=== PATIENT | male | born 1980 | race Two or more races ===

== ENCOUNTER 2021-09-15 10:52 | Outpatient (REF) | payer OTHER, SELFPAY ==
--- NOTE | ~2021-09-15 | XR_ITS ---
EXAMINATION: XR LUMBOSACRAL SPINE CLINICAL INFORMATION: Lower back pain COMPARISON: None TECHNIQUE: Three views of the lumbosacral spine. FINDINGS: No acute fracture or subluxation. Vertebral body height and alignment maintained. Disc spaces are maintained. Small endplate osteophytes at L2-L3. The sacroiliac joints are symmetric. The visualized sacrum appears intact. Normal bowel gas pattern. XR/XR lumbar spine 2-3V IMPRESSION: Mild degenerative change noted at L2-L3.
== END 2021-09-15 10:53 | disposition home or self-care (01) ==
LOC: HO.XRAY 10:52
PROVIDERS: Absent Provider Internal Medicine; PCP Internal Medicine; Visit Provider Family Medicine
DX: M54.50 Low back pain, unspecified (principal)
CPT/HCPCS: 72100

== ENCOUNTER 2022-11-22 14:35 | Emergency (ER) | payer BC, SELFPAY ==
[2022-11-22 14:49] VITALS: BP 134/77; PULSE 77; RESP 16; TEMP 36.1; O2SAT 99; BMI 28.8
--- NOTE | 2022-11-22 14:49 | ED.GENADULT ---
HPI - General Adult General Chief complaint: General Medical Stated complaint: Needs testing? Time Seen by Provider: 11/22/22 15:02 Source: patient Mode of arrival: ambulatory Limitations: no limitations History of Present Illness HPI narrative: 42 yo male healthy here with no complaints but wants STD testing and testing for Campbell. Patient reports he had sexual intercourse with a new sexual partner on Monday. They did use a condom for the intercourse but had oral sex which was not protected. Per patient this woman notified him that she woke up yesterday with a sore throat and was going to get tested for STDs as well as mono and strep. The patient has no symptoms but he would like to be tested for the same. Related Data Allergies Allergy/AdvReac Type Severity Reaction Status Date / Time No Known Allergies Allergy Unverified 11/22/22 14:49 [No Known Allergies*] Review of Systems Review of Systems: Yes all other systems are reviewed and are negative Constitutional: Constitutional: Reports no additional constitutional complaints, Denies body ache(s), Denies chills, Denies fever(s), Denies headache(s) and Denies weakness Eyes: Eyes: Reports no additional eye complaints and Denies change in vision ENT: Reports system reviewed and no additional complaints, except as documented, Denies dizziness, Denies headache(s), Denies nasal congestion, Denies nasal discharge and Denies neck pain Cardiovascular: Cardiovascular: Reports no additional cardiovascular complaints, Denies chest pain, Denies leg edema and Denies dyspnea Respiratory: Respiratory: Reports no additional respiratory complaints, Denies cough and Denies dyspnea Gastrointestinal: Gastrointestinal: Reports no additional gastrointestinal complaints, Denies abdominal pain, Denies diarrhea, Denies nausea and Denies vomiting Genitourinary: Genitourinary: Denies urinary incontinence Musculoskeletal: Musculoskeletal: Reports no additional musculoskeletal complaints, Denies back pain, Denies arthralgias, Denies joint swelling, Denies neck pain, Denies numbness and Denies tingling Integumentary/Breasts: Skin/Breast: Reports system reviewed and no additional complaints, except as docu and Denies rash Neurologic: Reports system reviewed and no additional complaints, except as documented, Denies dizziness, Denies headache(s), Denies numbness, Denies tingling and Denies weakness PMF Past Medical History Attestation statement: The following information was validated with the patient. Source: old records reviewed and nursing notes reviewed Social History Social History Advance Directives: No Advance Directives Information Provided: No Physical Exam ED Vital Signs: Vital Signs - 24 hr 11/22/22 14:49 Temperature 97.0 F Pulse Rate 77 Respiratory Rate 16 Blood Pressure 134/77 Pulse Oximetry 99 Oxygen Delivery Method Room Air BMI result Body Mass Index 28.8 Const General: cooperative, healthy appearing, comfortable and no acute distress Orientation/consciousness: patient oriented x3 Limitations: no limitations HENMT Head: Yes normal to inspection Ears: hearing grossly normal bilaterally and TM's normal bilaterally Throat: Yes posterior oropharynx normal, Yes tonsils normal and Yes uvula midline Eyes General: appearance normal, both eyes and all related structures Pupils: Equal, round and reactive pupils present Neck Neck: Yes normal visual inspection, Yes full ROM and Yes no lymphadenopathy Chest Chest palpation & inspection: normal inspection of the chest Resp Effort & Inspection: normal respiratory effort Auscultation: clear to auscultation bilaterally Cardio Rate: regular rate Rhythm: regular rhythm Peripheral pulses: Peripheral pulses 2+ throughout GI Inspection: Yes normal to inspection Palpation (GI): Soft to palpation and nontender General: Yes no CVA tenderness Back/Spine/Pelvis Back: no CVA tenderness Skin General skin exam: no rashes or lesions noted Neuro General: patient oriented x3 and moves all extremities Cranial nerves: Yes Equal, round and reactive pupils present Cognition (Neuro): normal cognition Gait exam (Neuro): Normal gait present Extrem General: Yes normal to inspection, Yes no pedal edema and Yes no calf tenderness Course Course Course Narrative: RME: 42yo M w/no sig PMHx c/o requesting testing for strep and STI testing. States his girlfriend has sore throat and fever and is being tested for strep and ?STI's today and patient would like to be tested for everything as well. Pt is asymptomatic. Is sexually active w/one partner at present. Also requesting mono testing COVID, Strep, CTNG, Campbell ordered Full HPI, ROS and PE to be performed by primary ED provider. Reevaluation(s) Reevaluation #1: testing for strep, COVID and mono are negative. CT NG testing are pending. As patient is asymptomatic we will wait for his results to come back prior to treatment. Reviewed worrisome signs and symptoms of when to return to the emergency room. Comfortable plan for discharge home for Medical Decision Making Medical Decision Making MDM Narrative: 42-year-old male here seeking STD testing and mono testing as he had recent unprotected sexual intercourse with a new sexual partner who has symptoms of sore throat and fever and is being tested for same. Exam is benign will send testing for gonorrhea, chlamydia, mono, strep and COVID Differential Diagnosis Differential Diagnoses: The differential diagnosis associated with the presentation includes exposure Lab Data Labs: Lab Results 11/22/22 11/22/22 11/22/22 Range/Units 15:18 15:18 15:18 COVID-19 (GEORGE) Negative (Negative) COVID-19 Clin Com See Note Monoscreen Negative (Negative) S. pyogenes GrpA CARLO Negative (Negative) Discharge Plan Discharge Clinical Impression: Screen for STD (sexually transmitted disease) Patient Disposition: Home, Self-Care Instructions: Sexually Transmitted Diseases (ED), Safe Sex Practices (ED) Additional Instructions: testing for mono, strep and covid are negative we sent testing for gonorrhea/chlamydia. We will only call you if these are positive Referrals: Juli Mac MD [Primary Care Provider] - 1 week (as needed)
--- NOTE | 2022-11-22 16:24 | PC.NURSE ---
Patient able to give urine sample, sample sent to lab.
[2022-11-22 16:38] VITALS: BP 131/68; PULSE 72; RESP 18; O2SAT 100
== END 2022-11-22 16:40 | disposition home or self-care (01) ==
PROVIDERS: Emergency Provider Emergency Medicine Emergency Medical Services; PCP Internal Medicine
DX: Z11.3 Encounter for screening for infections with a predominantly sexual mode of transmission (principal); Z11.8 Encounter for screening for other infectious and parasitic diseases; Z11.59 Encounter for screening for other viral diseases; Z72.89 Other problems related to lifestyle; Z72.51 High risk heterosexual behavior; Z20.822 Contact with and (suspected) exposure to COVID-19
CPT/HCPCS: 0353U; 86308; 87635; 87651; 99283; 99284

== ENCOUNTER 2023-02-06 14:45 | Outpatient (REF) | payer BC, SELFPAY ==
[2023-02-06 17:38] LABS: MANUAL DIFF FLAG NO
[2023-02-06 17:44] LABS: Basophils Absolute Auto 0.1 X10*3/uL (0.0-0.2); Basophils Percent Auto 0.7 % (0-2); Eosinophils Absolute Auto 0.1 X10*3/uL (0.0-0.4); Eosinophils Percent Auto 0.6 % (0-4); Hematocrit 47.3 % (42.0-52.0); Hemoglobin 15.7 g/dl (14.0-18.0); Imm Gran Abs Auto 0.03 X10*3/uL (0.00-0.03); Imm Gran Pct Auto 0.4 % (0.0-0.4); Lymphocytes Percent Auto 25.3 % (20-40); Mean Corpuscular HGB Conc 33.2 g/dl (31.0-36.0); Mean Corpuscular Hemoglobin 29.6 pg (27.0-33.0); Mean Corpuscular Volume 89.2 fL (80.0-98.0); Monocytes Absolute Auto 0.5 X10*3/uL (0.1-1.2); Monocytes Percent Auto 5.8 % (2-11); Neutrophils Absolute Auto 5.4 x10*3/uL (2.0-8.3); Neutrophils Percent Auto 67.2 % (45-73); Platelet Count 297 X10*3/uL (160-400); Red Cell Distribution Width 14.1 % (11.0-16.0); White Blood Count 8.1 X10*3/uL (4.8-10.8)
[2023-02-06 18:03] LABS: Anion Gap 11 (12-20); Blood Urea Nitrogen 14 mg/dL (9-16); Calcium 9.7 mg/dL (8.4-10.2); Carbon Dioxide 29 mmol/L (22-29); Chloride 105 mmol/L (96-108); Estimated Glomerular Filt Rate > 60; Glucose Random 73 mg/dL (60-115); Potassium 3.8 mmol/L (3.3-5.1); Sodium 141 mmol/L (135-145)
[2023-02-06 18:13] LABS: TSH reflex Free T4 2.05 uIU/mL (0.32-4.0)
== END 2023-02-06 14:46 | disposition home or self-care (01) ==
LOC: HO.CHCLDS 14:45
PROVIDERS: Visit Provider Internal Medicine
DX: E89.0 Postprocedural hypothyroidism (principal)
CPT/HCPCS: 36415; 80048; 84443; 85025

== ENCOUNTER 2023-02-06 15:44 | Outpatient (REF) | payer BC, SELFPAY ==
--- NOTE | ~2023-02-06 | XR_ITS ---
EXAMINATION: XR THORACOLUMBAR SPINE CLINICAL INFORMATION: Chronic midline thoracic back pain COMPARISON: 12/13/2017 TECHNIQUE: 3 views of the thoracic spine FINDINGS: Mild multilevel thoracic spondylosis. No thoracic vertebral body compression fractures are identified, although visualization limited due to overlying bone and soft tissues. XR/XR thoracic spine 2V IMPRESSION: Mild multilevel thoracic spondylosis. Additional imaging with CT scan or MRI should be considered for better visualization as these modalities are much more sensitive for detection of fracture or other underlying pathology.
== END 2023-02-06 15:45 | disposition home or self-care (01) ==
LOC: HO.XRAY 15:44
PROVIDERS: PCP Internal Medicine; Visit Provider Internal Medicine
DX: M54.6 Pain in thoracic spine (principal)
CPT/HCPCS: 72070

== ENCOUNTER 2023-02-16 15:28 | Outpatient (AMB) | payer BC, SELFPAY ==
--- NOTE | 2023-02-16 15:31 | MHC.OFFVIS ---
Intake Vital Signs 02/16/23 15:38 Height 5 ft 9 in Weight 193 lb 6 oz BMI 28.6 BP 124/95 H Blood Pressure Location Rt brachial Position Sitting Pulse 81 Pulse Source Pulse Oximeter Pulse Oximetry (%) 99 Oxygen Delivery Method Room Air Intake Visit Reasons: chronic thoracic back pain Allergies No Known Allergies [No Known Allergies*] Allergy (Verified 02/16/23 15:35) Medication List - Last Reconciled 02/16/23 by ROSALINO Rivera albuterol sulfate 90 mcg/actuation 2 puffs inhalation Q4-6H PRN celecoxib (Celebrex) 200 mg PO BID levothyroxine 137 mcg PO QAM HPI chronic thoracic back pain HPI Details Patient is a pleasant 42 years old male presents today for initial evaluation of mid thoracic back pain and pain between his shoulder blades. This has been chronic pain for him but reoccurred again over one year ago. Denies any trauma, injury or falls. Patient reports pain comes on with any movements and especially during his gym work outs. Pain is constant and rates in highest intensity at 10/10, least 3/10 and average for past month at 8/10. Pain affects his daily activities, functioning, sleep, mood and quality of life. He recently started on Celebrex for elbow tendonitis and has noted partial pain relief along with heat therapy and lidocaine patches. He continues to work out with gym but is not able to complete his daily workouts. Denies previous spine surgery or injections. Patient reports previous PT was directed at mid and low back pain and has aggravated his symptoms. 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 Thoracic spine MRI was reviewed with Dr. Colon and is noted below. Denies any fever, weight loss, chest pain, shortness of breaths, weakness, gait imbalances, bladder or bowel dysfunction or saddle anesthesia. Location Mid back radiates into lower back and flank areas bilat, shoulder blades Duration Chronic pain for >1 year Characteristics of symptom or complaint Aching, sharp, pins and tingling, stabbing Aggravating or associated factors Movements, pulling, lifting, bench pressing, working out Relieving factors Rest, Tylenol, Motrin, Advil, lidocaine patches, heating pads Treatment PT- made pain worse, HEP, gym PFSH Medical History (Updated 02/18/23 @ 23:53 by ROSALINO Rivera) Medial epicondylitis of right elbow Hypothyroidism Social History (Updated 02/16/23 @ 15:51 by Rupal Oh) Alcohol intake: current Alcohol intake frequency: a few times a month Alcohol type: hard liquor Patient Tobacco Use Status: Never used Tobacco Review of Systems Const All systems reviewed & are unremarkable except as noted in HPI and below Physical Exam Vital Signs: Last Vital Signs Pulse 81 02/16/23 15:38 BP 124/95 H 02/16/23 15:38 Pulse Ox 99 02/16/23 15:38 Oxygen Delivery Method Room Air 02/16/23 15:38 BMI result Body Mass Index 28.6 General: Appears afebrile. Alert and oriented. Mood and affect appropriate. Follows and participates in conversation appropriately. Respiratory effort is unlabored. No cough. Able to transition from sit to stand unassisted. Ambulates with bilaterally normal heel strike and toe off. Neck Neck: Yes normal visual inspection, Yes full ROM, Yes no lymphadenopathy, Yes supple, No anterior neck swelling and Yes no JVD Chest Chest palpation & inspection: normal inspection of the chest, no localized rib tenderness, no tenderness, No rash and other (multiple tattoos ) Resp Effort & Inspection: normal respiratory effort, able to speak in complete sentences, no cough and symmetric chest movement Back/Spine/Pelvis Other: Lumbar extension reproduces mild to moderate mid to lower back pain. Lumbar flexion reproduces stiffness in the mid thoracic regions. No tenderness to palpation across the thoracic spine. Unable to reproduce radicular pain with palpation over the mid and low thoracic spine. Moderate TTP throughout bilateral upper and lower trapezius and rhomboids muscles. Cervical Spine: cervical ROM normal and No Cervical spine tenderness Thoracic/Lumbar Spine: thoracic and lumbar spine normal to inspection, No Thoracic/lumbar spine scar(s), Lasegue's sign negative, straight leg raise negative bilaterally, pain with thoraco-lumbar ROM, paraspinal muscle tenderness, thoraco-lumbar spasm, No thoracic spinal tenderness and No lumbar spinal tenderness Results Reviewed Results Reviewed: XR LUMBOSACRAL SPINE 09/15/22 CLINICAL INFORMATION: Lower back pain COMPARISON: None TECHNIQUE: Three views of the lumbosacral spine. FINDINGS: No acute fracture or subluxation. Vertebral body height and alignment maintained. Disc spaces are maintained. Small endplate osteophytes at L2-L3. The sacroiliac joints are symmetric. The visualized sacrum appears intact. Normal bowel gas pattern. IMPRESSION: Mild degenerative change noted at L2-L3. XR THORACOLUMBAR SPINE 02/06/23 CLINICAL INFORMATION: Chronic midline thoracic back pain COMPARISON: 12/13/2017 TECHNIQUE: 3 views of the thoracic spine FINDINGS: Mild multilevel thoracic spondylosis. No thoracic vertebral body compression fractures are identified, although visualization limited due to overlying bone and soft tissues. MR SPINE THORACIC without CONTRAST 02/08/23 INDICATION: Chronic midline thoracic back pain; multilevel spondylosis of the thoracic spine. TECHNIQUE: Unenhanced multiplanar, multisequence MR imaging of the thoracic spine. COMPARISON: None available. FINDINGS: There is normal alignment of the thoracic vertebral bodies. Vertebral bodies are of normal height. There is abnormal T2 prolongation of the RIGHT pedicle, lamina and spinous process of T5 as well as the RIGHT pedicle of T6. No additional marrow signal changes are identified. No findings of vertebral body fracture. No findings of disc protrusion. No cord signal abnormality. No acute paraspinal abnormality identified. IMPRESSION: There is normal alignment of the thoracic vertebral bodies. Vertebral bodies are of normal height. There is abnormal T2 prolongation of the RIGHT pedicle, lamina and spinous process of T5 as well as the RIGHT pedicle of T6. No additional marrow signal changes are identified. No findings of vertebral body fracture. No findings of disc protrusion. No cord signal abnormality. No acute paraspinal abnormality identified. Whole-body bone scan and CT examination may better differentiate and classified this particular finding. Correlate with level of patient''s symptoms. Subhash Hammonds MD Assessment & Plan Assessment & Plan (1) Muscle spasm: Code(s): M62.838 - Other muscle spasm (2) Thoracic radiculitis: Code(s): M54.14 - Radiculopathy, thoracic region (3) Degenerative disc disease, cervical: Code(s): M50.30 - Other cervical disc degeneration, unspecified cervical region (4) Chronic midline thoracic back pain: Code(s): M54.6 - Pain in thoracic spine; G89.29 - Other chronic pain Plan Recommend formal course of Cervical spine physical therapy for potential disc radiculitis, as noted per recent thoracic spine MRI for multilevel cervical disc bulging and degenerative disc disease which can be a cause pain between his shoulder bladdes. For thoracic radicular pain, we will schedule T5-T6 retrolaminar injections with steroid with local and fluoroscopy. Expectations, risks and benefits were reviewed. Patient is aware she will be contacted to schedule this procedure. All questions were answered and the patient is in agreement of plan. Follow-up after injections and sooner as needed. Orders: Orders XR cervical spine min 6V 02/18/23 M50.30 - Other cervical disc degeneration, unspecified cervical region, M54.14 - Radiculopathy, thoracic region PT Evaluation and Treatment 02/17/23 M50.30 - Other cervical disc degeneration, unspecified cervical region, M54.14 - Radiculopathy, thoracic region, M62.838 - Other muscle spasm Medications: New methocarbamol 750 mg PO Q8H 30 tabs 0RF muscle M54.14 - Radiculopathy, thoracic region, M62.838 - Other muscle spasm Coding Level of Care Code New Pt Level 4 (10956) Diagnoses Muscle spasm M62.838 Thoracic radiculitis M54.14 Degenerative disc disease, cervical M50.30 Chronic midline thoracic back pain M54.6; G89.29
[2023-02-16 15:38] VITALS: BP 124/95; PULSE 81; O2SAT 99; BMI 28.6
== END 2023-02-16 16:07 | disposition home or self-care (01) ==
PROVIDERS: PCP Internal Medicine; Visit Provider Nurse Practitioner Family
DX: M62.838 Other muscle spasm (principal); M54.14 Radiculopathy, thoracic region; M50.30 Other cervical disc degeneration, unspecified cervical region; M54.6 Pain in thoracic spine; G89.29 Other chronic pain
CPT/HCPCS: 99204

== ENCOUNTER → 2023-02-16 15:28 | Outpatient (BNVA) | payer BC, SELFPAY | PROVIDERS: PCP Internal Medicine; Visit Provider Nurse Practitioner Family ==

== ENCOUNTER 2023-03-07 15:11 | Outpatient (REF) | payer BC, SELFPAY ==
[2023-03-09 16:09] LABS: Immunoglobulin A 435 mg/dL (47-310)
[2023-03-09 18:18] LABS: Gliadin Deamidated IgA Ab 6.2 U/mL; Gliadin Deamidated IgG Ab <1.0 U/mL; Transglutaminase Ab IgG <1.0 U/mL; Transglutaminase IgA <1.0 U/mL
[2023-03-14 13:18] LABS: Endomysial IgA Antibody Negative (Negative)
== END 2023-03-07 15:12 | disposition home or self-care (01) ==
LOC: HO.CHCLDS 15:11
PROVIDERS: Visit Provider Internal Medicine
DX: R14.0 Abdominal distension (gaseous) (principal)
CPT/HCPCS: 36415; 82784; 86231; 86258; 86364

== ENCOUNTER 2023-03-10 15:37 | Outpatient (REF) | payer BC, SELFPAY | END 2023-03-10 15:38 | disposition home or self-care (01) | LOC: HO.CHCLNP 15:37 | PROVIDERS: Visit Provider Internal Medicine | DX: R14.0 Abdominal distension (gaseous) (principal) | CPT/HCPCS: 87338 ==

== ENCOUNTER 2023-04-12 05:58 | Outpatient (REF) | payer BC, SELFPAY ==
--- NOTE | ~2023-04-12 | FL_ITS ---
EXAMINATION: XR FLUOROSCOPY WITH IMAGES CLINICAL INFORMATION: Radiculopathy, thoracic region. COMPARISON: None available. TECHNIQUE: Fluoroscopy Supervised By: Dr. Reuben Colon. Fluoroscopy Time: 0.2 minutes. Cumulative Dose: 6.61 mGy. DAP: 0.750 Gycm2. Images: 4. FINDINGS: Images demonstrate needle placement and epidural contrast injection of the lower thoracic spine. FL/FL guidance in treatment room IMPRESSION: Fluoroscopy guidance for pain management procedure.
== END 2023-04-12 05:59 | disposition home or self-care (01) ==
LOC: CF 05:58
PROVIDERS: Visit Provider Internal Medicine
DX: M54.14 Radiculopathy, thoracic region (principal); M54.6 Pain in thoracic spine; G89.29 Other chronic pain
CPT/HCPCS: 62321; J1020; J2795; Q9967

== ENCOUNTER 2023-04-12 08:02 | Outpatient (AMB) | payer BC, SELFPAY ==
[2023-04-12 08:06] VITALS: BP 122/82; PULSE 66; RESP 18; O2SAT 97; BMI 28.5
--- NOTE | 2023-04-12 08:06 | MHC.OFFVIS ---
Intake Vital Signs 04/12/23 08:06 04/12/23 09:05 Height 5 ft 9 in 5 ft 9 in Weight 193 lb 193 lb BMI 28.5 28.5 BP 122/82 126/84 Blood Pressure Location Lt brachial Lt brachial Position Sitting Sitting Respiration 18 18 Pulse 66 Pulse Source Pulse Oximeter Pulse Oximeter Pulse Oximetry (%) 97 98 Oxygen Delivery Method Room Air Room Air Comment Pre-Op Post-Op Intake Visit Reasons: Cal theraputic T5-T6 retrolaminar inj Allergies No Known Allergies [No Known Allergies*] Allergy (Verified 02/16/23 15:35) HPI Cal theraputic T5-T6 retrolaminar inj HPI Details Patient presents for scheduled procedure. Denies any recent cough, cold, infection, fever or other significant changes in medical history since last office visit. [facility] Medical History (Updated 02/18/23 @ 23:53 by ROSALINO Rivera) Medial epicondylitis of right elbow Hypothyroidism (Updated 02/16/23 @ 15:51 by Rupal Oh) Alcohol intake: current Alcohol intake frequency: a few times a month Alcohol type: hard liquor Patient Tobacco Use Status: Never used Tobacco Physical Exam Vital Signs: Last Vital Signs Pulse 66 04/12/23 08:06 Resp 18 04/12/23 09:05 BP 126/84 04/12/23 09:05 Pulse Ox 98 04/12/23 09:05 Oxygen Delivery Method Room Air 04/12/23 09:05 BMI result Body Mass Index 28.5 Office Procedures Joint Injection/Drain Joint Injection/Drain Details: Retrolaminar steroid injection, T5 and T6, bilateral After obtaining written consent, pre-procedure blood pressure and heart rate were stable and recorded in the nursing record. The patient was placed in the prone position. The thoracic spine area was widely prepped with chloraprep and draped in sterile fashion. Fluoroscopic guidance was used to identify the desired retrolaminar space and for needle placement. Subcutaneous 0.5% lidocaine was used to anesthetize the skin overlying the target. A 22 gauge spinal needle was advanced until bony contact was achieved with the target laminar surface. 1cc of omnipaque 180 was injected to rule out vascular and intrathecal uptake. Next 1.5 mL solution containing ropivacaine 0.5% and 10 mg Depo-Medrol was injected. The needle tract tubing was then cleared with 1 ml of 0.5% lidocaine. The needle was removed, skin cleansed and a sterile bandage was applied. The same procedure was repeated on both sides at T5 and T6 levels. The patient tolerated the procedure well and no complications were encountered. Following the procedure the patient's vital signs were stable. The patient was discharged home in good condition with post-procedural instructions. Time Out: Immediately prior to the procedure, the following was verbally confirmed that there is a signed consent form and that the correct patient, planned procedure, site and side are consistent with documentation and that necessary equipment and/or blood products are available prior to the start of the case. Complications: none EBL: <5 cc Coding Procedure code (CPT) selection complete Assessment & Plan Assessment & Plan (1) Chronic midline thoracic back pain: Code(s): M54.6 - Pain in thoracic spine; G89.29 - Other chronic pain (2) Thoracic radiculitis: Code(s): M54.14 - Radiculopathy, thoracic region Plan Patient is status post bilateral T5 and T6 retrolaminar injections. Patient tolerated procedure well and was discharged home in stable condition with discharge instructions. All questions were answered. We will follow-up via telephone or in clinic to assess response to therapy. A follow-up appointment was made during today's visit. Orders: Orders FL guidance in treatment room Today M54.14 - Radiculopathy, thoracic region Coding Level of Care Code Procedure Only Diagnoses Chronic midline thoracic back pain M54.6; G89.29 Thoracic radiculitis M54.14
[2023-04-12 09:05] VITALS: BP 126/84; RESP 18; O2SAT 98; BMI 28.5
== END 2023-04-12 08:56 | disposition home or self-care (01) ==
LOC: HO.PMCPRC 08:02
PROVIDERS: PCP Internal Medicine; Visit Provider Internal Medicine
DX: M54.14 Radiculopathy, thoracic region (principal); M54.6 Pain in thoracic spine; G89.29 Other chronic pain
CPT/HCPCS: 62321

== ENCOUNTER → 2023-05-12 08:34 | Outpatient (BNVA) | payer BC, SELFPAY | PROVIDERS: PCP Internal Medicine; Visit Provider Nurse Practitioner Family ==

== ENCOUNTER 2023-05-12 08:35 | Outpatient (AMB) | payer BC, SELFPAY ==
--- NOTE | 2023-05-12 08:36 | A.OFFVIS_ITS ---
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 Colon. Patient reports 70% pain relief since procedures with improved functioning, daily activities and sleep. He continues to endorse mild mid thoracic back pain and muscle spasms. Requests refill for methocarbamol. Patient has also stopped going to the gym and avoids heavy weight lifting and finds this is also partia lly improving his symptoms. He reports occasional axial cervical spine pain with muscle stiffness. He has full range of motion in all cervical planes. Patient was reminded to complete cervical spine xray ordered in on 02/18/23. Denies any recent cough, cold, infection, fever, chest pain, shortness of breaths or other significant changes in medical history since last office visit. Past Procedures: 04/12/23: therapeutic bilateral T5-T6 re trolaminar injection-70% ongoing pain relief PRIOR: Patient is a pleasant 42 years old male presents today for initial evaluation of mid thoracic back pain and pain between his shoulder blades. This has been chronic pain for him but reoccurred again over one year ago. Denies any trauma, injury or falls. Patient reports pain comes on with any movements and especially during his gym work outs. Pain is constant and rates in highest intensity at 10/10, least 3/10 and average for past month at 8/10. Pain affects his daily activities, functioning, sleep, mood and quality of life. He recently started on Celebrex for elbow tendonitis and has noted partial pain relief along with heat therapy and lidocaine patches. He continues to work out with gym but is not able to complete his daily workouts. Denies previous spine surgery or injections. Patient reports previous PT was directed at mid and low back pain and has aggravated his symptoms. 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 Thoracic spine MRI was reviewed with Dr. Colon and is noted below. Denies any fever, weight loss, chest pain, shortness of breaths, weakness, gait imbalances, bladder or bowel dysfunction or saddle anesthesia. Location Mid back radiates into lower back and flank areas bilat, shoulder blades Duration Chronic pain for >1 year Characteristics of symptom or complaint Aching, sharp, pins and tingling, stabbing Aggravating or associated factors Movements, pulling, lifting, bench pressing, working out Relieving factors Rest, Tylenol, Motrin, Advil, lidocaine patches, heating pads Treatment PT- made pain worse, HEP, gym PFSH Medical History Medial epicondylitis of right elbow Hypothyroidism Social History Alcohol intake: current Alcohol intake frequency: a few times a month Alcohol type: hard liquor Patient Tobacco Use Status: Never used Tobacco Review of Systems Const All systems reviewed & are unremarkable except as noted in HPI and below Physical Exam General: Appears afebrile. Alert and oriented. Mood and affect appropriate. Follows and participates in conversation appropriately. Respiratory effort is unlabored. No cough. Able to transition from sit to stand unassisted. Ambulates with bilaterally normal heel strike and toe off. Neck Neck: Yes normal visual inspection, Yes full ROM, Yes no lymphadenopathy, Yes supple, No anterior neck swelling and Yes no JVD Resp Effort & Inspection: normal respiratory effort, no cough and symmetric chest movement Back/Spine/Pelvis Cervical Spine: cervical ROM normal, cervical muscular tenderness, pain with cervical ROM and No Cervical spine tenderness Thoracic/Lumbar Spine: thoracic and lumbar spine normal to inspection, No Thoracic/lumbar spine scar(s), Lasegue's sign negative, straight leg raise negative bilaterally, pain with thoraco-lumbar ROM, paraspinal muscle tenderness, thoraco-lumbar spasm, No thoracic spinal tenderness and No lumbar spinal tenderness Results Reviewed Results Reviewed: XR LUMBOSACRAL SPINE 09/15/22 CLINICAL INFORMATION: Lower back pain COMPARISON: None TECHNIQUE: Three views of the lumbosacral spine. FINDINGS: No acute fracture or subluxation. Vertebral body height and alignment maintained. Disc spaces are maintained. Small endplate osteophytes at L2-L3. The sacroiliac joints are symmetric. The visualized sacrum appears intact. Normal bowel gas pattern. IMPRESSION: Mild degenerative change noted at L2-L3. XR THORACOLUMBAR SPINE 02/06/23 CLINICAL INFORMATION: Chronic midline thoracic back pain COMPARISON: 12/13/2017 TECHNIQUE: 3 views of the thoracic spine FINDINGS: Mild multilevel thoracic spondylosis. No thoracic vertebral body compression fractures are identified, although visualization limited due to overlying bone and soft tissues. MR SPINE THORACIC without CONTRAST 02/08/23 INDICATION: Chronic midline thoracic back pain; multilevel spondylosis of the thoracic spine. TECHNIQUE: Unenhanced multiplanar, multisequence MR imaging of the thoracic spine. COMPARISON: None available. FINDINGS: There is normal alignment of the thoracic vertebral bodies. Vertebral bodies are of normal height. There is abnormal T2 prolongation of the RIGHT pedicle, lamina and spinous process of T5 as well as the RIGHT pedicle of T6. No additional marrow signal changes are identified. No findings of vertebral body fracture. No findings of disc protrusion. No cord signal abnormality. No acute paraspinal abnormality identified. IMPRESSION: There is normal alignment of the thoracic vertebral bodies. Vertebral bodies are of normal height. There is abnormal T2 prolongation of the RIGHT pedicle, lamina and spinous process of T5 as well as the RIGHT pedicle of T6. No additional marrow signal changes are identified. No findings of vertebral body fracture. No findings of disc protrusion. No cord signal abnormality. No acute paraspinal abnormality identified. Whole-body bone scan and CT examination may better differentiate and classified this particular finding. Correlate with level of patient''s symptoms. Subhash Hammonds MD Assessment & Plan Assessment & Plan (1) Muscle spasm: Code(s): M62.838 - Other muscle spasm (2) Thoracic radiculitis: Code(s): M54.14 - Radiculopathy, thoracic region (3) Degenerative disc disease, cervical: Code(s): M50.30 - Other cervical disc degeneration, unspecified cervical region (4) Chronic midline thoracic back pain: Code(s): M54.6 - Pain in thoracic spine; G89.29 - Other chronic pain Plan Patient is status psot bilateral T5-T6 retrolaminar steroid injection on 04/12/23 with ongoing 70% pain relief, improved functioning and sleep. Recommend formal course of Cervical spine physical therapy for potential disc radiculitis, as noted per recent thoracic spine MRI for multilevel cervical disc bulging and degenerative disc disease which can be a cause pain between his shoulder blades. PT order was provided at previous visit. Patient was reminded to complete cervical spine xray. Patient is aware that he can not receive another therapeutic injection in the same area for another three months and will be eligible after 07/13/23. Patient is aware to monitor for side effects. All questions were answered and the patient is in agreement of plan. Follow up as needed. Medications: Refilled methocarbamol 750 mg PO Q8H 30 tabs 0RF muscle M54.14 - Radiculopathy, thoracic region, M62.838 - Other muscle spasm Coding Level of Care Code Est Pt Level 3 (07850) Diagnoses Muscle spasm M62.838 Thoracic radiculitis M54.14 Degenerative disc disease, cervical M50.30 Chronic midline thoracic back pain M54.6; G89.29
[2023-05-12 08:40] VITALS: BP 120/71; PULSE 63; O2SAT 100; BMI 28.2
== END 2023-05-12 08:47 | disposition home or self-care (01) ==
PROVIDERS: PCP Internal Medicine; Visit Provider Nurse Practitioner Family
DX: M62.838 Other muscle spasm (principal); M54.14 Radiculopathy, thoracic region; M50.30 Other cervical disc degeneration, unspecified cervical region; M54.6 Pain in thoracic spine; G89.29 Other chronic pain
CPT/HCPCS: 99213

== ENCOUNTER 2023-05-17 13:40 | Outpatient (REF) | payer BC, SELFPAY | END 2023-05-17 13:41 | disposition home or self-care (01) | LOC: HO.XRAY 13:40 | PROVIDERS: PCP Internal Medicine; Visit Provider Nurse Practitioner Family | DX: M50.30 Other cervical disc degeneration, unspecified cervical region (principal); M54.14 Radiculopathy, thoracic region | CPT/HCPCS: 72052 ==

== ENCOUNTER 2023-09-05 10:10 | Outpatient (REF) | payer BC, SELFPAY ==
[2023-09-05 14:28] LABS: MANUAL DIFF FLAG NO
[2023-09-05 14:42] LABS: Basophils Absolute Auto 0.1 X10*3/uL (0.0-0.2); Basophils Percent Auto 0.9 % (0-2); Eosinophils Absolute Auto 0.3 X10*3/uL (0.0-0.4); Eosinophils Percent Auto 2.7 % (0-4); Hematocrit 45.4 % (42.0-52.0); Imm Gran Abs Auto 0.05 X10*3/uL (0.00-0.03); Imm Gran Pct Auto 0.5 % (0.0-0.4); Lymphocytes Absolute Auto 1.4 X10*3/uL (1.2-4.9); Lymphocytes Percent Auto 14.8 % (20-40); Mean Corpuscular Hemoglobin 29.6 pg (27.0-33.0); Mean Corpuscular Volume 89.5 fL (80.0-98.0); Mean Platelet Volume 11.2 fL (9.4-12.4); Monocytes Absolute Auto 0.4 X10*3/uL (0.1-1.2); Monocytes Percent Auto 4.5 % (2-11); Neutrophils Absolute Auto 7.1 x10*3/uL (2.0-8.3); Neutrophils Percent Auto 76.6 % (45-73); Platelet Count 292 X10*3/uL (160-400); Red Blood Count 5.07 X10*6/uL (4.60-5.80); White Blood Count 9.2 X10*3/uL (4.8-10.8)
[2023-09-05 18:05] LABS: Alanine Aminotransferase 31 U/L (0-40); Albumin Level 4.2 g/dL (3.5-5.0); Alkaline Phosphatase 102 U/L (39-117); Anion Gap 12 (12-20); Aspartate Amino Transferase 23 U/L (5-37); Bilirubin Total 1.2 mg/dL (0.0-1.0); Blood Urea Nitrogen 22 mg/dL (9-16); Calcium 9.5 mg/dL (8.4-10.2); Carbon Dioxide 27 mmol/L (22-29); Chloride 107 mmol/L (96-108); Cholesterol 188 mg/dL (<200); Estimated Glomerular Filt Rate > 60; Glucose Random 79 mg/dL (60-115); HDL Cholesterol 68 mg/dL (>40); LDL Cholesterol Calculated 109 mg/dL (<100); Potassium 3.6 mmol/L (3.3-5.1); Sodium 142 mmol/L (135-145); Total Protein 7.7 g/dL (6.5-8.0); Triglycerides 59 mg/dL (<150)
[2023-09-05 18:08] LABS: TSH reflex Free T4 4.19 uIU/mL (0.32-4.0); Vitamin D 25-OH Total 28.3 ng/mL (>30)
[2023-09-05 18:42] LABS: Free T4 (Free Thyroxine) 1.04 ng/dL (0.71-1.85)
[2023-09-05 19:14] LABS: Folate 8.1 ng/mL (> or = 4.0); Prostate Specific Antigen Scr 1.78 ng/mL (<0.05-4.0); Vitamin B12 420 pg/mL (200-900)
[2023-09-10 14:13] LABS: Testosterone, Free 30.5 pg/mL (35.0-155.0); Testosterone, Total 186 ng/dL (250-1100)
== END 2023-09-05 10:11 | disposition home or self-care (01) ==
LOC: HO.CHCLDS 10:10
PROVIDERS: Visit Provider Internal Medicine
DX: Z00.00 Encounter for general adult medical examination without abnormal findings (principal); Z12.5 Encounter for screening for malignant neoplasm of prostate; N52.8 Other male erectile dysfunction; E89.0 Postprocedural hypothyroidism
CPT/HCPCS: 36415; 80053; 80061; 82306; 82607; 82746; 84153; 84402; 84403; 84439; 84443; 85025

== ENCOUNTER 2023-09-27 14:55 | Outpatient (REF) | payer BC, SELFPAY ==
[2023-10-04 15:43] LABS: Testosterone, Free 43.2 pg/mL (35.0-155.0); Testosterone, Total 272 ng/dL (250-1100)
== END 2023-09-27 14:56 | disposition home or self-care (01) ==
LOC: HO.CHCLDS 14:55
PROVIDERS: Visit Provider Internal Medicine
DX: N52.8 Other male erectile dysfunction (principal); E89.0 Postprocedural hypothyroidism
CPT/HCPCS: 36415; 84402; 84403

== ENCOUNTER 2023-10-13 08:41 | Outpatient (REF) | payer BC, SELFPAY ==
[2023-10-20 13:18] LABS: Testosterone, Free 65.2 pg/mL (35.0-155.0); Testosterone, Total 388 ng/dL (250-1100)
== END 2023-10-13 08:42 | disposition home or self-care (01) ==
LOC: HO.CHCLDS 08:41
PROVIDERS: Visit Provider Internal Medicine
DX: N52.8 Other male erectile dysfunction (principal); E29.1 Testicular hypofunction
CPT/HCPCS: 36415; 84402; 84403

== ENCOUNTER 2024-02-04 02:35 | Emergency (ER) | payer OTHER, BC, SELFPAY ==
[2024-02-04 02:40] VITALS: BP 136/84; PULSE 108; O2SAT 97
[2024-02-04 02:47] VITALS: BP 116/74; PULSE 80; RESP 16; TEMP 36.7; O2SAT 99
[2024-02-04 02:51] VITALS: BMI 27.9
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
[2024-02-04 03:33] VITALS: BP 116/74; PULSE 80; RESP 16; TEMP 36.7; O2SAT 99
== END 2024-02-04 03:33 | disposition home or self-care (01) ==
PROVIDERS: Emergency Provider Internal Medicine; PCP Internal Medicine
DX: S01.01XA Laceration without foreign body of scalp, initial encounter (principal); V43.52XA Car driver injured in collision with other type car in traffic accident, initial encounter; Y93.89 Activity, other specified; Y92.488 Other paved roadways as the place of occurrence of the external cause; Y99.8 Other external cause status; Z79.899 Other long term (current) drug therapy
CPT/HCPCS: 99283

== ENCOUNTER 2024-02-05 21:29 | Emergency (ER) | payer OTHER, BC, SELFPAY ==
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
[2024-02-05 21:38] VITALS: BP 114/81; PULSE 79; RESP 20; TEMP 37.1; O2SAT 97; BMI 34.2
[2024-02-05 23:22] VITALS: BP 133/80; PULSE 62; RESP 16; TEMP 36.7; O2SAT 99
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
[2024-02-06 00:29] VITALS: BP 140/82; PULSE 57; RESP 16; TEMP 36.2; O2SAT 98
== END 2024-02-06 00:30 | disposition home or self-care (01) ==
PROVIDERS: Emergency Provider Emergency Medicine; PCP Internal Medicine
DX: S01.91XA Laceration without foreign body of unspecified part of head, initial encounter (principal); R51.9 Headache, unspecified; R42 Dizziness and giddiness; M54.50 Low back pain, unspecified; V43.52XA Car driver injured in collision with other type car in traffic accident, initial encounter; Y93.89 Activity, other specified; Y92.488 Other paved roadways as the place of occurrence of the external cause; Y99.8 Other external cause status; Z79.899 Other long term (current) drug therapy
CPT/HCPCS: 70450; 99282; 99284

== ENCOUNTER 2024-05-01 15:35 | Outpatient (REF) | payer OTHER, BC, SELFPAY ==
--- NOTE | ~2024-05-01 | XR_ITS ---
EXAMINATION: XR CHEST CLINICAL INFORMATION: cough x 3 months COMPARISON: X-ray dated October 04, 2017 TECHNIQUE: 2 views of the chest were obtained. FINDINGS: Submitted for interpretation on May 02, 2024. No consolidation, pleural effusion or pneumothorax. Pulmonary reticular pattern. Cardiomediastinal silhouette demonstrates normal size with a round apex. Osseous structures are intact. XR/XR chest 2V IMPRESSION: No acute airspace disease. Electronically signed by: Juan Miguel MD 05/02/2024 07:20 AM SHAMIR
== END 2024-05-01 15:36 | disposition home or self-care (01) ==
LOC: HO.XRAY 15:35
PROVIDERS: Visit Provider Nurse Practitioner Family
DX: R05.8 Other specified cough (principal)
CPT/HCPCS: 71046

== ENCOUNTER → 2024-05-01 15:39 | Outpatient (BNV) | payer OTHER, BC, SELFPAY | PROVIDERS: Visit Provider Radiology Diagnostic Radiology | DX: R05.8 Other specified cough (principal) | CPT/HCPCS: 71046 ==

== ENCOUNTER 2024-05-14 09:38 | Outpatient (REF) | payer BC, SELFPAY ==
[2024-05-14 15:03] LABS: C Reactive Protein 0.51 mg/dL (< or = 0.50)
[2024-05-14 15:24] LABS: Erythrocyte Sedimentation Rate 23 MM/HR (0-15)
[2024-05-14 15:31] LABS: TSH reflex Free T4 1.44 uIU/mL (0.32-4.0)
[2024-05-14 18:56] LABS: CT PCR NOT DETECTED (Not Detect.); NG PCR NOT DETECTED (Not Detect.)
[2024-05-16 13:58] LABS: Scleroderma 70 Antibody <1.0 NEG AI (<1.0 NEG)
[2024-05-16 14:05] LABS: Syphilis Screen Nonreactive (Nonreactive)
[2024-05-16 15:11] LABS: HIV AB/AG Nonreactive (Nonreactive); HIV Num 1 0.06 S/CO (0.00-0.99)
[2024-05-17 07:24] LABS: Anti Nuclear Antibody Screen POSITIVE (NEGATIVE)
[2024-05-19 01:04] LABS: Testosterone, Total 399 ng/dL (250-1100)
== END 2024-05-14 09:39 | disposition home or self-care (01) ==
LOC: HO.CHCLDS 09:38
PROVIDERS: Visit Provider Internal Medicine
DX: R05.3 Chronic cough (principal); Z11.3 Encounter for screening for infections with a predominantly sexual mode of transmission; N52.8 Other male erectile dysfunction
CPT/HCPCS: 36415; 84403; 84443; 85652; 86038; 86039; 86140; 86235; 86780; 87389; 87491; 87591

== ENCOUNTER 2024-06-12 10:25 | Outpatient (AMB) | payer BC, SELFPAY ==
--- NOTE | 2024-06-12 10:26 | MHC.OFFVIS ---
Vital Signs 06/12/24 10:29 Height 5 ft 8 in Weight 206 lb BMI 31.3 BP 120/68 Blood Pressure Location Rt brachial Position Sitting Pulse 74 Pulse Source Pulse Oximeter Pulse Oximetry (%) 97 Oxygen Delivery Method Room Air Intake Visit Reasons: chronic cough/ x-ray Barge Engineer Required: No Public Service Administrator: Public Service Administrator offered & declined Accompanied by: Self / Same As Patient Allergies No Known Allergies [No Known Allergies*] Allergy (Verified 06/12/24 10:33) Medication List - Last Reconciled 06/12/24 by Adry West LPN albuterol sulfate 90 mcg/actuation 2 puffs inhalation Q4-6H PRN albuterol sulfate 90 mcg/actuation (ProAir RespiClick) 2 inhalations inhalation Q6H PRN celecoxib (Celebrex) 200 mg PO BID cholecalciferol (vitamin D3) 50 mcg PO DAILY cyclobenzaprine 10 mg PO TID levothyroxine 137 mcg PO QAM methocarbamol 750 mg PO Q8H naproxen (Naprosyn) 500 mg PO BID HPI HPI chronic cough/ x-ray: Details: Kike is a pleasant 43 year old male, former minimal smoker, with underlying asthma and hypothyroidism. He was referred by PCP for pulmonary evaluation for chronic cough. He reports harsh cough is dry in nature, intermittent wheezing and dyspnea that started about 4-5 months ago with no change on prednisone, zyrtec or tessalon perles. PCP sent for CXR which revealed reticular changes of bases and has a chest CT scheduled in two weeks. He reports h/o asthma since childhood never requiring intubation but did report thoracentesis s/p PNA at the age of [age]. Since then no recurrent URI or exacerbations. Previously doing well on albuterol PRN. PCP recently started on Advair however using infrequently. He was also sent for autoimmune workup with +ANNI, elevated ESR and slight elevation in CRP. He reports mother with Lupus otherwise no pertinent family history. He endorses cervical and lumbar pain otherwise denies joint pain, skin rashes, skin changes, dry mouth, dry eyes. 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 He denies seasonal allergies. [facility] Medical History Medial epicondylitis of right elbow Hypothyroidism Social History (Updated 06/12/24 @ 10:37 by Adry West LPN) Alcohol intake: current Alcohol intake frequency: a few times a month Alcohol type: hard liquor Patient Tobacco Use Status: Former Tobacco user Cigarette Packs Per Day: 0.5 Years Smoked: 5 years Review of Systems Const Denies chills, Denies excessive sweating, Denies fever(s), Denies headache(s) and Denies night sweats Eyes Denies dry eyes, Denies irritation and Denies itchy eyes ENT Reports Normal hearing present, Denies headache(s), Denies nasal congestion, Denies nasal discharge, Denies post nasal drip and Denies sore throat Card Denies chest pain, Denies chest pain at rest, Denies chest pain with activity, Denies claudication, Denies leg edema, Denies orthopnea and Denies paroxysmal nocturnal dyspnea Resp Denies chest congestion, Denies excessive phlegm production, Denies pain on inspiration, Denies pain with cough and Denies stridor Musc Denies myalgias Neuro Reports Normal hearing present and Denies headache(s) Endo Denies excessive sweating Raymundo/Lymph Denies lymphadenopathy Aller/Immun Denies itchy eyes and Denies seasonal rhinorrhea Physical Exam Vital Signs: Last Vital Signs Pulse 74 06/12/24 10:29 BP 120/68 06/12/24 10:29 Pulse Ox 97 06/12/24 10:29 Oxygen Delivery Method Room Air 06/12/24 10:29 BMI result Body Mass Index 31.3 Const General: cooperative, healthy appearing, comfortable, no acute distress, well developed and alert Orientation/consciousness: patient oriented x3 Limitations: no limitations HEENT Head: Yes normal to inspection, Yes normocephalic and Yes atraumatic Ears: hearing grossly normal bilaterally and external ears normal Eyes General: appearance normal, both eyes and all related structures Eyelids: Yes eyelids normal Sclerae: sclerae normal EOM: EOMs intact bilaterally Neck Neck: Yes normal visual inspection and Yes no lymphadenopathy Lymphatic: no lymphadenopathy noted Chest Chest palpation & inspection: normal inspection of the chest Resp Other: faint inspiratory bibasilar crackles Effort & Inspection: normal respiratory effort, able to speak in complete sentences, no audible wheezes, no cough, no stridor, not tachypneic, no tripod positioning and no use of accessory muscles Cardio Jugular venous distension: no JVD Rate: regular rate Rhythm: regular rhythm Skin Other: warm, dry General skin exam: no rashes or lesions noted Neuro General: patient oriented x3 Cranial nerves: Yes Normal hearing present Cognition (Neuro): normal cognition Gait exam (Neuro): Normal gait present Extrem General: Yes normal to inspection, Yes capillary refill normal, Yes no clubbing, cyanosis or edema and Yes no pedal edema Psych Appearance: grossly normal and well kempt Speech and movement: Normal speech and movement present and Clear speech present Affect: normal affect Attitude: cooperative Thought process: Normal thought process present Thought content: Normal thought content present Insight: Good insight present (Psych) Judgement: Good judgement present (Psych) Assessment & Plan Assessment & Plan (1) Asthma: Code(s): J45.909 - Unspecified asthma, uncomplicated Category: Medical (2) Cough: Code(s): R05.9 - Cough, unspecified Category: Medical (3) Abnormal chest xray: Code(s): R93.89 - Abnormal findings on diagnostic imaging of other specified body structures Category: Medical (4) ANNI positive: Code(s): R76.8 - Other specified abnormal immunological findings in serum Category: Medical Plan Kike presents for pulmonary evaluation for chronic cough and abnormal CXR. Findings suggestive of underlying ILD possibly related to underlying autoimmune condition. He has chest CT scheduled and will send for PFT. Encouraged patient to consistently use Advair and will send prednisone as patient with significant postexhalation cough on exam. Will also enter referral to rheumatology given labs. All questions were answered and patient is in agreement of plan. Will follow up in 6 weeks or sooner if needed. Orders: Orders PFT pulmonary function test Today J45.909 - Unspecified asthma, uncomplicated Referrals Rheumatology Referral R05.9 - Cough, unspecified, R76.8 - Other specified abnormal immunological findings in serum, R93.89 - Abnormal findings on diagnostic imaging of other specified body structures Medications: New fluticasone propion-salmeterol 230-21 mcg/actuation (Advair HFA) 2 puffs inhalation Q12H 12 grams 3RF prednisone see taper instructions; 40 mg Daily x3 days, 30 mg daily x3 days, 20 mg daily x3 days, 10 mg daily x3 days 10 mg PO DIRECTED 30 tabs 0RF Coding Level of Care Code New Pt Level 4 (18779) Diagnoses Asthma J45.909 Cough R05.9 Abnormal chest xray R93.89 ANNI positive R76.8
[2024-06-12 10:29] VITALS: BP 120/68; PULSE 74; O2SAT 97; BMI 31.3
--- OUTSIDE RECORDS SUMMARY | 2024-06-12 11:30 | XMS_ITS | Encounter Summary ---
Author Organization [employer] Address [address] [place] [address] Care Team Providers Care Sales Planning Coordinator Name Role Phone Juli Mac MD Primary Care Provider [phone] Reason for Referral * Consultation (Routine) - Authorized Specialty Diagnoses / Procedures Referred By Rissa edmonds Referred To Contact Pulmonary Disease Diagnoses Chronic cough Juli Mac MD [address], [place] Phone: tel: fax: Ambrose Ramos [address] [place] [address] [place] [address] Phone: tel: fax: Referral ID Status Reason Start Date Expiration Date Visits Requested Visits Authorized [id number] Authorized Specialty Services Required 05/13/2025 1 1 * Imaging (Routine) - Pending Review Specialty Diagnoses / Procedures Referred By Contac t Referred To Contact Radiology Diagnoses Chronic cough Procedures CT Chest w/o Contrast Juli Mac MD [address] [place] [address] Phone: tel: fax: [address] Phone: tel: fax: Referral ID Status Reason Start Date Expiration Date V isits Requested Visits Authorized [id number] Pending Review 05/13/2024 05/13/2025 1 1 Encounter Details Date Type Department Care Team (Latest Contact Info) Description 05/13/2024 11:15 AM EST Office Visit [facility] CH[facility] MED & PEDS [address] [place] [address] Juli Mac MD [address] [place] [address] Chronic cough (Primary Dx); Other male erectile dysfunction; Screen for STD (sexually transmitted disease); Postablative hypothyroidism Social History Tobacco Use Types Packs/Day Years Used Date Smoking Tobacco: Never Passive Smoke Exposure: Never Smokeless Tobacco: Never Alcohol Use Standard Drinks/Week Comments Defer 0 (1 standard drink = 0.6 oz pur e alcohol) Depression Answer Date Recorded Patient Health Questionnaire-9 Score 6 09/05/2023 Patient Health Questionnaire-9 Score 6 09/05/2023 Last PHQ-9: Questionnaire Data Not on file 0 09/05/2023 Housing Stability Answer Date Recorded What is your housing situation today? I have tamiko pinon 08/28/[address] you li ve. Do you have problems with any of the following? None of the above 08/28/2023 Food Insecurity Answer Date Recorded Within the past 12 months, y ou worried that your food would run out before you got money to buy more: Never True 08/28/2023 Within the past 12 months,th e food you bought just didn't last and you didn't have enough money to get more: Never True 12/2023 Transportation Answer Date Recorded In the past 12 months, has l ack of transportation kept you from medical appts, meetings, work or from getting things needed for daily living? No 08/28/2023 Utilities Answer Date Recorded In the past 12 months, has t he electric, gas, oil or water company threatened to shut off services in your home? No 08/28/2023 Depression Answer Date Recorded Patient Health Questionnaire-2 Score 3 09/05/2023 Sex and Gender Information Value Date Recorded Sex Assigned at Male 03/21/2022 10:31 AM EDT Legal Sex Male 10:31 AM EDT Gender Identity Male 03/21/2022 10:31 AM EDT Sexual Orientation Straight 03/21/2022 10 :31 AM EDT documented as of this encounter Last Filed Vital Signs Vital Sign Reading Time Taken Comments Blood Pressure 124/88 05/13/2024 11:24 AM EST Pulse 63 05/13/2024 11:24 AM EST Temperature 36.7 ??C (98 ??F) 05/13/2024 11:24 AM EST Respiratory Rate 20 05/13/2024 11:24 AM EST Oxygen Saturation 98% 05/13/2024 11:24 AM EST Inhaled Oxygen Concentration - - Weight 89.8 kg (198 lb) 05/13/2024 11:24 AM EST Height 175.3 cm (5' 9 ) 05/13/2024 11:24 AM EST Body Mass Index 29.24 05/13/2024 11:24 AM EST documented in this encounter Progress Notes * Juli Mac MD - 05/13/2024 11:15 AM EST Subjective Patient ID: Kike Gómez is a 43 y.o. male who presents for No chief complaint on file.. HPI Patient with history of bronchial asthma. He feels stable now. Denies shortness of breath at rest or during exercise. He is here for follow-up on a cough that started over 3 months ago. Denies any improvement with a course of prednisone and treatment with cetirizine and benzonatate. An x-ray was ordered and is concerning for A pulmonary reticular pattern. No reported fever or shortness of breath during the evaluation today. Mr Kike Gómez is also concerned about his history of erectile dysfunction. Using Cialis 5 mg before sexual encounter with is partially effective. He would like an increased dose of this medication He also reports history of erectile dysfunction and low testosterone level and multiple family member including his brother. He would like to get the annual testosterone level. Would like to get an STD screen today. Patient is asymptomatic. Patient Active Problem List Diagnosis Chronic back pain Hypothyroidism Moderate persistent asthma without complication Current Outpatient Medications on File Prior to Visit Medication Sig Dispense Refill albuterol (ProAir HFA) 108 (90 Base) MCG/ACT inhaler inhale 2 puff by inhalation route every 4 to 6hours as needed 18 g 3 albuterol 108 (90 Base) MCG/ACT inhaler Inhale 2 puffs every 6 (six) hours if needed for wheezing. 18 g 11 [] benzonatate (Tessalon Perles) 100 MG capsule Take 1 capsule (100 mg) by mouth if needed in the morning, at noon, and at bedtime for cough for up to 7 days. Do not crush or chew. 20 capsule 0 celecoxib (CeleBREX) 200 MG capsule TAKE 1 CAPSULE BY MOUTH TWICE A DAY 60 capsule 0 cetirizine (ZyrTEC) 10 MG tablet Take 1 tablet (10 mg) by mouth Once per day. 30 tablet 11 cholecalciferol (Vitamin D-3) 25 MCG (1000 UT) tablet Take 1 tablet (25 mcg) by mouth in the morning. 60 tablet 11 cholecalciferol (Vitamin D-3) 50 MCG (2000 UT) capsule TAKE 1 CAPSULE BY MOUTH EVERY DAY (Patient not taking: Reported on 02/06/2023) 90 capsule 3 cholecalciferol (Vitamin D-3) 50 MCG (2000 UT) capsule 1 Capsule a day 30 capsule 11 levothyroxine (Synthroid, Levoxyl) 137 MCG tablet TAKE 1 TABLET BY MOUTH EVERY MORNING 90 tablet 1 Nystop 117244 UNIT/GM powder APPLY TO AFFECTED AREA TWICE A DAY 30 g 0 tadalafil (Cialis) 5 MG tablet Take 1 tablet (5 mg) by mouth Once per day. 12 tablet 1 tadalafil (Cialis) 5 MG tablet Take 1 tablet (5 mg) by mouth Once per day. 30 tablet 11 No current facility-administered medications on file prior to visit. Review of Systems Constitutional: Negative for appetite change, chills and diaphoresis. Eyes: Negative for photophobia, pain and redness. Respiratory: Negative for cough, choking and shortness of breath. Musculoskeletal: Negative for gait problem and joint swelling. Objective Physical Exam Constitutional: General: He is not in acute distress. Appearance: Normal appearance. He is not ill-appearing, toxic-appearing or diaphoretic. Cardiovascular: Rate and Rhythm: Normal rate. Pulmonary: Effort: Pulmonary effort is normal. No respiratory distress. Breath sounds: Normal breath sounds. No stridor. No wheezing or rhonchi. Neurological: Mental Status: He is alert. Assessment/Plan Diagnoses and all orders for this visit: Chronic cough Comments: The differential diagnosis was discussed Patient will be contacted with the results of the CT scan Orders: - CT Chest w/o Contrast; Future - Referral to Pulmonology; Future - fluticasone-salmeterol (Advair) 115-21 MCG/ACT inhaler; Inhale 2 puffs in the morning and at bedtime. Rinse mouth with water after use to reduce aftertaste and incidence of candidiasis. Do not swallow. - loratadine (Claritin) 10 MG tablet; Take 1 tablet (10 mg) by mouth Once per day. - ANNI Screen,IFA, with Reflex to Titer and Pattern; Future - C-reactive Protein; Future - Sed Rate by Modified Westergren; Future - SCL-70 Antibody; Future - SS A RO SJOGRENS ANTIBODY; Future Other male erectile dysfunction Comments: Repeat testosterone level Patient will be contacted with results We will consider a new referral to endocrinology if it is low Orders: - Testosterone, Total, males (Adult), IA; Future - tadalafil (Cialis) 10 MG tablet; Take 0.5 tablets (5 mg) by mouth Once per day. To take 30 minutes prior to sexual encounter - TSH W/Reflex to FT4; Future Screen for STD (sexually transmitted disease) - HIV-1/2 Antigen and Antibodies, Fourth Generation, with Reflexes; Future - Chlamydia/N. Gonorrhoeae RNA, TMA, Urogenitial - Syphilis Screen; Future Postablative hypothyroidism No change in the current medication for now documented in this encounter Plan of Treatment Upcoming Encounters Date Type Department Care Team (Late st Contact Info) Description 06/25/2024 1:45 PM EST Office Visit [facility] CH[facility] MED & PEDS [address] [place] [address] Juli Mac MD [address] [place] [address] Scheduled Orders Name Type Priority Associated Diagnoses Orde r Schedule CT Chest w/o Contrast Imaging Routine Chronic cough Expected: 05/13/2024, Expires: 05/13/2025 SS A RO SJOGRENS ANTIBODY Lab Routine Chronic cough Expected: 05/13/2024 (Approximate), Expires: 05/13/2025 Scheduled Referrals Name Type Priority Associated Diagnoses Order Schedule Referral to Pulmonology Outpatient Referral Routine Chronic cough Expected: 05/13/2024 (Approximate), Expires: 05/13/2025 documented as of this encounter Procedures Procedure Name Priority Date/Time Associated Diagnosis Comments CHLAMYDIA/N. GONORRHOEAE RNA, TMA, UROGENITAL Routine 05/14/2024 9:42 AM EST Screen for STD (sexually transmitted disease) SYPHILIS SCREEN Routine 05/14/2024 9:41 AM EST Screen for STD (sexually transmitted disease) TSH W/REFLEX TO FT4 Routine 05/14/2024 9 :41 AM EST Other male erectile dysfunction SCL-70 ANTIBODY Routine 05/14/2024 9:41 AM EST Chronic cough HIV 1/2 ANTIGEN/ANTIBODY, FOURTH GENERATION W/RFL Routine 05/14/2024 9:41 AM EST Screen for STD (sexually transmitted disease) SED RATE BY MODIFIED WESTERGREN Routine 05/14/2024 9:41 AM EST Chronic cough C-REACTIVE PROTEIN Routine 05/14/2024 9: 41 AM EST Chronic cough ANNI SCREEN, IFA, W/REFL TITER AND PATTERN Routine 05/14/2024 9:41 AM EST Chronic cough TESTOSTERONE, TOTAL, MALES (ADULT), IA Routine 05/14/2024 9:41 AM EST Other male erectile dysfunction documented in this encounter Results * Chlamydia/N. Gonorrhoeae RNA, TMA, Urogenitial (05/14/2024 9:42 AM EST) CT PCR NOT DETECTED Not Detect. [facility] Comment:A not detected test result does not exclude the possibilityof infection because test results can be affected byimproper specimen collection, concurrent antibiotic therapy,or the number of organisms in the specimen which may bebelow the sensitivity of the test. As with many diagnostictests, results from the Xpert CT/NG assay should beinterpreted in conjunction with other laboratory andclinical data available to the clinician.Xpert CT/NG performance has not been evaluated in patientsless than 14 years of age. The assay should not be used forthe evaluationof suspected sexual abuse or for other medico-legalindications. Additional testing is recommended in anycircumstance when false positive or false negative resultscould lead to adverse medical, social or psychologicalconsequences. NG PCR NOT DETECTED Not Detect. [facility] Comment:A not detected test result does not exclude the possibilityof infection because test results can be affected byimproper specimen collection, concurrent antibiotic therapy,or the number of organisms in the specimen which may bebelow the sensitivity of the test. As with many diagnostictests, results from the Xpert CT/NG assay should beinterpreted in conjunction with other laboratory andclinical data available to the clinician.Xpert CT/NG performance has not been evaluated in patientsless than 14 years of age. The assay should not be used forthe evaluationof suspected sexual abuse or for other medico-legalindications. Additional testing is recommended in anycircumstance when false positive or false negative resultscould lead to adverse medical, social or psychologicalconsequences. Urine, Random 05/14/2024 9:4 2 AM EST 05/14/2024 2:15 PM EST Narrative [facility] - 05/14/2024 6:56 PM EST Urine Juli Mac MD LAB MICROBIOLOGY - GENERAL ORDERABLES Final Result [facility] [address] [place] [phone] * Syphilis Screen (05/14/2024 9:41 AM EST) Syphilis Screen Nonreactive Nonreactive [facility] Blood 05/14/2024 9:41 AM EST 05/14/2024 2:25 PM EST Juli Mac MD LAB BLOOD ORDERABLES Final Result Performing Organization Address [facility] Co de Phone Number [facility] [address] [place] [phone] * TSH W/Reflex to FT4 (05/14/2024 9:41 AM EST) TSH reflex Free T4 1.44 0.32 - 4.0 uIU/mL [facility] Blood Venous blood specimen / Unknown 05/14/2024 9:41 AM EST 05/14/2024 2:25 PM EST us Juli Mac MD LAB BLOOD ORDERABLES Final Result Performing Organization Address [facility] de Phone Number [facility] [address] [place] [phone] * HIV-1/2 Antigen and Antibodies, Fourth Generation, with Reflexes (05/14/2024 9:41 AM EST) HIV AB/AG Nonreactive Nonreactive [facility] Comment:HIV-1 p24 Ag and/or HIV-1/HIV-2 Ab not detected.A test result that is nonreactive does not exclude thepossibility of exposure to or infection with HIV-1 and/orHIV-2. Nonreactive results in this assay for individualswith prior exposure to HIV-1 and/or HIV-2 may be due toantigen and antibody levels that are below the limit ofdetection of this assay.The [employer] HIV Ag/Ab Combo assay result andsupplemental assay results should be interpreted inconjunction with the patient's clinical presentation,history and other laboratory results. If the results areinconsistent with clinical evidence, additional testing issuggested to confirm the result. Blood Venous blood specimen / Unknown 05/14/2024 9:41 AM EST 05/14/2024 2:25 PM EST us Juli Mac MD LAB BLOOD ORDERABLES Final Result Performing Organization Address [facility]/ZIP Co de Phone Number [facility] [address] [place] [phone] * SCL-70 Antibody (05/14/2024 9:41 AM EST) SCL-70 Antibody <1.0 NEG <1.0 NEG AI [facility] Comment:THIS TEST WAS PERFOR MED AT:[address] [place] [id number] KELLY MD Blood Venous blood specimen / Unknown 05/14/2024 9:41 AM EST 05/14/2024 2:25 PM EST Juli Mac MD LAB BLOOD ORDERABLES Final Result Performing Organization Address [facility] Co de Phone Number [facility] [address] [place] [phone] * (ABNORMAL) Sed Rate by Modified Lisren (05/14/2024 9:41 AM EST) Erythrocyte Sedimentation Rate 23(H) 0 - 15 MM/HR [facility] Comment:Patients with polycy themia and many hemoglobin abnormalitiesmay have depressed sed rates whereas patients with anemiamay have elevated sed rates. Blood Venous blood specimen / Unknown 05/14/2024 9:41 AM EST 05/14/2024 2:25 PM EST us Juli Mac MD LAB BLOOD ORDERABLES Final Result Performing Organization Address [facility] Co de Phone Number [facility] [address] [place] [phone] [phone] * (ABNORMAL) C-reactive Protein (05/14/2024 9:41 AM EST) C Reactive Protein 0.51(H) < or = 0.50 mg/dL [facility] Blood Venous blood specimen / Unknown 05/14/2024 9:41 AM EST 05/14/2024 2:25 PM EST us Juli Mac MD LAB BLOOD ORDERABLES Final Result [facility] [address] [place] [phone] * (ABNORMAL) ANNI Screen,IFA, with Reflex to Titer and Pattern (05/14/2024 9:41 AM EST) Anti Nuclear Antibody Screen POSITIVE (A) NEGATIVE [facility] Comment:ANNI IFA is a first l ine screen for detecting thepresence of up to approximately 150 autoantibodies invarious autoimmune diseases. A positive ANNI IFA resultis suggestive of autoimmune disease and reflexes totiter and pattern. Further laboratory testing may beconsidered if clinically indicated.For additional information, please refer tohttp://education.Boostable/faq/IFV599(This link is being provided for informational/educational purposes only.) ANNI Titer 1:80(A) titer [facility] Comment:A low level ANNI tite r may be present in pre-clinicalautoimmune diseases and normal individuals. Reference Range <1:40 Negative 1:40-1:80 Low Antibody Level >1:80 Elevated Antibody Level ANNI Pattern (A) [facility] Comment:Nuclear, Few Nuclear Dots Abnormal Flag: ANuclear dots (1-6 in number per cell) pattern is seen inSjogren's syndrome, systemic lupus erythematosus (SLE),systemic sclerosis (scleroderma), polymyositis, andasymptomatic individuals.AC-7: Few Nuclear DotsInternational Consensus on ANNI Patterns(https://doi.org/10.1515/gjdi-1278-7847)THIS TEST WAS PERFORMED AT:[address] [place] [phone] KELLY MD ANNI TITER 2 (REF LAB) [facility] ANNI Pattern 2 [facility] ANNI TITER 3 [facility] ANNI PATTERN 3 [facility] Blood Venous blood specimen / Unknown 05/14/2024 9:41 AM EST 05/14/2024 2:25 PM EST us Juli Mac MD LAB BLOOD ORDERABLES Final Result Performing Organization Address [facility] Co de Phone Number [facility] [address] [place] [phone] * Testosterone, Total, males (Adult), IA (05/14/2024 9:41 AM EST) Testosterone, Total 399 250 - 1100 ng/dL [facility] Comment:For additional infor mation, please refer tohttp://education.[employer]orkShare/faq/EodwbZdbfdeiiisbkOCUASJZBI997(This link is being provided for informational/educational purposes only.)This test was developed and its analytical performancecharacteristics have been determined by [employer] [place], [place]. It hasnot been cleared or approved by the U.S. Food and DrugAdministration. This assay has been validated pursuantto the CLIA regulations and is used for clinicalpurposes.THIS TEST WAS PERFORMED AT:[employer] [place] [address]URZMKUOMUNDO ALVARADO MD,PHD Blood Venous blood specimen / Unknown 05/14/2024 9:41 AM EST 05/14/2024 2:25 PM EST us Juli Mac MD LAB BLOOD ORDERABLES Final Result Performing Organization Address [facility] Co de Phone Number [facility] [address] [place] [phone] documented in this encounter Visit Diagnoses Diagnosis Chronic cough- Primary Cough Other male erectile dysfunction Screen for STD (sexually transmitted disease) Screening examination for venereal disease Postablative hypothyroidism Other postablative hypothyroidism documented in this encounter Additional Health Concerns Assessment Noted Time PHQ-9 Depression Total Score: 6 09/05/19 24 10:03 AM EDT documented as of this encounter Care Teams Sales Planning Coordinator Relationship Specialty Start Date End Date Juli Mac MD [address] [place] [phone] PCP - General Internal Medicine 03/07/18 documented as of this encounter
--- OUTSIDE RECORDS SUMMARY | 2024-06-12 11:30 | XMS_ITS | Encounter Summary ---
Author Organization [employer] Address [address] [facility] 7 [place] [address] Care Team Providers Care Post Doctoral Fellow Name Role Phone Juli Mac MD Primary Care Provider [phone] Encounter Details Date Type Department Care Team ([facility] st Contact Info) Description 09/28/2023 Orders Only [facility] CHC MED & PEDS [address] [place] [address] Juli Mac MD [address] [place] [address] Other male erectile dysfunction Social History Tobacco Use Types Packs/Day Years [...] AM EDT documented as of this encounter Plan of Treatment Upcoming Encounters Date Type Department Care Team ([facility] st Contact Info) Description 06/25/2024 1:45 PM EST Office Visit [facility] MED & PEDS [address] [place] [address] Juli Mac MD [address] [place] [address] documented as of this encounter Visit Diagnoses Diagnosis Other male erectile dysfunction documented in this encounter Additional Health Concerns Assessment Noted Time PHQ-9 Depression Total Score: 6 09/05/19 24 10:03 AM EDT documented as of this encounter Care Teams Post Doctoral Fellow Relationship Specialty Start Date End Date Juli Mac MD [address] [place] [address] PCP - General Internal Medicine 03/07/18 documented as of this encounter
--- OUTSIDE RECORDS SUMMARY | 2024-06-12 11:30 | XMS_ITS | Encounter Summary ---
Author Organization [employer] Address [address] [facility] 7 [place] [address] Care Team Providers Care Metal Mold Dresser Name Role Phone Juli Mac MD Primary Care Provider [phone] Encounter Details Date Type Department Care Team ([facility] Contact Info) Description 09/07/2023 Orders Only [facility] CHC MED & PEDS [address] [place] [address] Juli Mac MD [address] [place] [address] Other male erectile dysfunction (Primary Dx); Postprocedural hypothyroidism Social History Tobacco Use Types Packs/Day [...] Description 06/25/2024 1:45 PM EST Office Visit [facility] MED & PEDS [address] [place] [address] Juli aMc MD [address] [place] [address] documented as of this encounter Procedures Procedure Name Priority Date/Time Associated Diagnosis Comments TESTOSTERONE, FREE (DIALYSIS) AND TOTAL,MS Routine 09/27/2023 2:56 PM EDT Postprocedural hypothyroidism Other male erectile dysfunction documented in this encounter Results * Testosterone, Free (Dialysis) And Total, MS (09/27/2023 2:56 PM EDT) Testosterone, Total 272 250 - 1100 ng/dL [facility] Comment:For additional infor mation, please refer tohttp://education.Opzi.com/faq/TddhxAjyhkczpxgbnWAJXPDARY649(This link is being provided for informational/educational purposes only.)This test was developed and its analytical performancecharacteristics have been determined by [employer] [place], [place]. It hasnot been cleared or approved by the U.S. Food and DrugAdministration. This assay has been validated pursuantto the CLIA regulations and is used for clinicalpurposes. Testosterone, Free 43.2 35.0 - 155.0 pg/mL [facility] Comment:This test was develo ped and its analytical performancecharacteristics have been determined by [employer] [place], [place]. It hasnot been cleared or approved by the U.S. Food and DrugAdministration. This assay has been validated pursuantto the CLIA regulations and is used for clinicalpurposes.THIS TEST WAS PERFORMED AT:[employer] [place] [address]XHUBPNTMUNDO ALVARADO MD,PHD Blood Venous blood specimen / Unknown 09/27/2023 2:56 PM EDT 09/27/2023 5:10 PM EDT Juli Mac MD LAB BLOOD ORDERABLES Final Result [facility] [address] [place] [phone] [phone] documented in this encounter Visit Diagnoses Diagnosis Other male erectile dysfunction- Primary Postprocedural hypothyroidism Postsurgical hypothyroidism documented in this encounter Additional Health Concerns Assessment Noted Time PHQ-9 Depression Total Score: 6 09/05/19 24 10:03 AM EDT documented as of this encounter Care Teams Metal Mold Dresser Relationship Specialty Start Date End Date Juli Mac MD [address] [place] [phone] PCP - General Internal Medicine 03/07/18 documented as of this encounter
--- OUTSIDE RECORDS SUMMARY | 2024-06-12 11:30 | XMS_ITS | Encounter Summary ---
Author Organization [employer] Address [address] [place] [address] [address] [place] [address] Care Team Providers Care Criminal Intelligence Analyst Name Role Phone Juli Mac MD Primary Care Provider [phone] Reason for Visit * Reason Comments Med Change Request Encounter Details Date Type Department Care Team ([facility] Contact Info) Description 06/04/2024 Refill [facility] [address] [place] [address] Juli Mac MD [address] [place] [address] Chronic cough Social History Tobacco Use Types Packs/Day Years [...] your housing situation today? I have tamiko sing 08/28/[address] you li [...] 1:45 PM EST Office Visit [facility] [address] [place] [address] Juli Mac MD [address] [place] [address] documented as of this encounter Visit Diagnoses Diagnosis Chronic cough Cough documented in this encounter Additional Health Concerns Assessment Noted Time PHQ-9 Depression Total Score: 6 09/05/19 24 10:03 AM EDT documented as of this encounter Care Teams Criminal Intelligence Analyst Relationship Specialty Start Date End Date Juli Mac MD [address] [place] [address] PCP - General Internal Medicine 03/07/18 documented as of this encounter
--- OUTSIDE RECORDS SUMMARY | 2024-06-12 11:30 | XMS_ITS | Clinical Summary ---
Author Organization [employer] Address [address] [place] [address] 7[address] [place] [address] Care Team Providers Care Record Clerk Salesperson Name Role Phone Juli Mac MD Primary Care Provider [phone] Allergies No known active allergies Medications cholecalciferol (Vitamin D-3) 50 MCG (2000 UT) capsuleIndication s:Low vitamin D level TAKE 1 CAPSULE BY MOUTH EVERY DAY 90 capsule 3 023 Active Additional Information Patient not taking.Reported on 02/06/2023 albuterol (ProAir HFA) 108 (90 Base) MCG/ACT inhaler inhale 2 puff by inhalation route every 4 to 6 hours as needed 18 g 3 023 Active cholecalciferol (Vitamin D-3) 25 MCG (1000 UT) tabletIndications :Chronic midline thoracic back pain Take 1 tablet (25 mcg) by mouth in the morning. 60 tablet 11 023 Active cholecalciferol (Vitamin D-3) 50 MCG (2000 UT) capsule 1 Capsule a day 30 capsule 11 024 Active tadalafil (Cialis) 5 MG tabletIndications :Other male erectile dysfunction Take 1 tablet (5 mg) by mouth Once per day. 12 tablet 1 024 Active Nystop [id number] UNIT/GM powderIndications :Intertrigo APPLY TO AFFECTED AREA TWICE A DAY 30 g 024 Active albuterol 108 (90 Base) MCG/ACT inhaler Inhale 2 puffs every 6 (six) hours if needed for wheezing. 18 g 11 024 2024 Active levothyroxine (Synthroid, Levoxyl) 137 MCG tabletIndications :Postprocedural hypothyroidism TAKE 1 TABLET BY MOUTH EVERY MORNING 90 tablet 1 Active cetirizine (ZyrTEC) 10 MG tablet Take 1 tablet (10 mg) by mouth Once per day. 30 tablet 11 024 2024 Active fluticasone-salme terol (Advair) 115-21 MCG/ACT inhalerIndication s:Chronic cough INHALE 2 PUFFS IN THE MORNING AND AT BEDTIME. RINSE MOUTH WITH WATER AFTER USE. DO NOT SWALLOW. 12 g 11 Active tadalafil (Cialis) 10 MG tabletIndications :Other male erectile dysfunction Take 0.5 tablets (5 mg) by mouth Once per day. To take 30 minutes prior to sexual encounter 10 tablet 11 024 2024 Active celecoxib (CeleBREX) 200 MG capsuleIndication s:Chronic midline thoracic back pain,Medial epicondylitis of right elbow TAKE 1 CAPSULE BY MOUTH TWICE A DAY 60 capsule 025 Active loratadine (Claritin) 10 MG tabletIndications :Chronic cough TAKE 1 TABLET (10 MG) BY MOUTH ONCE PER DAY. 90 tablet 1 025 2024 Active celecoxib (CeleBREX) 200 MG capsuleIndication s:Chronic midline thoracic back pain,Medial epicondylitis of right elbow TAKE 1 CAPSULE BY MOUTH TWICE A DAY 60 capsule 024 2024 Discontinued fluticasone-salme terol (Advair) 115-21 MCG/ACT inhalerIndication s:Chronic cough Inhale 2 puffs in the morning and at bedtime. Rinse mouth with water after use to reduce aftertaste and incidence of candidiasis. Do not swallow. 12 g 11 024 2023 Discontinued loratadine (Claritin) 10 MG tabletIndications :Chronic cough Take 1 tablet (10 mg) by mouth Once per day. 30 tablet 024 2024 Discontinued Active Problems Problem Noted Date Diagnosed Date Chronic back pain 08/23/2022 Hypothyroidism 07/20/2020 Moderate persistent asthma without complication 04/16/2018 Encounters Date Type Department Care Team Description 06/04/2024 Refill [facility] [address] [place] [address] Juli Mac MD Chronic cough 05/28/2024 Refill [facility] [address] [place] [address] Liudmila Hogue MD Chronic midline thoracic back pain; Medial epicondylitis of right elbow 05/13/2024 11:15 AM EST Office Visit [facility] [address] [place] [address] Juli Mac MD Chronic cough (Primary Dx); Other male erectile dysfunction; Screen for STD (sexually transmitted disease); Postablative hypothyroidism 05/13/2024 Refill [facility] [address] [place] [address] Juli Mac MD Chronic cough 05/13/2024 Travel 05/03/2024 Telephone [facility] [address] [place] [address] Juli Mac MD Results 05/03/[address] [facility] [address] [place] [phone] Alba Sánchez RN Results 05/01/2024 2:20 PM EST Office Visit [facility] [address] [place] [address] Meg Bernard FNP Cough present for greater than 3 weeks (Primary Dx); PND (post-nasal drip) 05/01/2024 Travel 05/01/[address] [facility] [address] [place] [address] Juli aMc MD Nurse Triage 04/28/2024 Refill [facility] [address] [place] [address] Juli Mac MD Chronic midline thoracic back pain; Medial epicondylitis of right elbow 04/22/2024 Refill [facility] [address] [place] [address] Juli Mac MD Postprocedural hypothyroidism 04/18/[address] [facility] [address] [place] [address] Juli Mac MD Postprocedural hypothyroidism 04/01/2024 3:30 PM EST Office Visit [facility] [address] [place] [address] Lionel Gonzalez MD Acute cough (Primary Dx) 04/01/2024 Travel 04/01/[address] [facility] [address] [place] [address] Juli Mac MD Walk-In 03/19/2024 Refill [facility] [address] [place], [place] [phone] uJli Mac MD 03/19/2024 Refill [facility] [address] [place], [place] [phone] Juli Mac MD Chronic midline thoracic back pain; Medial epicondylitis of right elbow from Last 3 Months Immunizations Name Administration Dates Next Due Hep A, Adult 04/12/2015,10/08/2014 Hep B, adult 02/25/2016 Influenza, IIV3, injectable 04/15/2024 MMR 07/22/2013 Tdap 04/15/2024,09/21/2013 Family History Medical History Relation Name Comments No Known Problems Father Asthma Mother Fibromyalgia Mother Hypertension Mother Lupus Mother Relation Name Status Comments Father Mother Social History Tobacco Use Types Packs/Day Years Used Date Smoking Tobacco: Never Passive Smoke Exposure: Never Smokeless Tobacco: Never Tobacco Cessation:Counseling Given: Not Answered Alcohol Use Standard Drinks/Week Comments Defer 0 [...] Orientation Straight 03/21/2022 10 :31 AM EDT Last Filed Vital Signs Vital Sign Reading [...] Mass Index 29.24 05/13/2024 11:24 AM EST Plan of Treatment Upcoming Encounters Date Type Department Care Team (Late st Contact Info) Description 06/25/2024 1:45 PM EST Office Visit [facility] [address] [place], [place] [phone] Juli Mac MD [address] [place], [place] [phone] Health Maintenance Due Date Last Done Comments Dental Prophylaxis 1980 Dental X-Ray: Bitewings 1980 Dental X-Ray: Full Mouth 1980 Pneumococcal Vaccine: Pediatrics (0 to 5 Years) and At-Risk Patients (6 to 64 Years) (1 of 2 - PCV) 1986 Alcohol/Substance Use Screening 1992 Family Planning (PISQ) 11/20/1995 Hepatitis B Vaccines (2 of 3 - 19+ 3-dose series) 03/24/2016 02/25/2016 Dental Oral Exam 08/15/2023 02/13/2023 COVID-19 Vaccine (3 - 2023- season) 2024 03/22/2021, 03/01/2021 SDOH Screening 08/27/2024 08/28/2023 Depression Screening 09/04/2024 09/05/2023, 09/05/19 24 Tobacco Screening 05/13/2025 05/13/2024 Lipid Panel 09/04/2028 09/05/2023, 06/21/2021 Zoster Vaccines (1 of 2) 2030 DTaP/Tdap/Td Vaccines (3 - Td or Tdap) 04/15/2034 04/15/2024, 09/21/2013 RSV Patients and Patients Aged 60 years or older (1 - 1-dose 75+ series) 11/20/2055 Hepatitis A Vaccines Aged Out 04/12/2015, 10/09/19 15 No longer eligible based on patient's age to complete this topic Hepatitis C Screening Completed 08/23/2022 , 06/21/2021, 03/20/2020, Additional history exists Influenza Vaccine Completed 04/15/2024, 04/15/2024 HIV Screening Completed 05/14/2024, 04/0 08/2022, 06/21/2021, Additional history exists HIB Vaccines Aged Out No longer eligi ble based on patient's age to complete this topic HPV Vaccines Aged Out No longer eligi ble based on patient's age to complete this topic IPV Vaccines Aged Out No longer eligi ble based on patient's age to complete this topic Meningococcal Vaccine Aged Out No tommy herve eligible based on patient's age to complete this topic RSV under 20 months Aged Out No longe r eligible based on patient's age to complete this topic Rotavirus Vaccines Aged Out No longer eligible based on patient's age to complete this topic Procedures Procedure Name Priority Date/Time Associated Diagnosis Comments CHLAMYDIA/N. GONORRHOEAE RNA, TMA, UROGENITAL Routine 05/14/2024 9:42 AM EST Screen for STD (sexually transmitted disease) SYPHILIS SCREEN Routine 05/14/2024 9:41 AM EST Screen for STD (sexually transmitted disease) TSH W/REFLEX TO FT4 Routine 05/14/2024 9 :41 AM EST Other male erectile dysfunction HIV 1/2 ANTIGEN/ANTIBODY, FOURTH GENERATION W/RFL Routine 05/14/2024 9:41 AM EST Screen for STD (sexually transmitted disease) SCL-70 ANTIBODY Routine 05/14/2024 9:41 AM EST Chronic cough SED RATE BY MODIFIED WESTERGREN Routine 05/14/2024 9:41 AM EST Chronic cough C-REACTIVE PROTEIN Routine 05/14/2024 9: 41 AM EST Chronic cough ANNI SCREEN, IFA, W/REFL TITER AND PATTERN Routine 05/14/2024 9:41 AM EST Chronic cough TESTOSTERONE, TOTAL, MALES (ADULT), IA Routine 05/14/2024 9:41 AM EST Other male erectile dysfunction XR CHEST 2 VIEWS Routine 05/01/2024 3:39 PM EST Cough present for greater than 3 weeks POCT RAPID STREP A Routine 04/01/2024 4: 26 PM EST Acute cough POCT RAPID COVID ANTIGEN Routine 04/01/2024 4:25 PM EST Acute cough LIPID PANEL, STANDARD Routine 09/05/2023 10:12 AM EDT Postablative hypothyroidism Annual physical exam PERIODIC ORAL EVALUATION - ESTABLISHED PATIENT Routine 02/13/2023 1:00 PM EDT HEPATITIS C AB W/REFL TO HCV RNA, QN, PCR Routine 08/23/2022 10:25 AM EDT Annual physical exam from Last 3 Months or Most Recently Relevant to Health Maintenance Results * Chlamydia/N. Gonorrhoeae RNA, TMA, Urogenitial (05/14/2024 9:42 AM EST) CT PCR NOT DETECTED Not Detect. [facility] Comment:A not detected test result [...] psychologicalconsequences. NG PCR NOT DETECTED Not Detect. [facility] Comment:A not detected test result [...] AM EST 05/14/2024 2:15 PM EST Narrative [facility] - 05/14/2024 6:56 PM EST Urine us Juli Mac MD LAB MICROBIOLOGY - GENERAL ORDERABLES Final Result Performing Organization Address [facility] Co de Phone Number [facility] [address] [place] [phone] * Syphilis Screen (05/14/2024 9:41 AM EST) Syphilis Screen Nonreactive Nonreactive [facility] Blood 05/14/2024 9:41 AM EST 05/14/2024 2:25 PM EST Juli Mac MD LAB BLOOD ORDERABLES Final Result Performing Organization Address [facility] Co de Phone Number [facility] [address] [place] [phone] * TSH W/Reflex to FT4 (05/14/2024 9:41 AM EST) TSH reflex Free T4 1.44 0.32 - 4.0 uIU/mL [facility] Blood Venous blood specimen / Unknown 05/14/2024 9:41 AM EST 05/14/2024 2:25 PM EST Juli Mac MD LAB BLOOD ORDERABLES Final Result Performing Organization Address [facility] Co de Phone Number [facility] [address] [place] [phone] * SCL-70 Antibody (05/14/2024 9:41 AM EST) SCL-70 Antibody <1.0 NEG <1.0 NEG AI [facility] Comment:THIS TEST WAS PERFOR MED AT:[employer] [place] [phone] KELLY MD Blood Venous blood specimen / Unknown 05/14/2024 9:41 AM EST 05/14/2024 2:25 PM EST us Juli Mac MD LAB BLOOD ORDERABLES Final Result Performing Organization Address [facility] Co de Phone Number [facility] [address] [place] [phone] * HIV-1/2 Antigen and Antibodies, Fourth Generation, with Reflexes (05/14/2024 9:41 AM EST) HIV AB/AG Nonreactive Nonreactive [facility] Comment:HIV-1 p24 Ag and/or HIV-1/HIV-2 Ab not detected.A test result that is nonreactive does not exclude thepossibility of exposure to or infection with HIV-1 and/orHIV-2. Nonreactive results in this assay for individualswith prior exposure to HIV-1 and/or HIV-2 may be due toantigen and antibody levels that are below the limit ofdetection of this assay.The [employer]pi HIV Ag/Ab Combo assay result andsupplemental assay results should be interpreted inconjunction with the patient's clinical presentation,history and other laboratory results. If the results areinconsistent with clinical evidence, additional testing issuggested to confirm the result. Blood Venous blood specimen / Unknown 05/14/2024 9:41 AM EST 05/14/2024 2:25 PM EST us Juli Mac MD LAB BLOOD ORDERABLES Final Result Performing Organization Address [facility]/ZIP Co de Phone Number [facility] [address] [place] [phone] * (ABNORMAL) Sed Rate by Modified Westergren (05/14/2024 9:41 AM EST) Erythrocyte Sedimentation Rate 23(H) 0 - 15 MM/HR [facility] Comment:Patients with polycy themia and many hemoglobin abnormalitiesmay have depressed sed rates whereas patients with anemiamay have elevated sed rates. Blood Venous blood specimen / Unknown 05/14/2024 9:41 AM EST 05/14/2024 2:25 PM EST us Juli Mac MD LAB BLOOD ORDERABLES Final Result Performing Organization Address City/[facility]/ZIP Co de Phone Number [facility] [address] [place] [phone] * (ABNORMAL) C-reactive Protein (05/14/2024 9:41 AM EST) Pathologist [facility] C Reactive Protein 0.51(H) < or = 0.50 mg/dL [facility] Blood Venous blood specimen / Unknown 05/14/2024 9:41 AM EST 05/14/2024 2:25 PM EST Juli Mac MD LAB BLOOD ORDERABLES Final Result Performing Organization Address [facility] Co de Phone Number [facility] [address] [place] [phone] * (ABNORMAL) ANNI Screen,IFA, with Reflex to Titer and Pattern (05/14/2024 9:41 AM EST) Anti Nuclear Antibody Screen POSITIVE (A) NEGATIVE [facility] Comment:ANNI IFA is a first l ine screen for detecting thepresence of up to approximately 150 autoantibodies invarious autoimmune diseases. A positive ANNI IFA resultis suggestive of autoimmune disease and reflexes totiter and pattern. Further laboratory testing may beconsidered if clinically indicated.For additional information, please refer tohttp://education.[employer]/faq/KTH208(This link is being provided for informational/educational purposes only.) ANNI Titer 1:80(A) titer [facility] Comment:A low level ANNI tite r may be present in pre-clinicalautoimmune diseases and normal individuals. Reference Range <1:40 Negative 1:40-1:80 Low Antibody Level >1:80 Elevated Antibody Level ANNI Pattern (A) [facility] Comment:Nuclear, Few Nuclear Dots Abnormal Flag: ANuclear dots (1-6 in number per cell) pattern is seen inSjogren's syndrome, systemic lupus erythematosus (SLE),systemic sclerosis (scleroderma), polymyositis, andasymptomatic individuals.AC-7: Few Nuclear DotsInternational Consensus on ANNI Patterns(https://doi.org/10.1515/rzja-2729-9912)THIS TEST WAS PERFORMED AT:[facility] [address] [phone] KELLY MD ANNI TITER 2 (REF LAB) [facility] ANNI Pattern 2 [facility] ANNI TITER 3 [facility] ANNI PATTERN 3 [facility] Blood Venous blood specimen / Unknown 05/14/2024 9:41 AM EST 05/14/2024 2:25 PM EST Juli Mac MD LAB BLOOD ORDERABLES Final Result [facility] [address] [place] [phone] * Testosterone, Total, males (Adult), IA (05/14/2024 9:41 AM EST) Testosterone, Total 399 250 - 1100 ng/dL [facility] Comment:For additional infor matrona, please refer tohttp://education.[employer]/faq/PprsfCjpmfgnbtavyUGQXVRJIX662(This link is being provided for informational/educational purposes only.)This test was developed and its analytical performancecharacteristics have been determined by [facility] [place], [place]. It hasnot been cleared or approved by the U.S. Food and DrugAdministration. This assay has been validated pursuantto the CLIA regulations and is used for clinicalpurposes.THIS TEST WAS PERFORMED AT:[facility]/F2G [id number] [place] [address]FXUKIPUMUNDO ALVARADO MD,PHD Blood Venous blood specimen / Unknown 05/14/2024 9:41 AM EST 05/14/2024 2:25 PM EST us Juli Mac MD LAB BLOOD ORDERABLES Final Result [facility] [address] [place] [phone] * XR Chest 2 Views (05/01/2024 3:39 PM EST) Anatomical Region Laterality Modality Chest Radiographic Mary ging 05/01/2024 3:39 PM EST Narrative 05/02/2024 7:23 AM EST ? [facility] ?[address] ?[place] [address] ?XRay Report ? Signed ? Patient: Rico,Kike ?MR#: [id number] ?? [id number] ? : 1980 ?Acct:[id number] ? Age/Sex: 43 / M ?ADM Date: 05/01/24 ? Loc: HO.XRAY ? Attending Dr: Meg Bernard [employer] COMM[employer]ICATION[employer] SERGEANT ? Ordering Physician: Meg Bernard NP ?? Date of Service: 05/01/24 ?? Procedure(s): XR chest 2V ?? Accession Number(s): [id number] ? cc: Meg Bernard [employer]GEANT ? EXAMINATION: ?? XR CHEST ? CLINICAL INFORMATION: ?? cough x 3 months ? COMPARISON: ?? X-ray dated October 04, 2017 ? TECHNIQUE: ?? 2 views of the chest were obtained. ? FINDINGS: ?? Submitted for interpretation on May 02, 2024. ? No consolidation, pleural effusion or pneumothorax. ?? Pulmonary reticular pattern. ?? Cardiomediastinal silhouette demonstrates normal size with a round ?? apex. Osseous structures are intact. ? XR/XR chest 2V ?? IMPRESSION: ?? No acute airspace disease. ? Electronically signed by: ??Juan Miguel MD ??05/02/2024 07:20 AM ?? EST RP ? Dictated By: ?Juan Mathews MD ? Signed By: ?<Electronically signed by Juan Spain MD in OV> ? 05/02/24 0720 ? DD/ 1539 ? TD/TT: 05/01/24 1548 ? Alloy Weigher: ? Procedure Note Melvin, Image - 12/12/[address] [address] XRay Report Signed Patient: Kike GómezMR#: [id number] : 1980Acct:[id number] Age/Sex: 43 / MADM Date: 05/01/24 Loc: HO.NATALIE Attending Dr: Meg Bernard [employer]GE[employer] Ordering Physician: Meg Bernard NP Date of Service: 05/01/24 Procedure(s): XR chest 2V Accession Number(s): [id number] cc: Meg Bernard [employer]GEANT EXAMINATION: XR CHEST CLINICAL INFORMATION: cough x 3 months COMPARISON: X-ray dated October 04, 2017 TECHNIQUE: 2 views of the chest were obtained. FINDINGS: Submitted for interpretation on May 02, 2024. No consolidation, pleural effusion or pneumothorax. Pulmonary reticular pattern. Cardiomediastinal silhouette demonstrates normal size with a round apex. Osseous structures are intact. XR/XR chest 2V IMPRESSION: No acute airspace disease. Electronically signed by: Juan Miguel MD 05/02/2024 07:20 AM EST Dictated By: Juan Mathews MD Signed By: <Electronically signed by Juan Spain MDin OV> 05/02/24 0720 DD/ 1539 TD/TT: 05/01/24 1548 Alloy Weigher: Meg Bernard STAFF RADIOLOGIST IMG XR PROCEDURES Edited Result - Final * POCT Rapid Strep A OSOM (04/01/2024 4:26 PM EST) Pathologist [facility] Rapid Strep A Screen Negative Negative, None Detected QC Media Lot # [id number] Lot# Expiration Date [id number] Swab 04/01/2024 4:26 PM EST Lionel Ceballos MD POINT OF CARE TEST ENTER/EDIT ORDERABLES Final Result * POCT Rapid Covid-19 BinaxNOW (04/01/2024 4:25 PM EST) Rapid COVID Ag Negative QC Media Lot # [id number] Lot# Expiration Date [id number] Swab 04/01/2024 4:25 PM EST Lionel Ceballos MD POINT OF CARE TEST ENTER/EDIT ORDERABLES Final Result * (ABNORMAL) Lipid Panel, Standard (09/05/2023 10:12 AM EDT) Triglycerides 59 <150 mg/dL [facility] Comment:Desirable Triglyceri de: less than 150 mg/dLBorderline High Triglyceride 150-199 mg/dLHigh Triglyceride: 200-499 mg/dLVery High Triglyceride: greater than or equal to 5OO mg/dL Cholesterol 188 <200 mg/dL [facility] Comment:Desirable Cholestero l: less than 200 mg/dLBorderline High Cholesterol: 200-239 mg/dLHigh Cholesterol: greater than 239 mg/dL LDL Cholesterol Calculated 109(H) <100 mg/dL [facility] Comment:Desirable LDL: less than 100 mg/dLNear Optimal/Above Optimal LDL: 110- 129 mg/dLBorderline High LDL: 130-159 mg/dLHigh LDL: 160-189 mg/dLVery High LDL: greater than or equal to 190 mg/dL HDL Cholesterol 68 >40 mg/dL [facility] Comment:Desirable HDL: great er than 40 mg/dL Note: This HDL assay may give artificially low results in patients with liver disease. Blood Venous blood specimen / Unknown 09/05/2023 10:12 AM EDT 09/05/2023 2:22 PM EDT us Juli Mac MD LAB BLOOD ORDERABLES Final Result [facility] [address] [place] [phone] * Hepatitis C Antibody with Reflex to HCV, RNA, Quantitative, Real-Time PCR (08/23/2022 10:25 AM EDT) Hepatitis C Antibody NON-REACT LAUAR NON-REACT LAURA [employer] [facility] Index <0.02 <1.00 [facility] Comment: HCV antibody was non-reactive. There is no laboratory evidence of HCV infection. In most cases, no further action is required. However, if recent HCV exposure is suspected, a test for HCV RNA (test code 83111) is suggested. For additional information please refer to http://education.[employer]/faq/UHE34r0 (This link is being provided for informational/ educational purposes only.) Blood Venous blood specimen / Unknown 08/23/2022 10:25 AM EDT 08/23/2022 10:27 AM EDT Juli Mac MD LAB BLOOD ORDERABLES Final Result [facility] [address], [place] [phone] [employer] [place] [employer] [address] [place] [phone] from Last 3 Months or Most Recently Relevant to Health Maintenance Insurance [facility] Care Teams Record Clerk Salesperson Relationship Specialty Start Date End Date Juli Mac MD [address] [place] [phone] PCP - General Internal Medicine 03/07/18
--- OUTSIDE RECORDS SUMMARY | 2024-06-12 11:30 | XMS_ITS | Encounter Summary ---
Author Organization [employer] Address [address] [place] [address] Care Team Providers Care Cocoa Room Operator Name Role Phone Juli Mac MD Primary Care Provider +1- [phone] Reason for Visit * Reason Onset Date Comments Med Refill 04/22/2024 Encounter Details Date Type Department Care Team ([facility] st Contact Info) Description 04/22/2024 Refill [facility] MED & PEDS [address] [place] [address] Juli Mac MD 505 [place] [address] Postprocedural hypothyroidism Social History Tobacco Use Types [...] Description 06/25/2024 1:45 PM EST Office Visit [facility] CHC MED & PEDS [address] [place] [address] Juli Mac MD 505 [place] [address] documented as of this encounter Visit Diagnoses Diagnosis Postprocedural hypothyroidism Postsurgical hypothyroidism documented in this encounter Additional Health Concerns Assessment Noted Time PHQ-9 Depression Total Score: 6 09/05/19 24 10:03 AM EDT documented as of this encounter Care Teams Cocoa Room Operator Relationship Specialty Start Date End Date Juli Mac MD [address] [place] [address] PCP - General Internal Medicine 03/07/18 documented as of this encounter
--- OUTSIDE RECORDS SUMMARY | 2024-06-12 11:30 | XMS_ITS | Encounter Summary ---
Author Organization [employer] Address [address] [facility] 7t [place] [address] Care Team Providers Care Home Health Manager Name Role Phone Juli Mac MD Primary Care Provider +1 [phone] Encounter Details Date Type Department Care Team (Latest Contact Info) Description 05/13/2024 Travel Social History Tobacco Use Types Packs/Day Years [...] Description 06/25/2024 1:45 PM EST Office Visit [facility] MED & PEDS 505 [place] [address] Juli Mac MD 505 [place] [address] documented as of this encounter Visit Diagnoses Not on filedocumented in this encounter Additional Health Concerns Assessment Noted Time PHQ-9 Depression Total Score: 6 09/05/19 24 10:03 AM EDT documented as of this encounter Care Teams Home Health Manager Relationship Specialty Start Date End Date Juli Mac MD [address] [place] [address] PCP - General Internal Medicine 03/07/18 documented as of this encounter
--- OUTSIDE RECORDS SUMMARY | 2024-06-12 11:30 | XMS_ITS | Encounter Summary ---
Author Organization [employer] Address [address] [place] [address] Care Team Providers Care Furniture Repair Technician Name Role Phone Juli Mac MD Primary Care Provider [phone]- [phone] Reason for Visit * Reason Onset Date Comments Med Refill 01/08/2024 Encounter Details Date Type Department Care Team ([facility] st Contact Info) Description 01/08/2024 Refill [facility] MED & PEDS [address] [place] [address] Juli Mac MD 505 [place] [address] Social History Tobacco Use Types Packs/Day Years [...] 06/25/2024 1:45 PM EST Office Visit [facility] MED & PEDS [address] [place] [address] Juli Mac MD [address] [place] [address] documented as of this encounter Visit Diagnoses Not on filedocumented in this encounter Additional Health Concerns Assessment Noted Time PHQ-9 Depression Total Score: 6 09/05/19 24 10:03 AM EDT documented as of this encounter Care Teams Furniture Repair Technician Relationship Specialty Start Date End Date Juli Mac MD [address] [place] [address] PCP - General Internal Medicine 03/07/18 documented as of this encounter
--- OUTSIDE RECORDS SUMMARY | 2024-06-12 11:30 | XMS_ITS | Encounter Summary ---
Author Organization [employer] Address [address] [facility] [address], [place] [address] Care Team Providers Care Biblical Studies Professor Name Role Phone Juli Mac MD Primary Care Provider +1- [phone] Reason for Visit * Reason Onset Date Comments Results 09/12/2023 Encounter Details Date Type Department Care Team ([facility] st Contact Info) Description 09/12/2023 Telephone [facility] MEDICINE [address] [place] [address] Juli Mac MD [address] [place] [address] Results Social History Tobacco Use Types Packs/Day Years [...] AM EDT documented as of this encounter Miscellaneous Notes * Telephone Encounter - Yumiko Dickerson RN - 09/26/2023 4:11 PM EDT Placed call to [facility] lab regarding results. Lab did not have results yet and lab states only a coupleof techs in lab are able to test. Pt did have test done on 10/15/23, but unable to determine timeframe for results. * Telephone Encounter - Anca Recio - 09/25/2023 1:33 PM EDT Tc from pt requesting results on semen analysis done at [facility]. Pt is also having difficulty getting tadalafil (Cialis) 5 MG tablet from pharmacy. Pt is due for refill due to pharmacy only giving 12 tablets but was advised by pharmacy insurance will not cover until the . Please contact pt at [phone] * Telephone Encounter - Wing Jennifer RN - 09/14/2023 3:40 PM EDT Tc to pt regarding semen lab cup. Said I would [facility] at [phone]. Noni at [facility] said the semen analysis can be collected in a urine cup based on their instructions and they should be able to provide the cups at pt's appt tomorrow. Relayed information to pt as well as active testosterone lab that pt needs to repeat due to low levels of testosterone at last lab draw. Pt verbalized understanding and agreement with plan. * Telephone Encounter - Zora Burleson - 09/14/2023 3:00 PM EDT Tc from pt returning call and requesting a call back. * Telephone Encounter - Wing Jennifer RN - 09/13/2023 12:17 PM EDT Tc to pt regarding message below, unable to reach pt. Left message for pt to call back. * Telephone Encounter - Samuel Ryder - 09/12/2023 10:49 AM EDT Tc from patient request a call back with the lab results and what are the next steps also the patient is requesting a cup for the semen analysis documented in this encounter Plan of Treatment Upcoming Encounters Date Type Department Care Team (Late st Contact Info) Description 06/25/2024 1:45 PM EST Office Visit [facility] MED & PEDS [address] [place] [address] Juli Mac MD [address] [place] [address] documented as of this encounter Visit Diagnoses Not on filedocumented in this encounter Additional Health Concerns Assessment Noted Time PHQ-9 Depression Total Score: 6 09/05/19 24 10:03 AM EDT documented as of this encounter Care Teams Biblical Studies Professor Relationship Specialty Start Date End Date Juli Mac MD [address] [place] [address] PCP - General Internal Medicine 03/07/18 documented as of this encounter
--- OUTSIDE RECORDS SUMMARY | 2024-06-12 11:30 | XMS_ITS | Encounter Summary ---
Author Organization [employer] Address [address] [place] [address] 7t [place] [address] Care Team Providers Care Sewing Trimmer Name Role Phone Juli Mac MD Primary Care Provider [phone] [phone] Reason for Visit * Reason Comments Med Refill Encounter Details Date Type Department Care Team (Late st Contact Info) Description 05/28/2024 Refill [facility] CHC MED & PEDS [address] [place] [address] Liudmila Hogue MD [address] [place] [address] Chronic midline thoracic back pain; Medial epicondylitis of right elbow Social History Tobacco Use Types Packs/Day Years [...] your housing situation today? I have tamiko kathrin 08/28/[address] you li [...] Description 06/25/2024 1:45 PM EST Office Visit [facility] CHC MED & PEDS [address] [place] [address] Juli Mac MD [address] [place] [address] documented as of this encounter Visit Diagnoses Diagnosis Chronic midline thoracic back pain Medial epicondylitis of right elbow documented in this encounter Additional Health Concerns Assessment Noted Time PHQ-9 Depression Total Score: 6 09/05/19 24 10:03 AM EDT documented as of this encounter Care Teams Sewing Trimmer Relationship Specialty Start Date End Date Juli Mac MD [address] [place] [address] PCP - General Internal Medicine 03/07/18 documented as of this encounter
--- OUTSIDE RECORDS SUMMARY | 2024-06-12 11:30 | XMS_ITS | Clinical Summary ---
Author Organization [facility] ity Address [address] [place] [address] Care Team Providers Care Snow Groomer Name Role Phone Unavailable Primary Care Provider Unavailabl e Social History Tobacco Use Types Packs/Day Years Used Date Smoking Tobacco: Never Assessed Sex and Gender Information Value Date Recorded Sex Assigned at Not on file Gender Identity Not on file Sexual Orientation Not on file Plan of Treatment Health Maintenance Due Date Last Done Comments DTaP,Tdap,and Td Vaccines (1 - Tdap) 11/20/1999 Hepatitis B Vaccines (1 of 3 - 19+ 3-dose series) 11/20/1999 COVID-19 Vaccine (2023-2 5 season) 2024 Influenza Vaccine (#1) 2024 HIB Vaccines Aged Out No longer eligi ble based on patient's age to complete this topic HPV Vaccines Aged Out No longer eligi ble based on patient's age to complete this topic Hepatitis A Vaccines Aged Out No long er eligible based on patient's age to complete this topic IPV Vaccines Aged Out No longer eligi ble based on patient's age to complete this topic MMR Vaccines Aged Out No longer eligi ble based on patient's age to complete this topic Meningococcal ACWY Vaccine Aged Out N o longer eligible based on patient's age to complete this topic Pneumococcal Vaccine: Pediat rics (0 to 5 Years) and At-Risk Patients (6 to 64 Years) Aged Out No longer eligible b ased on patient's age to complete this topic RSV Immunization Patients Un michelle 20 months Aged Out No longer eligible b ased on patient's age to complete this topic Varicella Vaccines Aged Out No longer eligible based on patient's age to complete this topic
--- OUTSIDE RECORDS SUMMARY | 2024-06-12 11:30 | XMS_ITS | Encounter Summary ---
Author Organization [employer] Address [address] [place] [address] [facility] [place] [address] Care Team Providers Care Dairy Associate Name Role Phone Juli Mac MD Primary Care Provider [phone]- [phone] Reason for Visit * Reason Comments Med Change Request Encounter Details Date Type Department Care Team ([facility] Contact Info) Description 05/13/2024 Refill C [facility] MED & PEDS [address] [place] [address] Juli Mac MD [address] [place] [address] Chronic cough Social History Tobacco Use Types [...] Description 06/25/2024 1:45 PM EST Office Visit [facility] MED & PEDS [address] [place] [address] Juli Mac MD [address] [place] [address] documented as of this encounter Visit Diagnoses Diagnosis Chronic cough Cough documented in this encounter Additional Health Concerns Assessment Noted Time PHQ-9 Depression Total Score: 6 09/05/19 24 10:03 AM EDT documented as of this encounter Care Teams Dairy Associate Relationship Specialty Start Date End Date Juli Mac MD [address] [place] [address] PCP - General Internal Medicine 03/07/18 documented as of this encounter
--- OUTSIDE RECORDS SUMMARY | 2024-06-12 11:30 | XMS_ITS | Encounter Summary ---
Author Organization [facility] Address [address] [place] [address] Care Team Providers Care Crib Pad Maker Name Role Phone Juli Mac MD Primary Care Provider +1- [phone] Encounter Details Date Type Department Care Team (Late Contact Info) Description 02/10/2023 Orders Only [facility] MED & PEDS [address] [place] [address] Juli Mca MD 505 [place] [address] Chronic midline thoracic back pain (Primary Dx) Social History Tobacco Use Types Packs/Day Years Used Date Smoking Tobacco: Never Smokeless Tobacco: Never Depression Answer Date Recorded Patient Health Questionnaire-9 Score 0 08/23/2022 Depression Answer Date Recorded Patient Health Questionnaire-2 Score 0 08/23/2022 Sex and Gender Information Value Date Recorded Sex Assigned at Male 03/21/2022 10:31 AM EDT Legal Sex Male 10:31 AM EDT Gender Identity Male 03/21/2022 10:31 AM EDT Sexual Orientation Straight 03/21/2022 10 :31 AM EDT documented as of this encounter Plan of Treatment Upcoming Encounters Date Type Department Care Team (Late Contact Info) Description 06/25/2024 1:45 PM EST Office Visit [facility] MED & PEDS [address] [place] [address] Juli Mac MD [address] [place], [place] [address] documented as of this encounter Visit Diagnoses Diagnosis Chronic midline thoracic back pain- Primary documented in this encounter Additional Health Concerns Assessment Noted Time PHQ-9 Depression Total Score: 0 08/24/19 23 9:52 AM EDT documented as of this encounter Care Teams Crib Pad Maker Relationship Specialty Start Date End Date Juli Mac MD [address] [place] [address] PCP - General Internal Medicine 03/07/18 documented as of this encounter
== END 2024-06-12 11:06 | disposition home or self-care (01) ==
PROVIDERS: PCP Internal Medicine; Visit Provider Nurse Practitioner Family
DX: J45.909 Unspecified asthma, uncomplicated (principal); R05.9 Cough, unspecified; R93.89 Abnormal findings on diagnostic imaging of other specified body structures; R76.8 Other specified abnormal immunological findings in serum
CPT/HCPCS: 99204

== ENCOUNTER → 2024-06-26 09:43 | Outpatient (BNV) | payer BC, SELFPAY | PROVIDERS: PCP Internal Medicine; Visit Provider Radiology Diagnostic Radiology | DX: R05.3 Chronic cough (principal) | CPT/HCPCS: 71250 ==

== ENCOUNTER 2024-07-18 15:29 | Outpatient (REF) | payer BC, SELFPAY ==
--- OUTSIDE RECORDS SUMMARY | 2024-06-26 10:00 | XMS_ITS | Encounter Summary ---
Author Organization [facility] Address [address] [place] [address] Care Team Providers Care Wirer Passenger Car Name Role Phone Juli Mac MD Primary Care Provider +1- [phone] Encounter Details Date Type Department Care Team (Late Contact Info) Description 02/10/2023 Orders Only [facility] MED & PEDS [address] [place] [address] Juli Mac MD [address] [place] [address] Chronic midline thoracic back pain (Primary Dx) [...] Department Care Team (Late Contact Info) Description 09/05/2024 2:00 PM EDT Office Visit [facility] MED & PEDS [address] [place] [address] Juli Mac MD [address] [place] [address] documented as of this encounter Visit Diagnoses Diagnosis Chronic midline thoracic back pain- Primary documented in this encounter Additional Health Concerns Assessment Noted Time PHQ-9 Depression Total Score: 0 08/24/19 23 9:52 AM EDT documented as of this encounter Care Teams Wirer Passenger Car Relationship Specialty Start Date End Date Juli Mac MD [address] [place] [address] PCP - General Internal Medicine 03/07/18 documented as of this encounter
--- OUTSIDE RECORDS SUMMARY | 2024-06-26 10:00 | XMS_ITS | Encounter Summary ---
Author Organization [employer] Address [address] [place] [address] [facility] [place] [address] Care Team Providers Care Pediatric Psychologist Name Role Phone Juli Mac MD Primary Care Provider +1 [phone] Reason for Visit * Reason Comments Med Change Request Encounter Details Date Type Department Care Team ([facility] Contact Info) Description 06/04/2024 Refill [facility] MED & PEDS [address] [place] [address] Juli Mac MD [address] [place] [address] Chronic cough Social History Tobacco Use Types [...] Care Team (Late st Contact Info) Description 09/05/2024 2:00 PM EDT Office Visit [facility] MED & PEDS [address] [place] [address] Juli Mac MD [address] [place] [address] documented as of this encounter Visit Diagnoses Diagnosis Chronic cough Cough documented in this encounter Additional Health Concerns Assessment Noted Time PHQ-9 Depression Total Score: 6 09/05/19 24 10:03 AM EDT documented as of this encounter Care Teams Pediatric Psychologist Relationship Specialty Start Date End Date Juli Mac MD [address] [place] [address] PCP - General Internal Medicine 03/07/18 documented as of this encounter
--- OUTSIDE RECORDS SUMMARY | 2024-06-26 10:00 | XMS_ITS | Encounter Summary ---
Author Organization [employer] Address [address] [place] [address] 7 [place] [address] Care Team Providers Care Furniture Delivery Driver Name Role Phone Juli Mac MD Primary Care Provider +1 [phone] Reason for Visit * Reason Comments Med Refill Encounter Details Date Type Department Care Team (Late st Contact Info) Description 05/28/2024 Refill [facility] CHC MED & PEDS [address] [place] [address] Liudmila Hogue MD [address] [place] [address] Chronic midline thoracic back pain; Medial epicondylitis [...] Description 09/05/2024 2:00 PM EDT Office Visit [facility] MED & PEDS [address] [place] [address] Juli Mac MD [address] [place] [address] documented as of this encounter Visit Diagnoses Diagnosis Chronic midline thoracic back pain Medial epicondylitis of right elbow documented in this encounter Additional Health Concerns Assessment Noted Time PHQ-9 Depression Total Score: 6 09/05/19 24 10:03 AM EDT documented as of this encounter Care Teams Furniture Delivery Driver Relationship Specialty Start Date End Date Juli Mac MD [address] [place] [address] PCP - General Internal Medicine 03/07/18 documented as of this encounter
--- OUTSIDE RECORDS SUMMARY | 2024-06-26 10:00 | XMS_ITS | Clinical Summary ---
Author Organization [facility]y Address [address] [place] [address] Care Team Providers Care Silo Operator Name Role Phone Unavailable Primary Care Provider [...]
--- OUTSIDE RECORDS SUMMARY | 2024-06-26 10:00 | XMS_ITS | Encounter Summary ---
Author Organization [employer] Address [address] [place] [address] Care Team Providers Care K 12 Principal Name Role Phone Juli Mac MD Primary Care Provider +1- [phone] Reason for Visit * Reason Comments Follow-up Chronic cough Encounter Details Date Type Department Care Team ([facility] Contact Info) Description 06/25/2024 1:45 PM EST Office Visit [facility] CHC MED & PEDS [address] [place] [address] Juli Mac MD [address] [place] [address] Chronic cough (Primary Dx); Elevated BP without diagnosis of hypertension Social History Tobacco Use Types Packs/Day Years [...] Sign Reading Time Taken Comments Blood Pressure 139/89 06/25/2024 2:16 PM EST Pulse 69 06/25/2024 2:16 PM EST Temperature 36.3 ??C (97.3 ??F) 06/25/2024 1:52 PM ES T Respiratory Rate 16 06/25/2024 1:52 PM EST Oxygen Saturation 98% 06/25/2024 1:52 PM EST Inhaled Oxygen Concentration - - Weight 95.3 kg (210 lb) 06/25/2024 1:52 PM EST Height 175.3 cm (5' 9 ) 06/25/2024 1:52 PM EST Body Mass Index 31.01 06/25/2024 1:52 PM EST documented in this encounter Progress Notes * Juli Mac MD - 06/25/2024 1:45 PM EST Subjective Patient ID: Kike Gómez is a 43 y.o. male who presents for Follow-up (Chronic cough ). HPI Here for follow-up. Was evaluated by pulmonology on June 12, 2024. Chest x- ray suggestive of ILD. Scheduled to get a CT scan and also a PFT. Advised to use Advair and the treatment with prednisonewas sent to his pharmacy. Patient was also referred to rheumatology. Doing better on the prednisone taper. No fever or other constitutional symptoms. Patient reports that he is able to run about 20 minutes on the current treatment. Patient Active Problem List Diagnosis Chronic back [...] if needed for wheezing. 18 g 11 celecoxib (CeleBREX) 200 MG capsule TAKE 1 [...] 1 Capsule a day 30 capsule 11 fluticasone-salmeterol (Advair) 115-21 MCG/ACT inhaler INHALE 2 PUFFS IN THE MORNING AND AT BEDTIME. RINSE MOUTH WITH WATER AFTER USE. DO NOT SWALLOW. 12 g 11 levothyroxine (Synthroid, Levoxyl) 137 MCG tablet TAKE 1 TABLET BY MOUTH EVERY MORNING 90 tablet 1 loratadine (Claritin) 10 MG tablet TAKE 1 TABLET (10 MG) BY MOUTH ONCE PER DAY. 90 tablet 1 Nystop 543392 UNIT/GM powder APPLY TO AFFECTED AREA TWICE A DAY 30 g 0 tadalafil (Cialis) 10 MG tablet Take 0.5 tablets (5 mg) by mouth Once per day. To take 30 minutes prior to sexual encounter 10 tablet 11 tadalafil (Cialis) 5 MG tablet Take 1 tablet (5 mg) by mouth Once per day. 12 tablet 1 No current facility-administered medications on file prior to visit. No Known Allergies Review of Systems Constitutional: Negative for appetite change, chills and diaphoresis. Eyes: Negative for pain, redness and itching. Respiratory: Negative for cough, choking and shortness of breath. Cardiovascular: Negative for leg swelling. Gastrointestinal: Negative for anal bleeding, blood in stool and constipation. Musculoskeletal: Negative for back pain, gait problem and joint swelling. Skin: Negative for rash. Objective BP (!) 149/84 (BP Location: Right arm, Patient Position: Sitting, BP Cuff Size: Large adult) Pulse 68 Temp 97.3 ??F (36.3 ??C) (Oral) Resp 16 Ht 5' 9 (1.753 m) Wt 210 lb (95.3 kg) SpO2 98% BMI 31.01 kg/m?? Physical Exam Constitutional: General: He is not in acute distress. Appearance: Normal appearance. He is not ill-appearing, toxic-appearing or diaphoretic. Cardiovascular: Rate and Rhythm: Normal rate. Pulmonary: Effort: Pulmonary effort is normal. Breath sounds: No wheezing or rhonchi. Neurological: Mental Status: He is alert. Assessment/Plan Diagnoses and all orders for this visit: Chronic cough Comments: Possible ILD Workup as recommended Keep the follow-up with me in August for the annual physical Elevated BP without diagnosis of hypertension - Blood Pressure kit; Check the blood pressure 3 times a week Repeat BP was 139/89. Patient was advised to check his blood pressure 3 times a week and to keep the log for the next visit. He is to follow-up for his annual physical in August as scheduled. documented in this encounter Plan of Treatment Upcoming Encounters Date Type Department Care Team ([facility] st Contact Info) Description 09/05/2024 2:00 PM EDT Office Visit [facility] CHC MED & PEDS [address] [place] [address] Juli Mac MD [address] [place] [address] documented as of this encounter Visit Diagnoses Diagnosis Chronic cough- Primary Cough Elevated BP without diagnosis of hypertension documented in this encounter Additional Health Concerns Assessment Noted Time PHQ-9 Depression Total Score: 6 09/05/19 24 10:03 AM EDT documented as of this encounter Care Teams K 12 Principal Relationship Specialty Start Date End Date Juli Mac MD [address] [place] [address] PCP - General Internal Medicine 03/07/18 documented as of this encounter
--- OUTSIDE RECORDS SUMMARY | 2024-06-26 10:01 | XMS_ITS | Encounter Summary ---
Author Organization [employer] Address [address] [facility] 7 [place] [address] Care Team Providers Care Seal Extrusion Operator Name Role Phone Juli Mac MD Primary Care Provider +1 [phone] Encounter Details Date Type Department Care Team ([facility] st Contact Info) Description 09/28/2023 Orders Only [facility] CHC MED & PEDS [address] [place] [address] Juli Mac MD [address] [place] [address] Other male erectile dysfunction Social History Tobacco [...] Upcoming Encounters Date Type Department Care Team ([facility] st Contact Info) Description 09/05/2024 2:00 PM EDT Office Visit [facility] MED & PEDS [address] [place] [address] Juli Mac MD [address] [place] [address] documented as of this encounter Visit Diagnoses Diagnosis Other male erectile dysfunction documented in this encounter Additional Health Concerns Assessment Noted Time PHQ-9 Depression Total Score: 6 09/05/19 24 10:03 AM EDT documented as of this encounter Care Teams Seal Extrusion Operator Relationship Specialty Start Date End Date Juli Mac MD [address] [place] [address] PCP - General Internal Medicine 03/07/18 documented as of this encounter
--- OUTSIDE RECORDS SUMMARY | 2024-06-26 10:01 | XMS_ITS | Clinical Summary ---
Author Organization [employer] Address [address] [place] [address] 7[address] [place] [address] Care Team Providers Care Fios Line Installer Name Role Phone Juil Mac MD Primary Care Provider [phone]- [phone] Allergies No known active allergies Medications cholecalciferol [...] day. 12 tablet 1 024 Active Nystop 620610 UNIT/GM powderIndications :Intertrigo APPLY TO AFFECTED AREA TWICE A DAY 30 g 024 Active albuterol 108 (90 Base) MCG/ACT inhaler Inhale 2 puffs every 6 (six) hours if needed for wheezing. 18 g 11 024 2024 Active levothyroxine (Synthroid, Levoxyl) 137 MCG tabletIndications :Postprocedural hypothyroidism TAKE 1 TABLET BY MOUTH EVERY MORNING 90 tablet 1 024 Active cetirizine (ZyrTEC) 10 MG tablet Take 1 tablet (10 mg) by mouth Once per day. 30 tablet 11 024 2024 Active fluticasone-salme terol (Advair) 115-21 MCG/ACT inhalerIndication s:Chronic cough INHALE 2 PUFFS IN THE MORNING AND AT BEDTIME. RINSE MOUTH WITH WATER AFTER USE. DO NOT SWALLOW. 12 g 11 024 Active tadalafil (Cialis) 10 MG tabletIndications :Other [...] DAY. 90 tablet 1 025 2024 Active Blood Pressure kitIndications:El evated BP without diagnosis of hypertension Check the blood pressure 3 times a week 1 kit 025 Active celecoxib (CeleBREX) 200 MG capsuleIndication s:Chronic midline thoracic back pain,Medial epicondylitis of right elbow TAKE 1 CAPSULE BY MOUTH TWICE A DAY 60 capsule 024 2024 Discontinued loratadine (Claritin) 10 MG tabletIndications :Chronic cough Take 1 tablet (10 mg) by mouth Once per day. 30 tablet 024 2024 Discontinued Active Problems Problem Noted Date Diagnosed Date Chronic back pain 08/23/2022 Hypothyroidism 07/20/2020 Moderate persistent asthma without complication 04/16/2018 Encounters Date Type Department Care Team Description 06/25/2024 1:45 PM EST Office Visit [facility] [address] [place] [address] Juli Mac MD Chronic cough (Primary Dx); Elevated BP without diagnosis of hypertension 06/25/2024 Travel 06/04/2024 Refill [facility] [address] [place] [address] Juli Mac MD Chronic cough 05/28/2024 Refill [facility] [address] [place] [address] Liudmila Hogue MD Chronic midline thoracic back pain; Medial epicondylitis of right elbow 05/13/2024 11:15 AM EST Office Visit [facility] [address] [place] [address] Juli Mac MD Chronic cough (Primary Dx); Other male erectile dysfunction; Screen for STD (sexually transmitted disease); Postablative hypothyroidism 05/13/2024 Refill [facility] [address] [place] [address] Juli Mac MD Chronic cough 05/13/2024 Travel 05/03/2024 Telephone [facility] [address] [place] [address] Juli Mac MD Results 05/03/2024 Telephone [facility] [address] [place] [phone] Alba Sánchez, SILAS Results 05/01/2024 2:20 PM EST Office Visit [facility] [address] [place] [address] Meg Bernard FNP Cough present for greater than 3 weeks (Primary Dx); PND (post-nasal drip) 05/01/2024 Travel 05/01/2024 Telephone [facility] [address] [place] [address] Juli Mac MD Nurse Triage 04/28/2024 Refill [facility] [address] [place] [address] Juli Mac MD Chronic midline thoracic back pain; Medial epicondylitis of right elbow 04/22/2024 Refill [facility] [address] [place] [address] Juli Mac MD Postprocedural hypothyroidism 04/18/2024 Refill [facility] [address] [facility], [place] [phone] Juli Mac MD Postprocedural hypothyroidism 04/01/2024 3:30 PM EST Office Visit [facility] [address] [place] [address] Lionel Gonzalez MD Acute cough (Primary Dx) 04/01/2024 Travel 04/01/2024 Telephone [facility] [address] [place] [address] Juli Mac MD Walk-In from Last 3 Months Immunizations Name Administration [...] Mass Index 31.01 06/25/2024 1:52 PM EST Plan of Treatment Upcoming Encounters Date Type Department Care Team (Late st Contact Info) Description 09/05/2024 2:00 PM EDT Office Visit [facility] [address] [place] [address] Juli Mca MD [address] [place] [address] Health Maintenance Due Date Last Done Comments Dental Prophylaxis 1980 Dental X-Ray: Bitewings 1980 Dental X-Ray: Full Mouth 1980 Alcohol/Substance Use Screening 1992 Family Planning (PISQ) 11/20/1995 Pneumococcal Vaccine: Pediatrics (0 to 5 Years) and At-Risk Patients (6 to 49) Years) (1 of 2 - PCV) 11/20/1999 Hepatitis B Vaccines (2 of 3 - 19+ 3-dose series) 03/24/2016 02/25/2016 Dental Oral Exam 08/15/2023 02/13/2023 COVID-19 Vaccine ( - season) 2024 03/22/2021, 03/01/2021 SDOH Screening 08/27/2024 [...] Completed 04/15/2024, 04/15/2024 HIV Screening Completed 05/14/2024, 08/2022, 06/21/2021, Additional history exists HIB Vaccines [...] EST) CT PCR NOT DETECTED Not Detect. [facility] Comment:A not detected test result does [...] psychologicalconsequences. NG PCR NOT DETECTED Not Detect. [facility] Comment:A not detected test result does [...] AM EST 05/14/2024 2:15 PM EST Narrative [facility] - 05/14/2024 6:56 PM EST Urine us Juli Mac MD LAB MICROBIOLOGY - GENERAL ORDERABLES Final Result [facility] [address] [place] [address] [phone] * Syphilis Screen (05/14/2024 9:41 AM EST) Syphilis Screen Nonreactive Nonreactive [facility] Blood 05/14/2024 9:41 AM EST 05/14/2024 2:25 PM EST Juli Mac MD LAB BLOOD ORDERABLES Final Result Performing Organization Address [facility] Co de Phone Number [facility] [address] [place] [phone] * TSH W/Reflex to FT4 (05/14/2024 9:41 AM EST) TSH reflex Free T4 1.44 0.32 - 4.0 uIU/mL [facility] Blood Venous blood specimen / Unknown 05/14/2024 9:41 AM EST 05/14/2024 2:25 PM EST us Juli Mac MD LAB BLOOD ORDERABLES Final Result Performing Organization Address [facility] de Phone Number [facility] [address] [place] [phone] * SCL-70 Antibody (05/14/2024 9:41 AM EST) Pathologist [facility] SCL-70 Antibody <1.0 NEG <1.0 NEG AI [facility] Comment:THIS TEST WAS PERFOR MED AT:[employer] [address] [id number] KELLY MD Blood Venous blood specimen / Unknown 05/14/2024 9:41 AM EST 05/14/2024 2:25 PM EST us Juli Mac MD LAB BLOOD ORDERABLES Final Result Performing Organization Address [facility] Co de Phone Number [facility] [address] [place] [phone] * HIV-1/2 Antigen and Antibodies, Fourth Generation, with Reflexes (05/14/2024 9:41 AM EST) HIV AB/AG Nonreactive Nonreactive [facility] Comment:HIV-1 p24 Ag and/or HIV-1/HIV-2 Ab not detected.A test result that is nonreactive does not exclude thepossibility of exposure to or infection with HIV-1 and/orHIV-2. Nonreactive results in this assay for individualswith prior exposure to HIV-1 and/or HIV-2 may be due toantigen and antibody levels that are below the limit ofdetection of this assay.The [employer] HIV Ag/Ab Combo assay result andsupplemental assay results should be interpreted inconjunction with the patient's clinical presentation,history and other laboratory results. If the results areinconsistent with clinical evidence, additional testing issuggested to confirm the result. Blood Venous blood specimen / Unknown 05/14/2024 9:41 AM EST 05/14/2024 2:25 PM EST us Juli Mac MD LAB BLOOD ORDERABLES Final Result Performing Organization Address [facility] Co de Phone Number [facility] [address] [place] [phone] * (ABNORMAL) Sed Rate by Modified Westergren (05/14/2024 9:41 AM EST) Erythrocyte Sedimentation Rate 23(H) 0 - 15 MM/HR [facility] Comment:Patients with polycy themia and many hemoglobin abnormalitiesmay have depressed sed rates whereas patients with anemiamay have elevated sed rates. Blood Venous blood specimen / Unknown 05/14/2024 9:41 AM EST 05/14/2024 2:25 PM EST us Juli Mac MD LAB BLOOD ORDERABLES Final Result Performing Organization Address [facility] Co de Phone Number [facility] [address] [place] [phone] * (ABNORMAL) C-reactive Protein (05/14/2024 9:41 AM EST) C Reactive Protein 0.51(H) < or = 0.50 mg/dL [facility] Blood Venous blood specimen / Unknown 05/14/2024 9:41 AM EST 05/14/2024 2:25 PM EST Juli Mac MD LAB BLOOD ORDERABLES Final Result [facility] [address] [place] [phone] [phone] * (ABNORMAL) ANNI Screen,IFA, with Reflex to Titer and Pattern (05/14/2024 9:41 AM EST) Anti Nuclear Antibody Screen POSITIVE (A) NEGATIVE [facility] Comment:ANNI IFA is a first l ine screen for detecting thepresence of up to approximately 150 autoantibodies invarious autoimmune diseases. A positive ANNI IFA resultis suggestive of autoimmune disease and reflexes totiter and pattern. Further laboratory testing may beconsidered if clinically indicated.For additional information, please refer tohttp://education.Re-vinyl/faq/UBS180(This link is being provided for informational/educational purposes only.) ANNI Titer 1:80(A) titer [facility] Comment:A low level NANI tite r may be present in pre-clinicalautoimmune diseases and normal individuals. Reference Range <1:40 Negative 1:40-1:80 Low Antibody Level >1:80 Elevated Antibody Level ANNI Pattern (A) [facility] Comment:Nuclear, Few Nuclear Dots Abnormal Flag: ANuclear dots (1-6 in number per cell) pattern is seen inSjogren's syndrome, systemic lupus erythematosus (SLE),systemic sclerosis (scleroderma), polymyositis, andasymptomatic individuals.AC-7: Few Nuclear DotsInternational Consensus on ANNI Patterns(https://doi.org/10.1515/bftt-4393-4941)THIS TEST WAS PERFORMED AT:[employer] [place] [id number] KELLY MD ANNI TITER 2 (REF LAB) [facility] ANNI Pattern 2 [facility] ANNI TITER 3 [facility] ANNI PATTERN 3 [facility] Blood Venous blood specimen / Unknown 05/14/2024 9:41 AM EST 05/14/2024 2:25 PM EST us Juli Mac MD LAB BLOOD ORDERABLES Final Result Performing Organization Address [facility] Co de Phone Number [facility] [address] [place] [address] [phone] * Testosterone, Total, males (Adult), IA (05/14/2024 9:41 AM EST) Testosterone, Total 399 250 - 1100 ng/dL [facility] Comment:For additional infor zhane, please refer tohttp://education.Constant Therapy/faq/RlrrpPlfquyseuhskQCLEIVHQM590(This link is being provided for informational/educational purposes only.)This test was developed and its analytical performancecharacteristics have been determined by [employer] [place], [place]. It hasnot been cleared or approved by the U.S. Food and DrugAdministration. This assay has been validated pursuantto the CLIA regulations and is used for clinicalpurposes.THIS TEST WAS PERFORMED AT:[employer]/[facility] [place] [address]ZCZPZTVMUNDO ALVARADO MD,PHD Blood Venous blood specimen / Unknown 05/14/2024 9:41 AM EST 05/14/2024 2:25 PM EST us Juli Mac MD LAB BLOOD ORDERABLES Final Result Performing Organization Address [facility]/ZIP Co de Phone Number [facility] [address] [place] [phone] [phone] * XR Chest 2 Views (05/01/2024 3:39 PM EST) Anatomical Region Laterality Modality Chest Radiographic Mary ging 05/01/2024 3:39 PM EST Narrative 05/02/2024 7:23 AM EST ? [facility] ?[address] ?[place], [place] [address] ?XRay Report ? Signed ? Patient: Rico,Kike ?MR#: [id number] ?? [id number] ? : 1980 ?Acct:[id number] ? Age/Sex: 43 / M ?ADM Date: 05/01/24 ? Loc: HO.XRAY ? Attending Dr: Meg Bernard SPLITTING MACHINE OPERATOR ? Ordering Physician: Meg Bernard SPLITTING MACHINE OPERATOR ?? Date of Service: 05/01/24 ?? Procedure(s): XR chest 2V ?? Accession Number(s): [id number] ? cc: Meg Bernard NP ? EXAMINATION: ?? XR CHEST ? CLINICAL [...] DD/ 1539 ? TD/TT: 05/01/24 1548 ? Chiropractic Neurologist: ? Procedure Note Kiara Charles - 05/02/2024 [facility] [address] [place] [address] XRay Report Signed Patient: Kike Gómez#: [id number] : 1980Acct:[id number] Age/Sex: 43 / MADM Date: 05/01/24 Loc: HO.XRAY Attending Dr: Meg Bernard SPLITTING MACHINE OPERATOR Ordering Physician: Meg Bernard NP Date of Service: 05/01/24 Procedure(s): XR chest 2V Accession Number(s): [id number] cc: Meg Bernard SPLITTING MACHINE OPERATOR EXAMINATION: XR CHEST CLINICAL INFORMATION: cough x [...] Juan Miguel MD 05/02/2024 07:20 AM EST RP Dictated By: Juan Mathews MD Signed By: <Electronically signed by Juan Spain MDin OV> 05/02/24 0720 DD/ 1539 TD/TT: 05/01/24 1548 Chiropractic Neurologist: Meg Bernard CIGARETTE MACHINE FILLER IMG XR PROCEDURES Edited Result - Final * POCT Rapid Strep A OSOM (04/01/2024 4:26 PM EST) [facility] Rapid Strep A Screen Negative Negative, None Detected QC Media Lot # [id number] Lot# Expiration Date [id number] Swab 04/01/2024 4:26 PM EST Lionel Ceballos MD POINT OF CARE TEST ENTER/EDIT ORDERABLES Final Result * POCT Rapid Covid-19 BinaxNOW (04/01/2024 4:25 PM EST) Pathologist [facility] Rapid COVID Ag Negative QC Media Lot # [id number] Lot# Expiration Date [id number] Swab 04/01/2024 4:25 PM EST us Lionel Ceballos MD POINT OF CARE TEST ENTER/EDIT ORDERABLES Final Result * (ABNORMAL) Lipid Panel, Standard (09/05/2023 10:12 AM EDT) Triglycerides 59 <150 mg/dL [facility] Comment:Desirable Triglyceri de: less than 150 mg/dLBorderline High Triglyceride 150-199 mg/dLHigh Triglyceride: 200-499 mg/dLVery High Triglyceride: greater than or equal to 5OO mg/dL Cholesterol 188 <200 mg/dL [facility] Comment:Desirable Cholestero l: less than 200 mg/dLBorderline High Cholesterol: 200-239 mg/dLHigh Cholesterol: greater than 239 mg/dL LDL Cholesterol Calculated 109(H) <100 mg/dL [facility] Comment:Desirable LDL: less than 100 mg/dLNear Optimal/Above Optimal LDL: 110- 129 mg/dLBorderline High LDL: 130-159 mg/dLHigh LDL: 160-189 mg/dLVery High LDL: greater than or equal to 190 mg/dL HDL Cholesterol 68 >40 mg/dL [facility] Comment:Desirable HDL: great er than 40 mg/dL Note: This HDL assay may give artificially low results in patients with liver disease. Blood Venous blood specimen / Unknown 09/05/2023 10:12 AM EDT 09/05/2023 2:22 PM EDT us Juli Mac MD LAB BLOOD ORDERABLES Final Result [facility] [address] [place] [phone] * Hepatitis C Antibody with Reflex to HCV, RNA, Quantitative, Real-Time PCR (08/23/2022 10:25 AM EDT) Hepatitis C Antibody NON-REACT LAURA NON-REACT LAUAR [facility] [place] [facility] Index <0.02 <1.00 [facility] Comment: HCV antibody was non-reactive. There is no laboratory evidence of HCV infection. In most cases, no further action is required. However, if recent HCV exposure is suspected, a test for HCV RNA (test code 67274) is suggested. For additional information please refer to http://education.Constant Therapy/faq/OOT52m0 (This link is being provided for informational/ educational purposes only.) Blood Venous blood specimen / Unknown 08/23/2022 10:25 AM EDT 08/23/2022 10:27 AM EDT us Juli Mac MD LAB BLOOD ORDERABLES Final Result [facility] [address], [place] [phone] [facility] [address] [place] [phone] from Last 3 Months or Most Recently Relevant to Health Maintenance Insurance [facility] Care Teams Fios Line Installer Relationship Specialty Start Date End Date Juli Mac MD [address] [place] [phone] PCP - General Internal Medicine 03/07/18
--- OUTSIDE RECORDS SUMMARY | 2024-06-26 10:01 | XMS_ITS | Encounter Summary ---
Author Organization [employer] Address [address] [facility] [address], [place] [address] Care Team Providers Care Assembly Member Name Role Phone Juli Mac MD Primary Care Provider [phone] Reason for Visit * Reason Onset Date Comments Results 09/12/2023 Encounter Details Date Type Department Care Team ([facility] st Contact Info) Description 09/12/2023 Telephone [facility] [address] [place] [address] Juli Mac MD [address] [place] [address] Results Social History Tobacco Use Types Packs/Day [...] 09/26/2023 4:11 PM EDT Placed call to [facility] lab regarding results. Lab did not have results yet and lab states only a coupleof techs in lab are able to test. Pt did have test done on 10/15/23, but unable to determine timeframe for results. * Telephone Encounter - Anca Recio - 09/25/2023 1:33 PM EDT Tc from pt requesting results on semen analysis done at [facility]. Pt is also having difficulty getting tadalafil (Cialis) 5 MG tablet from pharmacy. Pt is due for refill due to pharmacy only giving 12 tablets but was advised by pharmacy insurance will not cover until the . Please contact pt at [phone] * Telephone Encounter - Wing Jennifer RN - 09/14/2023 3:40 PM EDT Tc to pt regarding semen lab cup. Said I would greg [facility] at [phone]. Noni at [facility] said the semen analysis can be collected [...] Description 09/05/2024 2:00 PM EDT Office Visit [facility] [address] [place] [address] Juli Mac MD [address] [place] [address] documented as of this encounter Visit Diagnoses Not on filedocumented in this encounter Additional Health Concerns Assessment Noted Time PHQ-9 Depression Total Score: 6 09/05/19 24 10:03 AM EDT documented as of this encounter Care Teams Assembly Member Relationship Specialty Start Date End Date Juli Mac MD [address] [place] [address] PCP - General Internal Medicine 03/07/18 documented as of this encounter
--- OUTSIDE RECORDS SUMMARY | 2024-06-26 10:01 | XMS_ITS | Encounter Summary ---
Author Organization [employer] Address [address] [facility] [address]t [place] [address] Care Team Providers Care Manager Ems Name Role Phone Juli Mac MD Primary Care Provider [phone] Encounter Details Date Type Department Care Team (Latest Contact Info) Description 06/25/2024 Travel Social History Tobacco Use Types Packs/Day [...] Description 09/05/2024 2:00 PM EDT Office Visit [facility] [address] [place] [address] Juli Mac MD [address] [place] [address] documented as of this encounter Visit Diagnoses Not on filedocumented in this encounter Additional Health Concerns Assessment Noted Time PHQ-9 Depression Total Score: 6 09/05/19 24 10:03 AM EDT documented as of this encounter Care Teams Manager Ems Relationship Specialty Start Date End Date Juli Mac MD [address] [place] [address] PCP - General Internal Medicine 03/07/18 documented as of this encounter
--- OUTSIDE RECORDS SUMMARY | 2024-06-26 10:01 | XMS_ITS | Encounter Summary ---
Author Organization [employer] Address [address] [facility] 7 [place] [address] Care Team Providers Care Treatment Coordinator Name Role Phone Juli Mac MD Primary Care Provider [phone] Encounter Details Date Type Department Care Team ([facility] Contact Info) Description 09/07/2023 Orders Only [facility] [address] [place] [address] Juli Mac MD [address] [place] [address] Other male erectile dysfunction (Primary Dx); Postprocedural [...] Description 09/05/2024 2:00 PM EDT Office Visit [facility] [address] [place] [address] Juli Mac MD [address] [place] [address] documented as of this encounter Procedures Procedure Name Priority Date/Time Associated Diagnosis Comments TESTOSTERONE, FREE (DIALYSIS) AND TOTAL,MS Routine 09/27/2023 2:56 PM EDT Postprocedural hypothyroidism Other male erectile dysfunction documented in this encounter Results * Testosterone, Free (Dialysis) And Total, MS (09/27/2023 2:56 PM EDT) Testosterone, Total 272 250 - 1100 ng/dL [facility] Comment:For additional infor mation, please refer tohttp://education.Piictu.O&P Pro/faq/IxxgyYzlcurqfxgctSYXIJSDPC802(This link is being provided for informational/educational purposes only.)This test was developed and its analytical performancecharacteristics have been determined by [employer] [place], [place]. It hasnot been cleared or approved by the U.S. Food and DrugAdministration. This assay has been validated pursuantto the CLIA regulations and is used for clinicalpurposes. Testosterone, Free 43.2 35.0 - 155.0 pg/mL [facility] Comment:This test was develo ped and its analytical performancecharacteristics have been determined by [employer] [place], [place]. It hasnot been cleared or approved by the U.S. Food and DrugAdministration. This assay has been validated pursuantto the CLIA regulations and is used for clinicalpurposes.THIS TEST WAS PERFORMED AT:[employer] [place] [address]ESQDTCFMUNDO ALVARADO MD,PHD Blood Venous blood specimen / Unknown 09/27/2023 2:56 PM EDT 09/27/2023 5:10 PM EDT Juli Mac MD LAB BLOOD ORDERABLES Final Result [facility] [address] [place] [address] [phone] documented in this encounter Visit Diagnoses Diagnosis Other male erectile dysfunction- Primary Postprocedural hypothyroidism Postsurgical hypothyroidism documented in this encounter Additional Health Concerns Assessment Noted Time PHQ-9 Depression Total Score: 6 09/05/19 24 10:03 AM EDT documented as of this encounter Care Teams Treatment Coordinator Relationship Specialty Start Date End Date Juli Mac MD [address] [place] [phone] PCP - General Internal Medicine 03/07/18 documented as of this encounter
--- OUTSIDE RECORDS SUMMARY | 2024-06-26 10:01 | XMS_ITS | Encounter Summary ---
Author Organization [employer] Address [address] [place] [address] Care Team Providers Care Senior Android Software Engineer Name Role Phone Juli Mac MD Primary Care Provider [phone] Reason for Visit * Reason Onset Date Comments Med Refill 01/08/2024 Encounter Details Date Type Department Care Team ([facility] st Contact Info) Description 01/08/2024 Refill [facility] [address] [place] [address] Juli Mac MD [address] [place] [address] Social History Tobacco Use Types Packs/Day Years [...] Description 09/05/2024 2:00 PM EDT Office Visit [facility] [address] [place] [address] Juli Mac MD [address] [place] [address] documented as of this encounter Visit Diagnoses Not on filedocumented in this encounter Additional Health Concerns Assessment Noted Time PHQ-9 Depression Total Score: 6 09/05/19 24 10:03 AM EDT documented as of this encounter Care Teams Senior Android Software Engineer Relationship Specialty Start Date End Date Juli Mac MD [address] [place] [address] PCP - General Internal Medicine 03/07/18 documented as of this encounter
--- OUTSIDE RECORDS SUMMARY | 2024-06-26 10:01 | XMS_ITS | Encounter Summary ---
Author Organization [employer] Address [address] [place] [address] Care Team Providers Care Automation Developer Name Role Phone Juli Mac MD Primary Care Provider +1- [phone] Reason for Visit * Reason Onset Date Comments Med Refill 04/22/2024 Encounter Details Date Type Department Care Team ([facility] st Contact Info) Description 04/22/2024 Refill [facility] [address] [place] [address] Juli Mac MD [address] [place] [address] Postprocedural hypothyroidism Social History Tobacco Use Types [...] 2:00 PM EDT Office Visit [facility] [address] [place] [address] Juli Mac MD [address] [place] [address] documented as of this encounter Visit Diagnoses Diagnosis Postprocedural hypothyroidism Postsurgical hypothyroidism documented in this encounter Additional Health Concerns Assessment Noted Time PHQ-9 Depression Total Score: 6 09/05/19 24 10:03 AM EDT documented as of this encounter Care Teams Automation Developer Relationship Specialty Start Date End Date Juli Mac MD [address] [place] [address] PCP - General Internal Medicine 03/07/18 documented as of this encounter
--- NOTE | 2024-07-18 15:35 | PFT_ITS ---
Flows: FEV1: 97 % of predicted at 3.73 L FVC: 99 % of predicted at 4.78 L FEV1/FVC: 78 % Bronchodilator response: Present in small to medium airways only Volumes: Total lung capacity: 91 % of predicted at 6.13 L Residual volume: 84 % of predicted at 1.33 L Slow vital capacity: 93 % of predicted at 4.81 L Expiratory reserve volume: 91 % of predicted at 1.26 L Diffusion capacity: Normal Impression: No obstructive or restrictive ventilatory defects. Bronchodilator response is present in small to medium airways only. MTDD
[2024-07-18 16:30] VITALS: PULSE 68
--- OUTSIDE RECORDS SUMMARY | 2024-07-18 18:48 | XMS_ITS | Encounter Summary ---
Author Organization [employer] Address [address] [facility] [address] [place] [address] Care Team Providers Care Program Coordinator Name Role Phone Juli Mac MD Primary Care Provider [phone] [phone] Encounter Details Date Type Department Care Team [...] 2:00 PM EDT Office Visit [facility] [address] [place] [address] Juli Mac MD [address] [place] [address] documented as of this encounter Visit Diagnoses Not on filedocumented in this encounter Additional Health Concerns Assessment Noted Time PHQ-9 Depression Total Score: 6 09/05/19 24 10:03 AM EDT documented as of this encounter Care Teams Program Coordinator Relationship Specialty Start Date End Date Juli Mac MD [address] [place] [address] PCP - General Internal Medicine 03/07/18 documented as of this encounter
--- OUTSIDE RECORDS SUMMARY | 2024-07-18 18:48 | XMS_ITS | Encounter Summary ---
Author Organization [employer] Address [address] [place] [address] [facility] [place] [address] Care Team Providers Care Library Media Assistant Name Role Phone Juli Mac MD Primary Care Provider [phone]- [phone] Reason for Visit * Reason Comments Med Refill Encounter Details Date Type Department Care Team ([facility] st Contact Info) Description 07/09/2024 Refill [facility] [address] [place] [address] Juli Mac MD [address] [place] [address] Chronic midline thoracic back pain; Medial epicondylitis [...] Description 09/05/2024 2:00 PM EDT Office Visit [facility] [address] [place] [address] Juli Mac MD [address] [place] [address] documented as of this encounter Visit Diagnoses Diagnosis Chronic midline thoracic back pain Medial epicondylitis of right elbow documented in this encounter Additional Health Concerns Assessment Noted Time PHQ-9 Depression Total Score: 6 09/05/19 24 10:03 AM EDT documented as of this encounter Care Teams Library Media Assistant Relationship Specialty Start Date End Date Juli Mac MD [address] [place] [address] PCP - General Internal Medicine 03/07/18 documented as of this encounter
--- OUTSIDE RECORDS SUMMARY | 2024-07-18 18:48 | XMS_ITS | Encounter Summary ---
Author Organization [facility] Address [address] [place] [address] Care Team Providers Care Police Dispatcher Name Role Phone Juli Mac MD Primary Care Provider +1- [phone] Encounter Details Date Type Department Care Team (Late Contact Info) Description 02/10/2023 Orders Only [facility] [address] [place] [address] Juli Mac MD [address] [place] [address] Chronic midline thoracic back pain (Primary Dx) [...] 09/05/2024 2:00 PM EDT Office Visit [facility] [address] [place] [address] Juli Mac MD [address] [place] [address] documented as of this encounter Visit Diagnoses Diagnosis Chronic midline thoracic back pain- Primary documented in this encounter Additional Health Concerns Assessment Noted Time PHQ-9 Depression Total Score: 0 08/24/19 23 9:52 AM EDT documented as of this encounter Care Teams Police Dispatcher Relationship Specialty Start Date End Date Juli Mac MD [address] [place] [address] PCP - General Internal Medicine 03/07/18 documented as of this encounter
--- OUTSIDE RECORDS SUMMARY | 2024-07-18 18:48 | XMS_ITS | Encounter Summary ---
Author Organization [employer] Address [address] [facility] 7 [place] [address] Care Team Providers Care Back Panel Padder Name Role Phone Juli Mac MD Primary Care Provider +1 [phone] Encounter Details Date Type Department Care Team ([facility] Contact Info) Description 09/07/[address] [facility]EDS [address] [place] [address] Juli Mac MD [address] [place] [address] Other male erectile dysfunction (Primary Dx); Postprocedural [...] 09/05/2024 2:00 PM EDT Office Visit [facility] [address] [place] [address] Juli Mac MD [address] [place] [address] documented as of this encounter Procedures Procedure Name Priority Date/Time Associated Diagnosis Comments TESTOSTERONE, FREE (DIALYSIS) AND TOTAL,MS Routine 09/27/2023 2:56 PM EDT Postprocedural hypothyroidism Other male erectile dysfunction documented in this encounter Results * Testosterone, Free (Dialysis) And Total, MS (09/27/2023 2:56 PM EDT) Testosterone, Total 272 250 - 1100 ng/dL [facility] Comment:For additional infor mation, please refer tohttp://[email or web address].Talkspace/faq/[email or web address](This link is being provided for informational/educational purposes only.)This test was developed and its analytical performancecharacteristics have been determined by [employer] [place], [place]. It hasnot been cleared or approved by the U.S. Food and DrugAdministration. This assay has been validated pursuantto the CLIA regulations and is used for clinicalpurposes. Testosterone, Free 43.2 35.0 - 155.0 pg/mL [facility] Comment:This test was develo ped and its analytical performancecharacteristics have been determined by [employer] [place], [place]. It hasnot been cleared or approved by the U.S. Food and DrugAdministration. This assay has been validated pursuantto the CLIA regulations and is used for clinicalpurposes.THIS TEST WAS PERFORMED AT:[employer] [place] [address]VVBNORVMUNDO ALVARADO MD,PHD Blood Venous blood specimen / Unknown 09/27/2023 2:56 PM EDT 09/27/2023 5:10 PM EDT Juli Mac MD LAB BLOOD ORDERABLES Final Result [facility] [address] [place] [address] [phone] documented in this encounter Visit Diagnoses Diagnosis Other male erectile dysfunction- Primary Postprocedural hypothyroidism Postsurgical hypothyroidism documented in this encounter Additional Health Concerns Assessment Noted Time PHQ-9 Depression Total Score: 6 09/05/19 24 10:03 AM EDT documented as of this encounter Care Teams Back Panel Padder Relationship Specialty Start Date End Date Juli Mac MD [address] [place] [address] PCP - General Internal Medicine 03/07/18 documented as of this encounter
--- OUTSIDE RECORDS SUMMARY | 2024-07-18 18:48 | XMS_ITS | Encounter Summary ---
Author Organization [employer] Address [address] [facility] [address] [address] Care Team Providers Care Order Clerk Name Role Phone Juli Mac MD Primary Care Provider +1- [phone] Reason for Visit * Reason Onset Date Comments Results 09/12/2023 Encounter Details Date Type Department Care Team ([facility] st Contact Info) Description 09/12/2023 Telephone [facility] [address] [place] [address] Juli Mac MD [address] [place] [address] Results Social History Tobacco Use Types Packs/Day [...] 09/26/2023 4:11 PM EDT Placed call to [facility] lab regarding results. Lab did not have results yet and lab states only a coupleof techs in lab are able to test. Pt did have test done on 10/15/23, but unable to determine timeframe for results. * Telephone Encounter - Anca Recio - 09/25/2023 1:33 PM EDT Tc from pt requesting results on semen analysis done at [facility]. Pt is also having difficulty getting tadalafil (Cialis) 5 MG tablet from pharmacy. Pt is due for refill due to pharmacy only giving 12 tablets but was advised by pharmacy insurance will not cover until the . Please contact pt at [phone] * Telephone Encounter - Wing Jennifer RN - 09/14/2023 3:40 PM EDT Tc to pt regarding semen lab cup. Said I would greg [facility] at [phone]. Noni at [facility] said the semen analysis can be collected [...] Description 09/05/2024 2:00 PM EDT Office Visit [facility] [address] [place] [address] Juli Mac MD [address] [place] [address] documented as of this encounter Visit Diagnoses Not on filedocumented in this encounter Additional Health Concerns Assessment Noted Time PHQ-9 Depression Total Score: 6 09/05/19 24 10:03 AM EDT documented as of this encounter Care Teams Order Clerk Relationship Specialty Start Date End Date Juli Mac MD [address] [place] [address] PCP - General Internal Medicine 03/07/18 documented as of this encounter
--- OUTSIDE RECORDS SUMMARY | 2024-07-18 18:48 | XMS_ITS | Encounter Summary ---
Author Organization [employer] Address [address] [place] [address] Care Team Providers Care Yard Crane Operator Name Role Phone Juli Mac MD Primary Care Provider +1- [phone] Reason for Visit * Reason Onset Date Comments Med Refill 01/08/2024 Encounter Details Date Type Department Care Team ([facility] st Contact Info) Description 01/08/2024 Refill [facility] [address] [place] [address] Juli Mac MD [address] [place] [address] Social History Tobacco Use Types Packs/Day Years [...] Description 09/05/2024 2:00 PM EDT Office Visit [facility] [address] [place] [address] Juli Mac MD [address] [place] [address] documented as of this encounter Visit Diagnoses Not on filedocumented in this encounter Additional Health Concerns Assessment Noted Time PHQ-9 Depression Total Score: 6 09/05/19 24 10:03 AM EDT documented as of this encounter Care Teams Yard Crane Operator Relationship Specialty Start Date End Date Juli Mac MD [address] [place] [address] PCP - General Internal Medicine 03/07/18 documented as of this encounter
--- OUTSIDE RECORDS SUMMARY | 2024-07-18 18:48 | XMS_ITS | Clinical Summary ---
Author Organization [employer] Address [address] [place] [address] [place] [address] Care Team Providers Care Plate And Frame Filter Operator Name Role Phone Juli Mac MD Primary Care Provider [phone]- [phone] Allergies No known active allergies Medications cholecalciferol [...] day. 12 tablet 1 024 Active Nystop 522389 UNIT/GM powderIndications :Intertrigo APPLY TO AFFECTED AREA [...] encounter 10 tablet 11 024 2024 Active loratadine (Claritin) 10 MG tabletIndications :Chronic [...] TWICE A DAY 60 capsule 025 Active celecoxib (CeleBREX) 200 MG capsuleIndication s:Chronic midline thoracic back pain,Medial epicondylitis of right elbow TAKE 1 CAPSULE BY MOUTH TWICE A DAY 60 capsule 025 2024 Discontinued Active Problems Problem Noted Date Diagnosed Date Chronic back pain 08/23/2022 Hypothyroidism 07/20/2020 Moderate persistent asthma without complication 04/16/2018 Encounters Date Type Department Care Team Description 07/09/2024 Refill [facility] [address] [place] [address] Juli Mac MD Chronic midline thoracic back pain; Medial epicondylitis of right elbow 06/25/2024 1:45 PM EST Office Visit [facility] [address] [place] [address] Juli Mac MD Chronic cough (Primary Dx); Elevated BP without diagnosis of hypertension 06/25/2024 Travel 06/04/2024 Refill [facility] [address] [place] [address] Juli Mac MD Chronic cough 05/28/2024 Refill [facility] [address] [place] [address] Liudmila Hogue MD Chronic midline thoracic back pain; Medial epicondylitis of right elbow 05/13/2024 11:15 AM EST Office Visit [facility] [address] [place] [address] Juli Mac MD Chronic cough (Primary Dx); Other male erectile dysfunction; Screen for STD (sexually transmitted disease); Postablative hypothyroidism 05/13/2024 Refill [facility] [address] [place] [address] Juli Mac MD Chronic cough 05/13/2024 Travel 05/03/2024 Telephone [facility] [address] [place] [address] Juli Mac MD Results 05/03/2024 Telephone [facility] [address] [place] [address] Alba Sánchez, RN Results 05/01/2024 2:20 PM EST Office Visit [facility] [address] [place] [address] Meg Bernard FNP Cough present for greater than 3 weeks (Primary Dx); PND (post-nasal drip) 05/01/2024 Travel 05/01/2024 Telephone [facility] [address] [place] [address] Juli Mac MD Nurse Triage 04/28/2024 Refill [facility] [address] [place] [address] Juli Mac MD Chronic midline thoracic back pain; Medial epicondylitis of right elbow 04/22/2024 Refill [facility] [address] [place] [address] Juli Mac MD Postprocedural hypothyroidism 04/18/2024 Refill [facility] [address] [place] [address] Juli Mac MD Postprocedural hypothyroidism from Last 3 Months Immunizations Name Administration [...] [facility] [address] [place] [address] Juli Mac MD [address] [place] [address] Health Maintenance Due Date Last Done Comments [...] Procedure Name Priority Date/Time Associated Diagnosis Comments CT CHEST WO CONTRAST Routine 06/26/2024 10:01 AM EST Chronic cough CHLAMYDIA/N. GONORRHOEAE RNA, TMA, UROGENITAL Routine 05/14/2024 [...] Cough present for greater than 3 weeks LIPID PANEL, STANDARD Routine 09/05/2023 10:12 AM EDT Postablative hypothyroidism Annual physical exam PERIODIC ORAL EVALUATION - ESTABLISHED PATIENT Routine 02/13/2023 1:00 PM EDT HEPATITIS C AB W/REFL TO HCV RNA, QN, PCR Routine 08/23/2022 10:25 AM EDT Annual physical exam from Last 3 Months or Most Recently Relevant to Health Maintenance Results * CT Chest w/o Contrast (06/26/2024 10:01 AM EST) Anatomical Region Laterality Modality Body, Chest Computed Tomogra phy 06/26/2024 10:0 1 AM EST Narrative 06/26/2024 11:18 AM EST ? [facility] ?[address] ?[place] [address] ? CT Scan Report ? Signed ? Patient: Rico,Kike ?MR#: [id number] ?? [id number] ? : 1980 ?Acct:[id number] ? Age/Sex: 43 / M ?ADM Date: 02/05/25 ? Loc: HO.CT ? Attending Dr: Juli Mac MD ? Ordering Physician: Juli Mac MD ?? Date of Service: 06/26/24 ?? Procedure(s): CT chest wo IV con ?? Accession Number(s): [id number] ? cc: Juli Mac MD ? Report Number: ?? [id number]: Total DLP = ??197.00 mGy-cm ?? EXAMINATION: ?? CT CHEST WITHOUT CONTRAST ? CLINICAL INFORMATION: ?? Chronic cough. ? COMPARISON: ?? None available. ? TECHNIQUE: ?? Multidetector volumetric CT imaging of the chest was done. Axial MIP ?? volume rendering provided. Sagittal and coronal reformatted images were ?? obtained. ? This CT examination was performed using dose optimization techniques as ?? appropriate, variously including the following: ?? *Automated exposure control ?? *Adjustment of mA and/or kV according to patient size (this includes ?? techniques or standardized protocols for targeted exams where dose is ?? matched to indication/reason for exam; i.e. extremities or head) ?? *Use of iterative reconstruction technique ? FINDINGS: ? No consolidation, pleural effusion or pneumothorax. ?? No bronchiectasis. No honeycombing. ?? Subsegmental atelectasis versus scarring in the lung bases. ?? No gross pulmonary nodules. ?? Respiratory airways is grossly patent. ?? Subpleural/pleural based 2 mm nodule right upper lung, nonspecific. ?? No aneurysm in the thoracic aorta. ?? No gross lymphadenopathy, mediastinum or axillary. ?? No pericardial effusion. ?? I do not see the thyroid gland. ?? Multilevel thoracic spondylosis without acute fracture or listhesis. No ?? lytic or blastic lesions. ? CT/CT chest wo IV con ?? IMPRESSION: ?? No acute airspace disease. ? Fleischner guidelines were followed. ? Electronically signed by: ??Juan Miguel MD ??06/26/2024 11:14 AM ?? EST RP ? Dictated By: ?Juan Mathews MD ? Signed By: ?<Electronically signed by Juan Spain MD in OV> ? 06/26/24 1114 ? DD/ 1001 ? TD/TT: 06/26/24 1049 ? Accreditation Manager: ? Procedure Note Donotuseinterpreter, Image - 06/26/[address] [address] [address] Scan Report Signed Patient: Kike GómezMR#: [id number] : 1980Acct:[id number] Age/Sex: 43 / MADM Date: 06/26/24 Loc: HO.CT Attending Dr: Juli Mac MD Ordering Physician: Juli Mac MD Date of Service: 06/26/24 Procedure(s): CT chest wo IV con Accession Number(s): [id number] cc: Juli Mac MD Report Number: [id number]: Total DLP = 197.00 mGy-cm EXAMINATION: CT CHEST WITHOUT CONTRAST CLINICAL INFORMATION: Chronic cough. COMPARISON: None available. TECHNIQUE: Multidetector volumetric CT imaging of the chest was done. Axial MIP volume rendering provided. Sagittal and coronal reformatted images were obtained. This CT examination was performed using dose optimization techniques as appropriate, variously including the following: *Automated exposure control *Adjustment of mA and/or kV according to patient size (this includes techniques or standardized protocols for targeted exams where dose is matched to indication/reason for exam; i.e. extremities or head) *Use of iterative reconstruction technique FINDINGS: No consolidation, pleural effusion or pneumothorax. No bronchiectasis. No honeycombing. Subsegmental atelectasis versus scarring in the lung bases. No gross pulmonary nodules. Respiratory airways is grossly patent. Subpleural/pleural based 2 mm nodule right upper lung, nonspecific. No aneurysm in the thoracic aorta. No gross lymphadenopathy, mediastinum or axillary. No pericardial effusion. I do not see the thyroid gland. Multilevel thoracic spondylosis without acute fracture or listhesis. No lytic or blastic lesions. CT/CT chest wo IV con IMPRESSION: No acute airspace disease. Fleischner guidelines were followed. Electronically signed by: Juan Miguel MD 06/26/2024 11:14 AM EST RP Dictated By: Juan Mathews MD Signed By: <Electronically signed by Juan Spain MDin OV> 06/26/24 1114 DD/ 1001 TD/TT: 06/26/24 1049 Accreditation Manager: us Juli Mac MD IMG CT PROCEDURES Edited Re sult - Final * Chlamydia/N. Gonorrhoeae RNA, TMA, Urogenitial (05/14/2024 9:42 AM EST) CT PCR NOT DETECTED Not Detect. [facility] Comment:A not detected test result [...] psychologicalconsequences. NG PCR NOT DETECTED Not Detect. [facility] Comment:A not detected test result [...] AM EST 05/14/2024 2:15 PM EST Narrative [facility] - 05/14/2024 6:56 PM EST Urine us Juli Mac MD LAB MICROBIOLOGY - GENERAL ORDERABLES Final Result Performing Organization Address [facility] Co de Phone Number [facility] [address] [place] [address] [phone] * Syphilis Screen (05/14/2024 9:41 AM EST) Syphilis Screen Nonreactive Nonreactive [facility] Blood 05/14/2024 9:41 AM EST 05/14/2024 2:25 PM EST us Juli Mac MD LAB BLOOD ORDERABLES Final Result Performing Organization Address [facility] de Phone Number [facility] [address] [place] [phone] * TSH W/Reflex to FT4 (05/14/2024 9:41 AM EST) TSH reflex Free T4 1.44 0.32 - 4.0 uIU/mL [facility] Blood Venous blood specimen / Unknown 05/14/2024 9:41 AM EST 05/14/2024 2:25 PM EST us Juli Mac MD LAB BLOOD ORDERABLES Final Result Performing Organization Address [facility] Co de Phone Number [facility] [address] [place] [address] [phone] * SCL-70 Antibody (05/14/2024 9:41 AM EST) SCL-70 Antibody <1.0 NEG <1.0 NEG AI [facility] Comment:THIS TEST WAS PERFOR MED AT:[employer] [address] [address]IZOWAFAISAL KELLY MD Blood Venous blood specimen / Unknown 05/14/2024 9:41 AM EST 05/14/2024 2:25 PM EST us Juli Mac MD LAB BLOOD ORDERABLES Final Result Performing Organization Address [facility]/ZIP Co de Phone Number [facility] [address] [place] [address] [phone] * HIV-1/2 Antigen and Antibodies, Fourth Generation, with Reflexes (05/14/2024 9:41 AM EST) HIV AB/AG Nonreactive Nonreactive [facility] Comment:HIV-1 p24 Ag and/or HIV-1/HIV-2 Ab not detected.A test result that is nonreactive does not exclude thepossibility of exposure to or infection with HIV-1 and/orHIV-2. Nonreactive results in this assay for individualswith prior exposure to HIV-1 and/or HIV-2 may be due toantigen and antibody levels that are below the limit ofdetection of this assay.[employer] HIV Ag/Ab Combo assay result andsupplemental assay results should be interpreted inconjunction with the patient's clinical presentation,history and other laboratory results. If the results areinconsistent with clinical evidence, additional testing issuggested to confirm the result. Blood Venous blood specimen / Unknown 05/14/2024 9:41 AM EST 05/14/2024 2:25 PM EST us Juli Mac MD LAB BLOOD ORDERABLES Final Result Performing Organization Address City/[facility]/ZIP Co de Phone Number [facility] [address] [place] [address] [phone] * (ABNORMAL) Sed Rate by Modified Panteraergren (05/14/2024 9:41 AM EST) Erythrocyte Sedimentation Rate 23(H) 0 - 15 MM/HR [facility] Comment:Patients with polycy themia and many hemoglobin abnormalitiesmay have depressed sed rates whereas patients with anemiamay have elevated sed rates. Blood Venous blood specimen / Unknown 05/14/2024 9:41 AM EST 05/14/2024 2:25 PM EST Juli Mac MD LAB BLOOD ORDERABLES Final Result Performing Organization Address [facility] Co de Phone Number [facility] [address] [place] [phone] * (ABNORMAL) C-reactive Protein (05/14/2024 9:41 AM EST) C Reactive Protein 0.51(H) < or = 0.50 mg/dL [facility] Blood Venous blood specimen / Unknown 05/14/2024 9:41 AM EST 05/14/2024 2:25 PM EST Juli Mac MD LAB BLOOD ORDERABLES Final Result Performing Organization Address [facility] de Phone Number [facility] [address] [place] [phone] * (ABNORMAL) ANNI Screen,IFA, with Reflex to Titer and Pattern (05/14/2024 9:41 AM EST) Anti Nuclear Antibody Screen POSITIVE (A) NEGATIVE [facility] Comment:ANNI IFA is a first l ine screen for detecting thepresence of up to approximately 150 autoantibodies invarious autoimmune diseases. A positive ANNI IFA resultis suggestive of autoimmune disease and reflexes totiter and pattern. Further laboratory testing may beconsidered if clinically indicated.For additional information, please refer tohttp://education.[employer].Petflow/faq/PWP662(This link is being provided for informational/educational purposes only.) ANNI Titer 1:80(A) titer [facility] Comment:A low level ANNI tite r may be present in pre-clinicalautoimmune diseases and normal individuals. Reference Range <1:40 Negative 1:40-1:80 Low Antibody Level >1:80 Elevated Antibody Level ANNI Pattern (A) [facility] Comment:Nuclear, Few Nuclear Dots Abnormal Flag: ANuclear dots (1-6 in number per cell) pattern is seen inSjogren's syndrome, systemic lupus erythematosus (SLE),systemic sclerosis (scleroderma), polymyositis, andasymptomatic individuals.AC-7: Few Nuclear DotsInternational Consensus on ANNI Patterns(https://doi.org/10.1515/fbfk-8783-4649)THIS TEST WAS PERFORMED AT:[employer] [address] [address]RRDOBFAISAL KELLY MD ANNI TITER 2 (REF LAB) [facility] ANNI Pattern [address] [facility] ANNI TITER 3 [facility] ANNI PATTERN 3 [facility] Blood Venous blood specimen / Unknown 05/14/2024 9:41 AM EST 05/14/2024 2:25 PM EST Juli Mac MD LAB BLOOD ORDERABLES Final Result [facility] [address] [place] [address] [phone] * Testosterone, Total, males (Adult), IA (05/14/2024 9:41 AM EST) Testosterone, Total 399 250 - 1100 ng/dL [facility] Comment:For additional infor zhane, please refer tohttp://education.[employer].Petflow/faq/QkvhpUveypolkzhuhWPQRDAREP441(This link is being provided for informational/educational purposes only.)This test was developed and its analytical performancecharacteristics have been determined by [employer] [place], [place]. It hasnot been cleared or approved by the U.S. Food and DrugAdministration. This assay has been validated pursuantto the CLIA regulations and is used for clinicalpurposes.THIS TEST WAS PERFORMED AT:[employer] [id number] [place] [address]GLFIDBJMUNDO ALVARADO MD,PHD Blood Venous blood specimen / Unknown 05/14/2024 9:41 AM EST 05/14/2024 2:25 PM EST us Juli Mac MD LAB BLOOD ORDERABLES Final Result [facility] [address] [place] [address] [phone] * XR Chest 2 Views (05/01/2024 3:39 PM EST) Anatomical Region Laterality Modality Chest Radiographic Mary ging 05/01/2024 3:39 PM EST Narrative 05/02/2024 7:23 AM EST ? [facility] ?[address] ?[place] [address] ?XRay Report ? Signed ? Patient: Rico,Kike ?MR#: [id number] ?? [id number] ? : 1980 ?Acct:[id number] ? Age/Sex: 43 / M ?ADM Date: 05/01/24 ? Loc: HO.XRAY ? Attending Dr: Meg Bernard SOFTWARE SECURITY CONSULTANT ? Ordering Physician: Meg Bernard SOFTWARE SECURITY CONSULTANT ?? Date of Service: 05/01/24 ?? Procedure(s): XR chest 2V ?? Accession Number(s): [id number] ? cc: Meg Bernard SOFTWARE SECURITY CONSULTANT ? EXAMINATION: ?? XR CHEST ? CLINICAL [...] DD/ 1539 ? TD/TT: 05/01/24 1548 ? Accreditation Manager: ? Procedure Note Donotuseinterpreter, Image - 05/02/[address] [address] XRay Report Signed Patient: Kike GómezMR#: [id number] : 1980Acct:[id number] Age/Sex: 43 / MADM Date: 05/01/24 Loc: HO.XRAY Attending Dr: Meg Bernard SOFTWARE SECURITY CONSULTANT Ordering Physician: Meg Bernard NP Date of Service: 05/01/24 Procedure(s): XR chest 2V Accession Number(s): [id number] cc: Meg Bernard SOFTWARE SECURITY CONSULTANT EXAMINATION: XR CHEST CLINICAL INFORMATION: cough x [...] 05/02/24 0720 DD/ 1539 TD/TT: 05/01/24 1548 Accreditation Manager: us Meg Bernard FAN MAIL CLERK IMG XR PROCEDURES Edited Result - Final * (ABNORMAL) Lipid Panel, Standard (09/05/2023 10:12 AM EDT) Triglycerides 59 <150 mg/dL [facility] Comment:Desirable Triglyceri de: less than 150 mg/dLBorderline High Triglyceride 150-199 mg/dLHigh Triglyceride: 200-499 mg/dLVery High Triglyceride: greater than or equal to 5OO mg/dL Cholesterol 188 <200 mg/dL [facility] Comment:Desirable Cholestero l: less than 200 mg/dLBorderline High Cholesterol: 200-239 mg/dLHigh Cholesterol: greater than 239 mg/dL LDL Cholesterol Calculated 109(H) <100 mg/dL [facility] Comment:Desirable LDL: less than 100 mg/dLNear Optimal/Above Optimal LDL: 110- 129 mg/dLBorderline High LDL: 130-159 mg/dLHigh LDL: 160-189 mg/dLVery High LDL: greater than or equal to 190 mg/dL HDL Cholesterol 68 >40 mg/dL [facility] Comment:Desirable HDL: great er than 40 mg/dL Note: This HDL assay may give artificially low results in patients with liver disease. Blood Venous blood specimen / Unknown 09/05/2023 10:12 AM EDT 09/05/2023 2:22 PM EDT Juli Mac MD LAB BLOOD ORDERABLES Final Result [facility] [address] [place] [phone] * Hepatitis C Antibody with Reflex to HCV, RNA, Quantitative, Real-Time PCR (08/23/2022 10:25 AM EDT) Hepatitis C Antibody NON-REACT LAURA NON-REACT LAURA [facility] [place] [employer] Index <0.02 <1.00 [facility] Comment: HCV antibody was non-reactive. There is no laboratory evidence of HCV infection. In most cases, no further action is required. However, if recent HCV exposure is suspected, a test for HCV RNA (test code 15597) is suggested. For additional information please refer to http://education.Daixe/faq/HDH58x1 (This link is being provided for informational/ educational purposes only.) Blood Venous blood specimen / Unknown 08/23/2022 10:25 AM EDT 08/23/2022 10:27 AM EDT Juli Mac MD LAB BLOOD ORDERABLES Final Result [facility] [address] [facility], [facility], [place] [address] [facility] [place] [facility] [address] [place] [address] from Last 3 Months or Most Recently Relevant to Health Maintenance Insurance BCBS Care Teams Plate And Frame Filter Operator Relationship Specialty Start Date End Date Juli Mac MD [address] [place] [address] PCP - General Internal Medicine 03/07/18
--- OUTSIDE RECORDS SUMMARY | 2024-07-18 18:48 | XMS_ITS | Encounter Summary ---
Author Organization [employer] Address [address] [place] [address] Care Team Providers Care Asset Card Clerk Name Role Phone Juli Mac MD Primary Care Provider [phone]- [phone] Reason for Visit * Reason Onset Date Comments Med Refill 04/22/2024 Encounter Details Date Type Department Care Team ([facility] st Contact Info) Description 04/22/2024 Refill [facility] [address] [place] [address] Juli Mac MD [address] [place] [address] Postprocedural hypothyroidism Social History Tobacco Use Types [...] 2:00 PM EDT Office Visit [facility] [address] [place] [address] Juli Mac MD [address] [place] [address] documented as of this encounter Visit Diagnoses Diagnosis Postprocedural hypothyroidism Postsurgical hypothyroidism documented in this encounter Additional Health Concerns Assessment Noted Time PHQ-9 Depression Total Score: 6 09/05/19 24 10:03 AM EDT documented as of this encounter Care Teams Asset Card Clerk Relationship Specialty Start Date End Date Juli Mac MD [address] [place] [address] PCP - General Internal Medicine 03/07/18 documented as of this encounter
--- OUTSIDE RECORDS SUMMARY | 2024-07-18 18:48 | XMS_ITS | Encounter Summary ---
Author Organization [employer] Address [address] [facility] 7 [place] [address] Care Team Providers Care Construction Plumber Name Role Phone Juli Mac MD Primary Care Provider [phone] Encounter Details Date Type Department Care Team ([facility] st Contact Info) Description 09/28/2023 Orders Only [facility] [address] [place], [place] [phone] Juli Mac MD [address] [place] [address] Other male erectile dysfunction Social History Tobacco [...] Upcoming Encounters Date Type Department Care Team ([facility] st Contact Info) Description 09/05/2024 2:00 PM EDT Office Visit [facility] [address] [place] [address] Juli Mac MD [address] [place] [address] documented as of this encounter Visit Diagnoses Diagnosis Other male erectile dysfunction documented in this encounter Additional Health Concerns Assessment Noted Time PHQ-9 Depression Total Score: 6 09/05/19 24 10:03 AM EDT documented as of this encounter Care Teams Construction Plumber Relationship Specialty Start Date End Date Juli Mac MD [address] [place] [address] PCP - General Internal Medicine 03/07/18 documented as of this encounter
--- OUTSIDE RECORDS SUMMARY | 2024-07-18 18:48 | XMS_ITS | Clinical Summary ---
Author Organization [facility] Address [address] [place] [address] Care Team Providers Care Metal Pourer Name Role Phone Unavailable Primary Care Provider Unavailabl e Social History Tobacco Use Types Packs/Day Years Used Date Smoking Tobacco: Never Assessed Sex and Gender Information Value Date Recorded Sex Assigned at Not on file Legal Sex Male 4:54 AM EST Gender Identity Not on file Sexual Orientation [...] patient's age to complete this topic Meningococcal B Vacine Aged Out No lo nger eligible based on patient's age to complete [...]
--- OUTSIDE RECORDS SUMMARY | 2024-07-18 18:48 | XMS_ITS | Encounter Summary ---
Author Organization [employer] Address [address] [place] [address] [address] [address] Care Team Providers Care Oil Field Equipment Mechanic Supervisor Name Role Phone Juli Mac MD Primary Care Provider [phone]- [phone] Reason for Visit * Reason Comments Follow-up Chronic cough Encounter Details Date Type Department Care Team ([facility] Contact Info) Description 06/25/2024 1:45 PM EST Office Visit [facility] [address] [place] [address] Juli Mac MD [address] [place] [address] Chronic cough (Primary Dx); Elevated BP without [...] ONCE PER DAY. 90 tablet 1 Nystop 174303 UNIT/GM powder APPLY TO AFFECTED AREA TWICE [...] Upcoming Encounters Date Type Department Care Team ([facility] st Contact Info) Description 09/05/2024 2:00 PM EDT Office Visit [facility] [address] [place] [address] Juli Mac MD [address] [place] [address] documented as of this encounter Visit Diagnoses Diagnosis Chronic cough- Primary Cough Elevated BP without diagnosis of hypertension documented in this encounter Additional Health Concerns Assessment Noted Time PHQ-9 Depression Total Score: 6 09/05/19 24 10:03 AM EDT documented as of this encounter Care Teams Oil Field Equipment Mechanic Supervisor Relationship Specialty Start Date End Date Juli Mac MD [address] [place] [address] PCP - General Internal Medicine 03/07/18 documented as of this encounter
== END 2024-07-18 15:30 | disposition home or self-care (01) ==
LOC: HO.RESP 15:29
PROVIDERS: PCP Internal Medicine; Visit Provider Nurse Practitioner Family
DX: J45.909 Unspecified asthma, uncomplicated (principal)
CPT/HCPCS: 94010; 94640; 94727; 94729

== ENCOUNTER → 2024-07-18 15:35 | Outpatient (BNV) | payer BC, SELFPAY | PROVIDERS: PCP Internal Medicine; Visit Provider Internal Medicine Pulmonary Disease | DX: J45.909 Unspecified asthma, uncomplicated (principal) | CPT/HCPCS: 94060; 94727; 94729 ==

== ENCOUNTER 2024-07-24 15:08 | Outpatient (AMB) | payer BC, SELFPAY ==
[2024-07-24 15:09] VITALS: BP 118/64; PULSE 77; O2SAT 96; BMI 31.3
--- NOTE | 2024-07-24 15:09 | MHC.OFFVIS ---
Vital Signs 07/24/24 15:09 Height 5 ft 8 in Weight 206 lb BMI 31.3 BP 118/64 Blood Pressure Location Rt brachial Position Sitting Pulse 77 Pulse Source Pulse Oximeter Pulse Oximetry (%) 96 Oxygen Delivery Method Room Air Intake Visit Reasons: chronic cough/ PFT FU Home Staging Specialist Required: No Airdrop Systems Technician: Airdrop Systems Technician offered & declined Accompanied by: Self / Same As Patient Allergies No Known Allergies [No Known Allergies*] Allergy (Verified 07/24/24 15:14) Medication List - Last Reconciled 07/24/24 by Adry West LPN albuterol sulfate 90 mcg/actuation 2 puffs inhalation Q4-6H PRN albuterol sulfate 90 mcg/actuation (ProAir RespiClick) 2 inhalations inhalation Q6H PRN budesonide-formoterol 160-4.5 mcg/actuation (Symbicort) 2 puffs inhalation Q12H celecoxib (Celebrex) 200 mg PO BID cholecalciferol (vitamin D3) 50 mcg PO DAILY cyclobenzaprine 10 mg PO TID levothyroxine 137 mcg PO QAM methocarbamol 750 mg PO Q8H naproxen (Naprosyn) 500 mg PO BID prednisone 10 mg PO DIRECTED HPI HPI chronic cough/ PFT FU: Details: Kike is a pleasant 43 year old male, former minimal smoker, with underlying asthma and hypothyroidism. He was initially referred by PCP for pulmonary evaluation for chronic cough as well as CXR which revealed reticular changes of bases. He was also sent for autoimmune workup with +ANNI, elevated ESR and slight elevation in CRP, with upcoming rheumatology consultation. At the last visit, he has been using Advair consistently and had resolution of cough with prednisone. He also notes that he has been able to return to the gym without cough or wheezing. He does note that he has dyspnea on moderate exertion, not using albuterol MDI. Unfortunately, he did not take prednisone as prescribed and has been using 20mg daily for the last two weeks. He had recent chest CT which was unremarkable other than a 2 mm subpleural nodule of the RUL. [facility] Medical History Medial epicondylitis of right elbow Hypothyroidism Social History (Updated 06/12/24 @ 10:37 by Adry West LPN) Alcohol intake: current Alcohol intake frequency: a few times a month Alcohol type: hard liquor Patient Tobacco Use Status: Former Tobacco user Cigarette Packs Per Day: 0.5 Years Smoked: 5 years Review of Systems Const Denies chills, Denies excessive sweating, Denies fever(s), Denies headache(s) and Denies night sweats Eyes Denies dry eyes, Denies irritation and Denies itchy eyes ENT Reports Normal hearing present, Denies headache(s), Denies nasal congestion, Denies nasal discharge, Denies post nasal drip and Denies sore throat Card Denies chest pain, Denies chest pain at rest, Denies chest pain with activity, Denies claudication, Denies leg edema, Denies orthopnea and Denies paroxysmal nocturnal dyspnea Resp Denies chest congestion, Denies cough, Denies excessive phlegm production, Denies pain on inspiration, Denies pain with cough, Denies stridor and Denies wheezing Musc Denies myalgias Neuro Reports Normal hearing present and Denies headache(s) Endo Denies excessive sweating Raymundo/Lymph Denies lymphadenopathy Aller/Immun Denies itchy eyes, Denies seasonal rhinorrhea and Denies wheezing Physical Exam Vital Signs: Last Vital Signs Pulse 77 07/24/24 15:09 BP 118/64 07/24/24 15:09 Pulse Ox 96 07/24/24 15:09 Oxygen Delivery Method Room Air 07/24/24 15:09 BMI result Body Mass Index 31.3 Const General: cooperative, healthy appearing, comfortable, no acute distress, well developed and alert Orientation/consciousness: patient oriented x3 Limitations: no limitations HEENT Head: Yes normal to inspection, Yes normocephalic and Yes atraumatic Ears: hearing grossly normal bilaterally and external ears normal Eyes General: appearance normal, both eyes and all related structures Eyelids: Yes eyelids normal Sclerae: sclerae normal EOM: EOMs intact bilaterally Neck Neck: Yes normal visual inspection and Yes no lymphadenopathy Lymphatic: no lymphadenopathy noted Chest Chest palpation & inspection: normal inspection of the chest Resp Effort & Inspection: normal respiratory effort, able to speak in complete sentences, no audible wheezes, no cough, no stridor, not tachypneic, no tripod positioning and no use of accessory muscles Auscultation: clear to auscultation bilaterally Cardio Jugular venous distension: no JVD Rate: regular rate Rhythm: regular rhythm Skin Other: warm, dry General skin exam: no rashes or lesions noted Neuro General: patient oriented x3 Cranial nerves: Yes Normal hearing present Cognition (Neuro): normal cognition Gait exam (Neuro): Normal gait present Extrem General: Yes normal to inspection, Yes capillary refill normal, Yes no clubbing, cyanosis or edema and Yes no pedal edema Psych Appearance: grossly normal and well kempt Speech and movement: Normal speech and movement present and Clear speech present Affect: normal affect Attitude: cooperative Thought process: Normal thought process present Thought content: Normal thought content present Insight: Good insight present (Psych) Judgement: Good judgement present (Psych) Results Reviewed Results Reviewed: [address] [address] [address] Scan Report Signed Patient: Kike Gómez MR#: [id number] : 1980 Acct:[id number] Age/Sex: 43 / M ADM Date: 06/26/24 Loc: HO.CT Attending Dr: Juli Mac MD Ordering Physician: Juli Mac MD Date of Service: 06/26/24 Procedure(s): CT chest wo IV con Accession Number(s): [id number] cc: Juli Mac MD~ Report Number: [id number]: Total DLP = 197.00 mGy-cm EXAMINATION: CT CHEST WITHOUT CONTRAST CLINICAL INFORMATION: Chronic cough. COMPARISON: None available. TECHNIQUE: Multidetector volumetric CT imaging of the chest was done. Axial MIP volume rendering provided. Sagittal and coronal reformatted images were obtained. This CT examination was performed using dose optimization techniques as appropriate, variously including the following: *Automated exposure control *Adjustment of mA and/or kV according to patient size (this includes techniques or standardized protocols for targeted exams where dose is matched to indication/reason for exam; i.e. extremities or head) *Use of iterative reconstruction technique FINDINGS: No consolidation, pleural effusion or pneumothorax. No bronchiectasis. No honeycombing. Subsegmental atelectasis versus scarring in the lung bases. No gross pulmonary nodules. Respiratory airways is grossly patent. Subpleural/pleural based 2 mm nodule right upper lung, nonspecific. No aneurysm in the thoracic aorta. No gross lymphadenopathy, mediastinum or axillary. No pericardial effusion. I do not see the thyroid gland. Multilevel thoracic spondylosis without acute fracture or listhesis. No lytic or blastic lesions. CT/CT chest wo IV con IMPRESSION: No acute airspace disease. Fleischner guidelines were followed. Electronically signed by: Juan Miguel MD 06/26/2024 11:14 AM EST Dictated By: Juan Mathews MD Signed By: <Electronically signed by Juan Spain MD in OV> 06/26/24 1114 DD/ 1001 TD/TT: 06/26/24 1049 Coding Quality Coordinator: Assessment & Plan Assessment & Plan (1) Asthma: Code(s): J45.909 - Unspecified asthma, uncomplicated Category: Medical (2) Cough: Code(s): R05.9 - Cough, unspecified Category: Medical (3) ANNI positive: Code(s): R76.8 - Other specified abnormal immunological findings in serum Category: Medical (4) Pulmonary nodule: Code(s): R91.1 - Solitary pulmonary nodule Category: Medical Plan Kike reports good control of respiratory symptoms on current regimen. Advised to continue to use Advair as well as albuterol MDI prior to exercise. We discussed following prescriptions as ordered and patient will taper off of prednisone. He is aware to call office if symptoms recur once discontinuing. Reviewed chest CT which revealed 2 mm pulmonary nodule of RUL, will repeat in one year to assess stability. All questions were answered and patient is in agreement of plan. Will follow up in 3-6 months or sooner if needed. Orders: Orders CT chest wo IV con 11 Months R91.1 - Solitary pulmonary nodule Medications: New albuterol sulfate 90 mcg/actuation 2 puffs inhalation Q4-6H PRN 1 ea 0RF wheezing Coding Level of Care Code Est Pt Level 4 (42388) Diagnoses Asthma J45.909 Cough R05.9 ANNI positive R76.8 Pulmonary nodule R91.1
--- OUTSIDE RECORDS SUMMARY | 2024-07-24 18:19 | XMS_ITS | Encounter Summary ---
Author Organization [employer] Address [address] [place] [address] Care Team Providers Care Data Control Clerk Name Role Phone Juli Mac MD Primary Care Provider [phone]- [phone] Reason for Visit * Reason Onset Date Comments Med Refill 01/08/2024 Encounter Details Date Type Department Care Team ([facility] st Contact Info) Description 01/08/2024 Refill [facility] [address] [place] [address] Juli Mac MD [address] [place] [address] Social History Tobacco Use Types Packs/Day Years [...] 09/05/2024 2:00 PM EDT Office Visit [facility] [address] [place] [address] Juli Mac MD [address] [place] [address] documented as of this encounter Visit Diagnoses Not on filedocumented in this encounter Additional Health Concerns Assessment Noted Time PHQ-9 Depression Total Score: 6 09/05/19 24 10:03 AM EDT documented as of this encounter Care Teams Data Control Clerk Relationship Specialty Start Date End Date Juli Mac MD [address] [place] [address] PCP - General Internal Medicine 03/07/18 documented as of this encounter
--- OUTSIDE RECORDS SUMMARY | 2024-07-24 18:19 | XMS_ITS | Encounter Summary ---
Author Organization [employer] Address [address] [place] [address] Care Team Providers Care Lens Grinder Rough Name Role Phone Juli Mac MD Primary Care Provider [phone]- [phone] Reason for Visit * Reason Onset Date Comments Med Refill 04/22/2024 Encounter Details Date Type Department Care Team ([facility] st Contact Info) Description 04/22/2024 Refill [facility] [address] [place] [address] Juli Mac MD [address] [place] [address] Postprocedural hypothyroidism Social History Tobacco Use Types [...] Description 09/05/2024 2:00 PM EDT Office Visit [facility] [address] [place] [address] Juli Mac MD [address] [place] [address] documented as of this encounter Visit Diagnoses Diagnosis Postprocedural hypothyroidism Postsurgical hypothyroidism documented in this encounter Additional Health Concerns Assessment Noted Time PHQ-9 Depression Total Score: 6 09/05/19 24 10:03 AM EDT documented as of this encounter Care Teams Lens Grinder Rough Relationship Specialty Start Date End Date Juli Mac MD [address] [place] [address] PCP - General Internal Medicine 03/07/18 documented as of this encounter
--- OUTSIDE RECORDS SUMMARY | 2024-07-24 18:19 | XMS_ITS | Encounter Summary ---
Author Organization [employer] Address [address] [place] [address] [address] [place] [address] Care Team Providers Care Defense Travel Administrator Name Role Phone Juli Mac MD Primary Care Provider [phone]- [phone] Reason for Visit * Reason Comments Med Refill Encounter Details Date Type Department Care Team ([facility] st Contact Info) Description 07/09/2024 Refill [facility] [address] [place] [address] Juli Mac MD [address] [place] [address] Chronic midline thoracic back pain; Medial epicondylitis [...] Description 09/05/2024 2:00 PM EDT Office Visit [facility] [address] [place] [address] Juli Mac MD [address] [place] [address] documented as of this encounter Visit Diagnoses Diagnosis Chronic midline thoracic back pain Medial epicondylitis of right elbow documented in this encounter Additional Health Concerns Assessment Noted Time PHQ-9 Depression Total Score: 6 09/05/19 24 10:03 AM EDT documented as of this encounter Care Teams Defense Travel Administrator Relationship Specialty Start Date End Date Juli Mac MD [address] [place] [address] PCP - General Internal Medicine 03/07/18 documented as of this encounter
--- OUTSIDE RECORDS SUMMARY | 2024-07-24 18:19 | XMS_ITS | Clinical Summary ---
Author Organization [employer] Address [address] [place] [address] 7[address] [place] [address] Care Team Providers Care Seam Checker Name Role Phone Juli Mac MD Primary Care Provider [phone]- [phone] Allergies No known active allergies Medications cholecalciferol [...] day. 12 tablet 1 024 Active Nystop 097945 UNIT/GM powderIndications :Intertrigo APPLY TO AFFECTED AREA [...] Type Department Care Team Description 07/09/2024 Refill [facility] [address] [place] [address] Juli Mac MD Chronic midline thoracic back pain; Medial epicondylitis of right elbow 06/25/2024 1:45 PM EST Office Visit [facility] [address] [place] [address] Juli Mac MD Chronic cough (Primary Dx); Elevated BP without diagnosis of hypertension 06/25/2024 Travel 06/04/2024 Refill [facility] [address] [place] [address] Juli Mac MD Chronic cough 05/28/2024 Refill [facility] [address] [place] [address] Liudmila Hogue MD Chronic midline thoracic back pain; Medial epicondylitis of right elbow 05/13/2024 11:15 AM EST Office Visit [facility] [address] [place] [address] Juli Mac MD Chronic cough (Primary Dx); Other male erectile dysfunction; Screen for STD (sexually transmitted disease); Postablative hypothyroidism 05/13/2024 Refill [facility] [address] [place] [address] Juli Mac MD Chronic cough 05/13/2024 Travel 05/03/2024 Telephone [facility] [address] [place] [address] Juli Mac MD Results 05/03/2024 Telephone [facility] [address] [place] [address] Alba Sánchez, RN Results 05/01/2024 2:20 PM EST Office Visit [facility] [address] [place], [place] [phone] Meg Bernard FNP Cough present for greater than 3 weeks (Primary Dx); PND (post-nasal drip) 05/01/2024 Travel 05/01/2024 Telephone [facility] [address] [place] [address] Juli Mac MD Nurse Triage 04/28/2024 Refill [facility] [address] [place] [address] Juli Mac MD Chronic midline thoracic back [...] 09/05/2024 2:00 PM EDT Office Visit [facility] [address] [place], [place] [phone] Juli Mac MD [address] [place], [place] [phone] Health Maintenance Due Date Last Done Comments [...] 05/14/2024 9: 41 AM EST Chronic cough ANIN SCREEN, IFA, W/REFL TITER AND PATTERN Routine [...] EST Narrative 06/26/2024 11:18 AM EST ? [facility] ?[address] ?[place] [address] ? CT Scan Report ? Signed ? Patient: Rico,Kike ?MR#: [id number] ?? [id number] ? : 1980 ?Acct:[id number] ? Age/Sex: 43 / M ?ADM Date: 02/05/25 ? Loc: HO.CT ? Attending : Juli Mac MD ? Ordering Physician: Juli Mac MD ?? Date of Service: 06/26/24 ?? Procedure(s): CT chest wo IV con ?? Accession Number(s): [id number] ? cc: Juli Mac MD ? Report Number: ?? [id number]: Total DLP = ??197.00 mGy-cm ?? EXAMINATION: [...] Miguel MD ??06/26/2024 11:14 AM ?? EST ? Dictated By: ?Juan Mathews MD ? Signed By: ?<Electronically signed by Juan Spain MD in OV> ? 06/26/24 1114 ? DD/ 1001 ? TD/TT: 06/26/24 1049 ? Computer Processing Scheduler: ? Procedure Note Kiara Charles - 06/26/2024 [place] [id number] [facility] [place] [address] CT Scan Report Signed Patient: Kike Gómez#: [id number] : 1980Acct:[id number] Age/Sex: 43 / MADM Date: 06/26/24 Loc: HO.CT Attending Dr: Juli Mac MD Ordering Physician: Juli Mac MD Date of Service: 06/26/24 Procedure(s): CT chest wo IV con Accession Number(s): [id number] cc: Juli Mac MD Report Number: [id number]: Total DLP = 197.00 mGy-cm EXAMINATION: CT [...] Juan Miguel MD 06/26/2024 11:14 AM EST Dictated By: Juan Mathews MD Signed By: <Electronically signed by Juan Spain MDin OV> 06/26/24 1114 DD/ 1001 TD/TT: 06/26/24 1049 Computer Processing Scheduler: Juli Mac MD IMG CT PROCEDURES Edited Re sult - Final * Chlamydia/N. Gonorrhoeae RNA, TMA, Urogenitial (05/14/2024 9:42 AM EST) CT PCR NOT DETECTED Not Detect. [facility] Comment:A not detected test result [...] psychologicalconsequences. NG PCR NOT DETECTED Not Detect. [facility] Comment:A not detected test result [...] AM EST 05/14/2024 2:15 PM EST Narrative [facility] - 05/14/2024 6:56 PM EST Urine us Juli Mac MD LAB MICROBIOLOGY - GENERAL ORDERABLES Final Result [facility] [address] [place] [phone] * Syphilis Screen (05/14/2024 9:41 AM EST) Syphilis Screen Nonreactive Nonreactive [facility] Blood 05/14/2024 9:41 AM EST 05/14/2024 2:25 PM EST us Juli Mac MD LAB BLOOD ORDERABLES Final Result Performing Organization Address [facility] Co de Phone Number [facility] [address] [place] [phone] * TSH W/Reflex to FT4 (05/14/2024 9:41 AM EST) TSH reflex Free T4 1.44 0.32 - 4.0 uIU/mL [facility] Blood Venous blood specimen / Unknown 05/14/2024 9:41 AM EST 05/14/2024 2:25 PM EST us Juli Mac MD LAB BLOOD ORDERABLES Final Result Performing Organization Address [facility] Phone Number [facility] [address] [place] [phone] * SCL-70 Antibody (05/14/2024 9:41 AM EST) SCL-70 Antibody <1.0 NEG <1.0 NEG AI [facility] Comment:THIS TEST WAS PERFOR MED AT:[employer] [address] [address]KCZUNFAISAL KELLY MD Blood Venous blood specimen / Unknown 05/14/2024 9:41 AM EST 05/14/2024 2:25 PM EST Juli Mac MD LAB BLOOD ORDERABLES Final Result Performing Organization Address [facility] Phone Number [facility] [address] [place] [phone] * HIV-1/2 Antigen and Antibodies, Fourth Generation, with Reflexes (05/14/2024 9:41 AM EST) Pathologist [facility] HIV AB/AG Nonreactive Nonreactive [facility] Comment:HIV-1 p24 Ag and/or HIV-1/HIV-2 Ab not detected.A test result that is nonreactive does not exclude thepossibility of exposure to or infection with HIV-1 and/orHIV-2. Nonreactive results in this assay for individualswith prior exposure to HIV-1 and/or HIV-2 may be due toantigen and antibody levels that are below the limit ofdetection of this assay.The [employer] HIV Ag/Ab Combo assay result andsupplemental assay results should be interpreted inconjunction with the patient's clinical presentation,history and other laboratory results. If the results areinconsistent with clinical evidence, additional testing issuggested to confirm the result. Blood Venous blood specimen / Unknown 05/14/2024 9:41 AM EST 05/14/2024 2:25 PM EST us Juli Mac MD LAB BLOOD ORDERABLES Final Result Performing Organization Address [facility] Co de Phone Number [facility] [address] [place] [phone] * (ABNORMAL) Sed Rate by Modified Westergren (05/14/2024 9:41 AM EST) [facility] Erythrocyte Sedimentation Rate 23(H) 0 - 15 MM/HR [facility] Comment:Patients with polycy themia and many hemoglobin abnormalitiesmay have depressed sed rates whereas patients with anemiamay have elevated sed rates. Blood Venous blood specimen / Unknown 05/14/2024 9:41 AM EST 05/14/2024 2:25 PM EST us Juli Mac MD LAB BLOOD ORDERABLES Final Result Performing Organization Address [facility] Co de Phone Number [facility] [address] [place] [address] [phone] * (ABNORMAL) C-reactive Protein (05/14/2024 9:41 AM EST) Pathologist [facility] C Reactive Protein 0.51(H) < or = 0.50 mg/dL [facility] Blood Venous blood specimen / Unknown 05/14/2024 9:41 AM EST 05/14/2024 2:25 PM EST us Juli Mac MD LAB BLOOD ORDERABLES Final Result [facility] [address] [place] [phone] * (ABNORMAL) ANNI Screen,IFA, with Reflex to Titer and Pattern (05/14/2024 9:41 AM EST) [facility] Anti Nuclear Antibody Screen POSITIVE (A) NEGATIVE [facility] Comment:ANNI IFA is a first l ine screen for detecting thepresence of up to approximately 150 autoantibodies invarious autoimmune diseases. A positive ANNI IFA resultis suggestive of autoimmune disease and reflexes totiter and pattern. Further laboratory testing may beconsidered if clinically indicated.For additional information, please refer tohttp://education.Tour Raiser/faq/TLB096(This link is being provided for informational/educational purposes only.) ANNI Titer 1:80(A) titer [facility] Comment:A low level ANNI tite r may be present in pre-clinicalautoimmune diseases and normal individuals. Reference Range <1:40 Negative 1:40-1:80 Low Antibody Level >1:80 Elevated Antibody Level ANNI Pattern (A) [facility] Comment:Nuclear, Few Nuclear Dots Abnormal Flag: ANuclear dots (1-6 in number per cell) pattern is seen inSjogren's syndrome, systemic lupus erythematosus (SLE),systemic sclerosis (scleroderma), polymyositis, andasymptomatic individuals.AC-7: Few Nuclear DotsInternational Consensus on ANNI Patterns(https://doi.org/10.1515/xapl-5488-6330)THIS TEST WAS PERFORMED AT:[employer] [address] [address]LOAQWFAISAL KELLY MD ANNI TITER 2 (REF LAB) [facility] ANNI Pattern 2 [facility] ANNI TITER 3 [facility] ANNI PATTERN 3 [facility] Blood Venous blood specimen / Unknown 05/14/2024 9:41 AM EST 05/14/2024 2:25 PM EST Juli Mac MD LAB BLOOD ORDERABLES Final Result Performing Organization Address [facility] de Phone Number [facility] [address] [place] [phone] * Testosterone, Total, males (Adult), IA (05/14/2024 9:41 AM EST) Testosterone, Total 399 250 - 1100 ng/dL [facility] Comment:For additional infor mation, please refer tohttp://education.Xockets.Shizzlr/faq/CbthpIevziefavcpiAROORTHEI831(This link is being provided for informational/educational purposes only.)This test was developed and its analytical performancecharacteristics have been determined by [employer] [place], [place]. It hasnot been cleared or approved by the U.S. Food and DrugAdministration. This assay has been validated pursuantto the CLIA regulations and is used for clinicalpurposes.THIS TEST WAS PERFORMED AT:[employer]/[facility] [place] [address]XLMAZXSMUNDO ALVARADO MD,PHD Blood Venous blood specimen / Unknown 05/14/2024 9:41 AM EST 05/14/2024 2:25 PM EST us Juli Mac MD LAB BLOOD ORDERABLES Final Result Performing Organization Address City/[facility] Co de Phone Number [facility] [address] [place], [place] [address], [place] [phone] * XR Chest 2 Views (05/01/2024 3:39 PM EST) Anatomical Region Laterality Modality Chest Radiographic Mary ging 05/01/2024 3:39 PM EST Narrative 05/02/2024 7:23 AM EST ? [facility] ?[address] ?[place] [address] ?XRay Report ? Signed ? Patient: Rico,Kike ?MR#: [id number] ?? [id number] ? : 1980 ?Acct:[id number] ? Age/Sex: 43 / M ?ADM Date: 05/01/24 ? Loc: HO.XRAY ? Attending Dr: Meg Bernard [employer] ? Ordering Physician: Meg Bernard [employer] ?? Date of Service: 05/01/24 ?? Procedure(s): XR chest 2V ?? Accession Number(s): [id number] ? cc: Meg Bernard [employer] ? EXAMINATION: ?? XR CHEST ? CLINICAL [...] DD/ 1539 ? TD/TT: 05/01/24 1548 ? Computer Processing Scheduler: ? Procedure Note Kiara Charles - 05/02/[address] [place] [address] XRay Report Signed Patient: Kike Gómez#: [id number] : 1980Acct:[id number] Age/Sex: 43 / MADM Date: 05/01/24 Loc: NATALIE Attending Dr: Meg Bernard [employer] Ordering Physician: Meg Bernard NP Date of Service: 05/01/24 Procedure(s): XR chest 2V Accession Number(s): [id number] cc: Meg Bernard [employer] EXAMINATION: XR CHEST CLINICAL INFORMATION: cough x [...] 05/02/24 0720 DD/ 1539 TD/TT: 05/01/24 1548 Computer Processing Scheduler: Meg JERRY IMG XR PROCEDURES Edited Result - Final * (ABNORMAL) Lipid Panel, Standard (09/05/2023 10:12 AM EDT) Triglycerides 59 <150 mg/dL [facility] Comment:Desirable Triglyceri de: less than 150 mg/dLBorderline High Triglyceride 150-199 mg/dLHigh Triglyceride: 200-499 mg/dLVery High Triglyceride: greater than or equal to 5OO mg/dL Cholesterol 188 <200 mg/dL [facility] Comment:Desirable Cholestero l: less than 200 mg/dLBorderline High Cholesterol: 200-239 mg/dLHigh Cholesterol: greater than 239 mg/dL LDL Cholesterol Calculated 109(H) <100 mg/dL [facility] Comment:Desirable LDL: less than 100 mg/dLNear Optimal/Above Optimal LDL: 110- 129 mg/dLBorderline High LDL: 130-159 mg/dLHigh LDL: 160-189 mg/dLVery High LDL: greater than or equal to 190 mg/dL HDL Cholesterol 68 >40 mg/dL [facility] Comment:Desirable HDL: great er than 40 mg/dL Note: This HDL assay may give artificially low results in patients with liver disease. Blood Venous blood specimen / Unknown 09/05/2023 10:12 AM EDT 09/05/2023 2:22 PM EDT us Juli Mac MD LAB BLOOD ORDERABLES Final Result [facility] [address] [place] [phone] * Hepatitis C Antibody with Reflex to HCV, RNA, Quantitative, Real-Time PCR (08/23/2022 10:25 AM EDT) Hepatitis C Antibody NON-REACT LAURA NON-REACT LAURA [facility] Index <0.02 <1.00 [facility] Comment: HCV antibody was non-reactive. There is no laboratory evidence of HCV infection. In most cases, no further action is required. However, if recent HCV exposure is suspected, a test for HCV RNA (test code 36134) is suggested. For additional information please refer to http://education.3Nod/faq/EDU80d8 (This link is being provided for informational/ educational purposes only.) Blood Venous blood specimen / Unknown 08/23/2022 10:25 AM EDT 08/23/2022 10:27 AM EDT us Juli Mac MD LAB BLOOD ORDERABLES Final Result [facility] [address], [place] [address] [facility] [address] [place] [phone] from Last 3 Months or Most Recently Relevant to Health Maintenance Insurance BS Care Teams Seam Checker Relationship Specialty Start Date End Date Juli Mac MD [address] [place] [address] PCP - General Internal Medicine 03/07/18
--- OUTSIDE RECORDS SUMMARY | 2024-07-24 18:19 | XMS_ITS | Encounter Summary ---
Author Organization [employer] Address [address] [facility] [address], [place] [address] Care Team Providers Care Congregational Care Pastor Name Role Phone Juli Mac MD Primary Care Provider [phone] Reason for Visit * Reason Onset Date Comments Results 09/12/2023 Encounter Details Date Type Department Care Team ([facility] st Contact Info) Description 09/12/2023 Telephone [facility] [address] [place] [address] Juli Mac MD [address] [place] [address] Results Social History Tobacco Use Types Packs/Day [...] 09/26/2023 4:11 PM EDT Placed call to [facility] lab regarding results. Lab did not have results yet and lab states only a coupleof techs in lab are able to test. Pt did have test done on 10/15/23, but unable to determine timeframe for results. * Telephone Encounter - Anca Recio - 09/25/2023 1:33 PM EDT Tc from pt requesting results on semen analysis done at [facility]. Pt is also having difficulty getting tadalafil (Cialis) 5 MG tablet from pharmacy. Pt is due for refill due to pharmacy only giving 12 tablets but was advised by pharmacy insurance will not cover until the . Please contact pt at [phone] * Telephone Encounter - Wing Jennifer RN - 09/14/2023 3:40 PM EDT Tc to pt regarding semen lab cup. Said I would greg [facility] at [phone]. Noni at [facility] said the semen analysis can be collected [...] Description 09/05/2024 2:00 PM EDT Office Visit [facility] [address] [place] [address] Juli Mac MD [address] [place] [address] documented as of this encounter Visit Diagnoses Not on filedocumented in this encounter Additional Health Concerns Assessment Noted Time PHQ-9 Depression Total Score: 6 09/05/19 24 10:03 AM EDT documented as of this encounter Care Teams Congregational Care Pastor Relationship Specialty Start Date End Date Juli Mac MD [address] [place] [address] PCP - General Internal Medicine 03/07/18 documented as of this encounter
--- OUTSIDE RECORDS SUMMARY | 2024-07-24 18:19 | XMS_ITS | Encounter Summary ---
Author Organization [employer] Address [address] [facility] 7 [place] [address] Care Team Providers Care Legal File Clerk Name Role Phone Juli Mac MD Primary Care Provider [phone] Encounter Details Date Type Department Care Team ([facility] Contact Info) Description 09/07/2023 Orders Only [facility] [address] [place] [address] Juli Mac MD [address] [place] [address] Other male erectile dysfunction (Primary Dx); Postprocedural [...] 2:00 PM EDT Office Visit [facility] [address] [place] [address] Juli Mac MD [address] [place] [address] documented as of this encounter Procedures Procedure Name Priority Date/Time Associated Diagnosis Comments TESTOSTERONE, FREE (DIALYSIS) AND TOTAL,MS Routine 09/27/2023 2:56 PM EDT Postprocedural hypothyroidism Other male erectile dysfunction documented in this encounter Results * Testosterone, Free (Dialysis) And Total, MS (09/27/2023 2:56 PM EDT) Testosterone, Total 272 250 - 1100 ng/dL [facility] Comment:For additional infor mation, please refer tohttp://education.Sterio.me.BioCee/faq/CbfzsJbhcnrxitsnnHSCWLCHAV204(This link is being provided for informational/educational purposes only.)This test was developed and its analytical performancecharacteristics have been determined by [employer] [place], [place]. It hasnot been cleared or approved by the U.S. Food and DrugAdministration. This assay has been validated pursuantto the CLIA regulations and is used for clinicalpurposes. Testosterone, Free 43.2 35.0 - 155.0 pg/mL [facility] Comment:This test was develo ped and its analytical performancecharacteristics have been determined by [employer] [place], [place]. It hasnot been cleared or approved by the U.S. Food and DrugAdministration. This assay has been validated pursuantto the CLIA regulations and is used for clinicalpurposes.THIS TEST WAS PERFORMED AT:[employer] [place] [address]HXIEBXDMUNDO ALVARADO MD,PHD Blood Venous blood specimen / Unknown 09/27/2023 2:56 PM EDT 09/27/2023 5:10 PM EDT Juli Mac MD LAB BLOOD ORDERABLES Final Result [facility] [address] [place] [address] [phone] documented in this encounter Visit Diagnoses Diagnosis Other male erectile dysfunction- Primary Postprocedural hypothyroidism Postsurgical hypothyroidism documented in this encounter Additional Health Concerns Assessment Noted Time PHQ-9 Depression Total Score: 6 09/05/19 24 10:03 AM EDT documented as of this encounter Care Teams Legal File Clerk Relationship Specialty Start Date End Date Juli Mac MD [address] [place] [phone] PCP - General Internal Medicine 03/07/18 documented as of this encounter
--- OUTSIDE RECORDS SUMMARY | 2024-07-24 18:19 | XMS_ITS | Encounter Summary ---
Author Organization [employer] Address [address] [facility] 7t [place] [address] Care Team Providers Care Imaging Tech Name Role Phone Juli Mac MD Primary Care Provider [phone] Encounter Details Date Type Department Care Team [...] 2:00 PM EDT Office Visit [facility] [address] [place] [address] Juli Mac MD [address] [place] [address] documented as of this encounter Visit Diagnoses Not on filedocumented in this encounter Additional Health Concerns Assessment Noted Time PHQ-9 Depression Total Score: 6 09/05/19 24 10:03 AM EDT documented as of this encounter Care Teams Imaging Tech Relationship Specialty Start Date End Date Juli Mac MD [address] [place] [address] PCP - General Internal Medicine 03/07/18 documented as of this encounter
--- OUTSIDE RECORDS SUMMARY | 2024-07-24 18:19 | XMS_ITS | Encounter Summary ---
Author Organization [employer] Address [address] [place] [address] Care Team Providers Care Maintenance Engineer Name Role Phone Juli Mac MD Primary Care Provider [phone] Reason for Visit * Reason Comments Follow-up Chronic cough Encounter Details Date Type Department Care Team ([facility] Contact Info) Description 06/25/2024 1:45 PM EST Office Visit [facility] [address] [place] [address] Juli Mac MD [address] [place] [address] Chronic cough (Primary Dx); Elevated BP without [...] ONCE PER DAY. 90 tablet 1 Nystop 799951 UNIT/GM powder APPLY TO AFFECTED AREA TWICE [...] Upcoming Encounters Date Type Department Care Team ([facility] st Contact Info) Description 09/05/2024 2:00 PM EDT Office Visit [facility] [address] [place] [address] Juli Mac MD [address] [place] [address] documented as of this encounter Visit Diagnoses Diagnosis Chronic cough- Primary Cough Elevated BP without diagnosis of hypertension documented in this encounter Additional Health Concerns Assessment Noted Time PHQ-9 Depression Total Score: 6 09/05/19 24 10:03 AM EDT documented as of this encounter Care Teams Maintenance Engineer Relationship Specialty Start Date End Date Juli Mca MD [address] [place] [address] PCP - General Internal Medicine 03/07/18 documented as of this encounter
--- OUTSIDE RECORDS SUMMARY | 2024-07-24 18:19 | XMS_ITS | Encounter Summary ---
Author Organization [employer] Address [address] [facility] 7 [place] [address] Care Team Providers Care Customer Service Teller Name Role Phone Juli Mac MD Primary Care Provider [phone] Encounter Details Date Type Department Care Team ([facility] st Contact Info) Description 09/28/2023 Orders Only [facility] [address] [place] [address] Juli Mac MD [address] [place] [address] Other male erectile dysfunction Social History Tobacco [...] Upcoming Encounters Date Type Department Care Team ([facility] st Contact Info) Description 09/05/2024 2:00 PM EDT Office Visit [facility] [address] [place] [address] Juli Mac MD [address] [place] [address] documented as of this encounter Visit Diagnoses Diagnosis Other male erectile dysfunction documented in this encounter Additional Health Concerns Assessment Noted Time PHQ-9 Depression Total Score: 6 09/05/19 24 10:03 AM EDT documented as of this encounter Care Teams Customer Service Teller Relationship Specialty Start Date End Date Juli Mac MD [address] [place] [address] PCP - General Internal Medicine 03/07/18 documented as of this encounter
--- OUTSIDE RECORDS SUMMARY | 2024-07-24 18:19 | XMS_ITS | Encounter Summary ---
Author Organization [facility] Address [address] [place] [id number] Care Team Providers Care Staffing Administrator Name Role Phone Juli Mac MD Primary Care Provider [phone] Encounter Details Date Type Department Care Team (Late Contact Info) Description 02/10/2023 Orders Only [facility] MED & PEDS [address] [place] [address] Juli Mac MD [address] [place] [address] Chronic midline thoracic back pain (Primary Dx) [...] 2:00 PM EDT Office Visit [facility] MED [facility] PEDS [address] [place] [address] Juli Mac MD [address] [place] [address] documented as of this encounter Visit Diagnoses Diagnosis Chronic midline thoracic back pain- Primary documented in this encounter Additional Health Concerns Assessment Noted Time PHQ-9 Depression Total Score: 0 08/24/19 23 9:52 AM EDT documented as of this encounter Care Teams Staffing Administrator Relationship Specialty Start Date End Date Juli Mac MD [address] [place] [id number] PCP - General Internal Medicine 03/07/18 documented as of this encounter
--- OUTSIDE RECORDS SUMMARY | 2024-07-24 18:19 | XMS_ITS | Clinical Summary ---
Author Organization [facility] ity Address [address] [place] [address] Care Team Providers Care Hydro Generation Supervisor Name Role Phone Unavailable Primary Care Provider [...]
== END 2024-07-24 15:45 | disposition home or self-care (01) ==
PROVIDERS: PCP Internal Medicine; Visit Provider Nurse Practitioner Family
DX: J45.909 Unspecified asthma, uncomplicated (principal); R05.9 Cough, unspecified; R76.8 Other specified abnormal immunological findings in serum; R91.1 Solitary pulmonary nodule
CPT/HCPCS: 99214

== ENCOUNTER 2024-11-05 15:14 | Outpatient (AMB) | payer BC, SELFPAY ==
[2024-11-05 15:17] VITALS: BP 108/68; PULSE 66; O2SAT 96; BMI 31.0
--- NOTE | 2024-11-05 15:17 | MHC.OFFVIS ---
Vital Signs 11/05/24 15:17 Height 5 ft 8 in Weight 204 lb BMI 31.0 BP 108/68 Blood Pressure Location Lt brachial Position Sitting Pulse 66 Pulse Source Pulse Oximeter Pulse Oximetry (%) 96 Oxygen Delivery Method Room Air Intake Visit Reasons: chronic cough/PFT FU Allergies No Known Allergies [No Known Allergies*] Allergy (Verified 11/05/24 15:22) HPI HPI chronic cough/PFT FU: Details: Kike is a pleasant 43 year old male, former minimal smoker, quit 15+ years ago with underlying asthma and hypothyroidism. He was initially referred by PCP for pulmonary evaluation for chronic cough as well as CXR which revealed reticular changes of bases. Prior chest CT 06/2024 was unremarkable other than a 2 mm subpleural nodule of the RUL, with repeat CT ordered for 06/2025 to assess stability. Since the last visit, he reports excellent control of rspiratory symptoms on Advair, rarely requiring albuterol MDI. He denies any visits to urgent care or hospitalizations related to respiratory distress. [facility] Medical History Medial epicondylitis of right elbow Hypothyroidism Social History Alcohol intake: current Alcohol intake frequency: a few times a month Alcohol type: hard liquor Patient Tobacco Use Status: Former Tobacco user Cigarette Packs Per Day: 0.5 Years Smoked: 5 years Review of Systems Const Denies chills, Denies excessive sweating, Denies fever(s), Denies headache(s) and Denies night sweats Eyes Denies dry eyes, Denies irritation and Denies itchy eyes ENT Reports Normal hearing present, Denies headache(s), Denies nasal congestion, Denies nasal discharge, Denies post nasal drip and Denies sore throat Card Denies chest pain, Denies chest pain at rest, Denies chest pain with activity, Denies claudication, Denies leg edema, Denies dyspnea, Denies dyspnea on exertion, Denies orthopnea and Denies paroxysmal nocturnal dyspnea Resp Denies chest congestion, Denies cough, Denies excessive phlegm production, Denies pain on inspiration, Denies pain with cough, Denies dyspnea, Denies dyspnea on exertion, Denies stridor and Denies wheezing Musc Denies myalgias Neuro Reports Normal hearing present and Denies headache(s) Endo Denies excessive sweating Raymundo/Lymph Denies lymphadenopathy Aller/Immun Denies itchy eyes, Denies seasonal rhinorrhea and Denies wheezing Physical Exam Vital Signs: Last Vital Signs Pulse 66 11/05/24 15:17 BP 108/68 11/05/24 15:17 Pulse Ox 96 11/05/24 15:17 Oxygen Delivery Method Room Air 11/05/24 15:17 BMI result Body Mass Index 31.0 Const General: cooperative, healthy appearing, comfortable, no acute distress, well developed and alert Orientation/consciousness: patient oriented x3 Limitations: no limitations HEENT Head: Yes normal to inspection, Yes normocephalic and Yes atraumatic Ears: hearing grossly normal bilaterally and external ears normal Eyes General: appearance normal, both eyes and all related structures Eyelids: Yes eyelids normal Sclerae: sclerae normal EOM: EOMs intact bilaterally Neck Neck: Yes normal visual inspection and Yes no lymphadenopathy Lymphatic: no lymphadenopathy noted Chest Chest palpation & inspection: normal inspection of the chest Resp Effort & Inspection: normal respiratory effort, able to speak in complete sentences, no audible wheezes, no cough, no stridor, not tachypneic, no tripod positioning and no use of accessory muscles Auscultation: clear to auscultation bilaterally Cardio Jugular venous distension: no JVD Rate: regular rate Rhythm: regular rhythm Skin Other: warm, dry General skin exam: no rashes or lesions noted Neuro General: patient oriented x3 Cranial nerves: Yes Normal hearing present Cognition (Neuro): normal cognition Gait exam (Neuro): Normal gait present Extrem General: Yes normal to inspection, Yes capillary refill normal, Yes no clubbing, cyanosis or edema and Yes no pedal edema Psych Appearance: grossly normal and well kempt Speech and movement: Normal speech and movement present and Clear speech present Affect: normal affect Attitude: cooperative Thought process: Normal thought process present Thought content: Normal thought content present Insight: Good insight present (Psych) Judgement: Good judgement present (Psych) Assessment & Plan Assessment & Plan (1) Asthma: Code(s): J45.909 - Unspecified asthma, uncomplicated Category: Medical (2) ANNI positive: Code(s): R76.8 - Other specified abnormal immunological findings in serum Category: Medical (3) Pulmonary nodule: Code(s): R91.1 - Solitary pulmonary nodule Category: Medical Plan Kike reports good control of respiratory symptoms on current regimen, advised to continue Advair and albuterol MDI PRN. He is aware if symptoms worsen to call. Reviewed chest CT which revealed 2 mm pulmonary nodule of RUL, order placed to repeat in one year to assess stability 06/2025. Prior mild elevations in autoimmune work up however symptoms controlled at this time and will defer. All questions were answered and patient is in agreement of plan. Will follow up in 6-9 months or sooner if needed. Medications: Refilled budesonide-formoterol 160-4.5 mcg/actuation (Symbicort) 2 puffs inhalation Q12H 1 ea 11RF Coding Level of Care Code Est Pt Level 3 (41230) Diagnoses Asthma J45.909 ANNI positive R76.8 Pulmonary nodule R91.1
--- OUTSIDE RECORDS SUMMARY | 2024-11-05 17:45 | XMS_ITS | Encounter Summary ---
Author Organization [employer] Address [address] [place] [address] [address], [place] [address] Care Team Providers Care Fish Smoker Name Role Phone Juli Mac MD Primary Care Provider [phone] Encounter Details Date Type Department Care Team ([facility] st Contact Info) Description 02/10/2023 Orders Only [facility] MED & PEDS [address] [place] [address] Juli Mac MD [address] [place] [address] Chronic midline thoracic back pain (Primary Dx) [...] as of this encounter Plan of Treatment Not on file documented as of this encounter Visit Diagnoses Diagnosis Chronic midline thoracic back pain- Primary documented in this encounter Additional Health Concerns Assessment Noted Time PHQ-9 Depression Total Score: 0 08/24/19 23 9:52 AM EDT documented as of this encounter Care Teams Fish Smoker Relationship Specialty Start Date End Date Juli Mac MD [address] [place], [place] [id number] PCP - General Internal Medicine 03/07/18 documented as of this encounter
== END 2024-11-05 15:37 | disposition home or self-care (01) ==
LOC: HO.HPSW 15:15
PROVIDERS: PCP Internal Medicine; Visit Provider Nurse Practitioner Family
DX: J45.909 Unspecified asthma, uncomplicated (principal); R76.8 Other specified abnormal immunological findings in serum; R91.1 Solitary pulmonary nodule
CPT/HCPCS: 99213

== ENCOUNTER → 2024-11-05 15:14 | Outpatient (BNVA) | payer BC, SELFPAY | PROVIDERS: PCP Internal Medicine; Visit Provider Nurse Practitioner Family ==